=== PATIENT | female | born 1930 | race African-American/Black ===

== ENCOUNTER 2016-07-09 14:54 | Inpatient (IN) | payer MEDICARE, MEDICAID ==
[~2016-07-09] VITALS: Ht 165.1 cm; Wt 72.6 kg
[2016-07-09 15:37] VITALS: BP 172/116
--- NOTE | 2016-07-09 16:14 | Diagnostic Imaging Report ---
Indication: Chest Pain Comparison: None A single view chest radiograph was obtained. Findings: No definite infiltrate or pulmonary vascular congestion identified. The heart is enlarged. The aorta is mildly enlarged consistent with atherosclerotic vascular disease. The bones are osteopenic. Impression: No acute disease
[2016-07-09] MEDS ORDERED: Diltiazem 25mg/5ml IV ONE ×3 (16:15→21:00)
[2016-07-09] MEDS ORDERED: Calcium Gluconate 1gm/10ml vial IVP ONE (16:15)
[2016-07-09 17:00] LABS: MEAN CORPUSCULAR HEMOGLOBIN 31.3 PG (27.0-31.0); MEAN CORPUSCULAR HGB CONC 32.1 G/DL (32.0-36.0); MEAN CORPUSCULAR VOLUME 98 FL (80-99); MEAN PLATELET VOLUME 9.1 FL (6.5-10.1); PLATELET COUNT 193 K/UL (150-450); RED BLOOD COUNT 5.41 M/UL (4.20-5.40); RED CELL DISTRIBUTION WIDTH 12.4 % (11.6-14.8); WHITE BLOOD COUNT 6.8 K/UL (4.8-10.8)
[2016-07-09 17:11] LABS: ALANINE AMINOTRANSFERASE 26 U/L (3-33); ALBUMIN/GLOBULIN RATIO 0.9 (1.0-2.7); ANION GAP 11 (5-15); ASPARTATE AMINO TRANSFERASE 46 U/L (5-40); CALCIUM 11.5 mg/dL (8.6-10.2); CARBON DIOXIDE 24 mEQ/L (20-30); CHLORIDE 97 mEQ/L (98-107); HEMOLYSIS 14; POTASSIUM 4.3 mEQ/L (3.4-4.9); SODIUM 132 mEQ/L (135-145); TOTAL PROTEIN 9.3 g/dL (6.6-8.7); TROPONIN I < 0.30 ng/mL (<=0.30)
[2016-07-09 17:22] LABS: CKMB < 1.5 ng/mL (< 3.8)
[2016-07-09 17:24] LABS: INR 1.2 (0.9-1.1)
[2016-07-09 17:33] LABS: BILIRUBIN,DIRECT 0.8 mg/dL (0.1-0.3)
[2016-07-09 17:54] LABS: APPEARANCE,URINE CLEAR; KETONES,URINE 3+ (NEGATIVE); LEUKOCYTE ESTERASE ,URINE 2+ (NEGATIVE); NITRITE,URINE POSITIVE (NEGATIVE); PH,URINE 5 (4.5-8.0); PROTEIN,URINE 1+ (NEGATIVE); UROBILINOGEN,URINE 4 MG/DL (0.0-1.0)
[2016-07-09] MEDS ORDERED: Enoxaparin 80mg Inj SUBQ ONE (18:00)
[2016-07-09 18:06] LABS: BACTERIA,URINE MANY /HPF; SQUAMOUS EPITHELIAL CELL,UR FEW /LPF (NONE/OCC)
[2016-07-09 18:13] LABS: BAND NEUTROPHILS % (MANUAL) 0 % (0-8); BASOPHILS % (MANUAL) 0 % (0-2); EOSINOPHILS % (MANUAL) 0 % (0-3); LYMPHOCYTES % (MANUAL) 9 % (20-45); NEUTROPHILS % (MANUAL) 87 % (45-75); PLATELET ESTIMATE ADEQUATE; PLATELET MORPHOLOGY NORMAL; TOTAL CELLS COUNTED 100
[2016-07-09 18:42] VITALS: BP 162/92
--- NOTE | 2016-07-09 19:40 | Emergency Room Report ---
History of Present Illness General Chief Complaint: General Complaint Source: Patient, Medical Record Present Illness HPI 86-year-old female presents ED her evaluation. Per EMS patient was complaining of flank pain x1 day. Pain is bilateral. 06/11. Throbbing. Nonradiating. No aggravating or relieving factors. Denies chest pain or shortness of breath. Patient is bedbound. Nonambulatory. No other aggravating or relieving factors. Denies any other associated symptoms Allergies: Coded Allergies: CODEINE (Verified Allergy, Intermediate, 07/09/16) MORPHINE (Verified Allergy, Intermediate, 07/09/16) PENICILLINS (Verified Allergy, Intermediate, 07/09/16) Patient History Past Medical History: HTN, AFib Past Surgical History: none Pertinent Family History: none Social History: Denies: alcohol use, drug use, smoking Now: No Immunizations: UTD Reviewed Nursing Documentation: PMH: Agreed, PSxH: Agreed Nursing Documentation-PMH Hx Hypertension: Yes Review of Systems All Other Systems: negative except mentioned in HPI Physical Exam Vital Signs Date Time Temp Pulse Resp B/P Pulse Ox O2 Delivery O2 Flow Rate FiO2 07/09/16 14:50 97.2 78 16 164/90 98 Room Air Sp02 EP Interpretation: reviewed, normal General Appearance: no apparent distress, alert, GCS 15, non-toxic Head: normocephalic Eyes: bilateral eye PERRL, bilateral eye normal inspection ENT: normal ENT inspection Neck: normal inspection Respiratory: chest non-tender, lungs clear, normal breath sounds, speaking full sentences Cardiovascular #1: tachycardia Gastrointestinal: normal inspection Rectal: deferred Genitourinary: no CVA tenderness Musculoskeletal: swelling - b/l LE Neurologic: alert, oriented x3, responsive Psychiatric: normal inspection Skin: normal inspection Lymphatic: normal inspection Procedures Critical Care Time Critical Care Time i. I feel this is a highly complex case requiring extensive working including EKG/Rhythm strip, Xray/CT/US, Blood/urine lab work, repeat exams while in ED, and administration of strong opiates/narcotics for pain control, admission to hospital or close patient follow up. Total time: 30 min bedside evaluation and treatment excludes procedures (EKG). Reason for critical care: atrial fibrillation with RVR Possible complications: hypotension, hypertension, WA, shock, arrhythmias, metabolic acidosis, end organ damage, respiratory failure. Interventions: As, IV fluids, EKG, chest x-ray, Cardizem. abx. lovenox Course: Patient brought in for bilateral leg pain and swelling. EKG shows afib wtih RVR - given cardizem with cardioversion. Ultrasound shows acute thrombus in left leg. Given Lovenox. Given antibiotics. Consultations: nursing staff, EMS, family Performed by: Dr Baker Tolerated well condition = serious j. because of unstable vital signs this patient had a condition that could potentially threaten life or limb. I feel this is a critical patient who required my full attention while patient was considered critical. Total Critical Care Time excluding procedures was greater than 35 minutes Medical Decision Making Diagnostic Impression: Primary Impression: Atrial fibrillation with rapid ventricular response Additional Impressions: DVT (deep venous thrombosis) Qualified Codes: I82.402 - Acute embolism and thrombosis of unspecified deep veins of left lower extremity UTI (urinary tract infection) Qualified Codes: N39.0 - Urinary tract infection, site not specified ER Course Hospital Course 86-year-old female presents ED for bilateral leg swelling, hypertensive Differential diagnoses include: DVT, cellulitis, sepsis Clinical course Patient placed on stretcher. on monitoring manager which shows A. fib with RVR. Cardizem given with cardioversion. After initial history and physical I ordered labs, EKG, chest x-ray, US labs reviewed- no leukocytosis, hemoglobin/hematocrit ok, electrolytes okay, troponins negative, UA + bacteria EKG - afib wtih RVR, no acute changes Chest x-ray- no acute process doppler LE - acute DVT LLE IV fluids given. Antibiotics given. Lovenox given. Case discussed with Dr. Farah and he agreed to accept the patient to his service for further care and support I. I feel this is a highly complex case requiring extensive working including EKG/Rhythm strip, Xray/CT/US, Blood/urine lab work, repeat exams while in ED, and administration of strong opiates/narcotics for pain control, admission to hospital or close patient follow up. Diagnosis - afib with RVR, DVT, UTI admitted to telemetry in serious condition Labs Test 07/09/16 16:30 07/09/16 16:31 07/09/16 17:18 Prothrombin Time 12.0 SEC (9.30-11.50) Prothromb Time International Ratio 1.2 (0.9-1.1) Activated Partial Thromboplast Time 34 SEC (23-33) White Blood Count 6.8 K/UL (4.8-10.8) Red Blood Count 5.41 M/UL (4.20-5.40) Hemoglobin 16.9 G/DL (12.0-16.0) Hematocrit 52.7 % (37.0-47.0) Mean Corpuscular Volume 98 FL (80-99) Mean Corpuscular Hemoglobin 31.3 PG (27.0-31.0) Mean Corpuscular Hemoglobin Concent 32.1 G/DL (32.0-36.0) Red Cell Distribution Width 12.4 % (11.6-14.8) Platelet Count 193 K/UL (150-450) Mean Platelet Volume 9.1 FL (6.5-10.1) Neutrophils (%) (Auto) % (45.0-75.0) Lymphocytes (%) (Auto) % (20.0-45.0) Monocytes (%) (Auto) % (1.0-10.0) Eosinophils (%) (Auto) % (0.0-3.0) Basophils (%) (Auto) % (0.0-2.0) Differential Total Cells Counted 100 Neutrophils % (Manual) 87 % (45-75) Lymphocytes % (Manual) 9 % (20-45) Monocytes % (Manual) 4 % (1-10) Eosinophils % (Manual) 0 % (0-3) Basophils % (Manual) 0 % (0-2) Band Neutrophils 0 % (0-8) Platelet Estimate Adequate Platelet Morphology Normal Red Blood Cell Morphology Normal Sodium Level 132 mEQ/L (135-145) Potassium Level 4.3 mEQ/L (3.4-4.9) Chloride Level 97 mEQ/L (98-107) Carbon Dioxide Level 24 mEQ/L (20-30) Anion Gap 11 (5-15) Blood Urea Nitrogen 21 mg/dL (7-23) Creatinine 1.0 mg/dL (0.5-0.9) Estimat Glomerular Filtration Rate mL/min (>60) Glucose Level 128 mg/dL (74-106) Calcium Level 11.5 mg/dL (8.6-10.2) Total Bilirubin 1.6 mg/dL (0.0-1.2) Direct Bilirubin 0.8 mg/dL (0.1-0.3) Aspartate Amino Transf (AST/SGOT) 46 U/L (5-40) Alanine Aminotransferase (ALT/SGPT) 26 U/L (3-33) Alkaline Phosphatase 139 U/L (35-104) Total Creatine Kinase 40 U/L (26-140) Creatine Kinase MB < 1.5 ng/mL (< 3.8) Creatine Kinase MB Relative Index Troponin I < 0.30 ng/mL (<=0.30) Total Protein 9.3 g/dL (6.6-8.7) Albumin 4.6 g/dL (3.5-5.2) Globulin 4.7 g/dL Albumin/Globulin Ratio 0.9 (1.0-2.7) Urine Color Yellow Urine Appearance Clear Urine pH 5 (4.5-8.0) Urine Specific [place] 1.020 (1.005-1.035) Urine Protein 1+ (NEGATIVE) Urine Glucose (UA) Negative (NEGATIVE) Urine Ketones 3+ (NEGATIVE) Urine Occult Blood 1+ (NEGATIVE) Urine Nitrite Positive (NEGATIVE) Urine Bilirubin Negative (NEGATIVE) Urine Urobilinogen 4 MG/DL (0.0-1.0) Urine Leukocyte Esterase 2+ (NEGATIVE) Urine RBC 2-4 /HPF (0 - 2) Urine WBC 5-10 /HPF (0 - 2) Urine Squamous Epithelial Cells Few /LPF (NONE/OCC) Urine Bacteria Many /HPF (NONE) EKG Diagnostic Results Rate: tachycardiac Rhythm: other - afib wtih RVR ST Segments: no acute changes ASA given to the pt in ED: No Rhythm Strip Diag. Results EP Interpretation: yes Rhythm: no PVC's, no ectopy Chest X-Ray Diagnostic Results EP Interpretation: Yes Findings: no consolidation, no effusion, no pneumothorax, no acute cardiopulmonary disease Number of Views: 1 CT/MRI/US Diagnostic Results CT/MRI/US Diagnostic Results : Imaging Test Ordered: US Impression bilateral doppler US - acute DVT in LLE Last Vital Signs Date Time Temp Pulse Resp B/P Pulse Ox O2 Delivery O2 Flow Rate FiO2 07/09/16 18:42 97.0 115 19 162/92 99 Room Air Status: improved Disposition: ADMITTED INPATIENT Condition: Serious Referrals: NON PHYSICIAN (PCP) CLARISSA BAKER M.D. Jul 09, 2016 19:39
[2016-07-09] MEDS ORDERED: BACLOFEN10 MG ORAL (20:09)
[2016-07-09] MEDS ORDERED: ASCORBIC ACID500 MG ORAL (20:09)
[2016-07-09] MEDS ORDERED: LACTULOSE20 GM/301 ORAL (20:09)
[2016-07-09] MEDS ORDERED: LEVOTHYROXINE125 MCG ORAL (20:09)
[2016-07-09] MEDS ORDERED: COLCHICINE0.6 M1 PO (20:09)
[2016-07-09] MEDS ORDERED: FUROSEMIDE40 MG ORAL (20:09)
[2016-07-09] MEDS ORDERED: BENAZEPRIL HCL40 MG ORAL (20:09)
[2016-07-09] MEDS ORDERED: MELATONIN3 M2 PO (20:09)
[2016-07-09] MEDS ORDERED: DOCUSATE SODIU100 MG ORAL (20:09)
[2016-07-09] MEDS ORDERED: ALLOPURINOL300 M1 ORAL (20:16)
[2016-07-09] MEDS ORDERED: ELIQUIS2.5 MG PO (20:16)
--- NOTE | 2016-07-09 20:17 | History & Physical ---
History and Physical History & Physicial The patient was seen and examined at bedside and all new and available data was reviewed in the patients chart Last 24 Hour Vital Signs Date Time Temp Pulse Resp B/P Pulse Ox O2 Delivery O2 Flow Rate FiO2 07/09/16 18:42 97.0 115 19 162/92 99 Room Air 07/09/16 16:44 111 174/109 07/09/16 15:37 97.0 126 27 172/116 99 Room Air 07/09/16 14:50 97.2 78 16 164/90 98 Room Air Labs Test 07/09/16 16:30 07/09/16 16:31 07/09/16 17:18 Prothrombin Time 12.0 SEC (9.30-11.50) Prothromb Time International Ratio 1.2 (0.9-1.1) Activated Partial Thromboplast Time 34 SEC (23-33) White Blood Count 6.8 K/UL (4.8-10.8) Red Blood Count 5.41 M/UL (4.20-5.40) Hemoglobin 16.9 G/DL (12.0-16.0) Hematocrit 52.7 % (37.0-47.0) Mean Corpuscular Volume 98 FL (80-99) Mean Corpuscular Hemoglobin 31.3 PG (27.0-31.0) Mean Corpuscular Hemoglobin Concent 32.1 G/DL (32.0-36.0) Red Cell Distribution Width 12.4 % (11.6-14.8) Platelet Count 193 K/UL (150-450) Mean Platelet Volume 9.1 FL (6.5-10.1) Neutrophils (%) (Auto) % (45.0-75.0) Lymphocytes (%) (Auto) % (20.0-45.0) Monocytes (%) (Auto) % (1.0-10.0) Eosinophils (%) (Auto) % (0.0-3.0) Basophils (%) (Auto) % (0.0-2.0) Differential Total Cells Counted 100 Neutrophils % (Manual) 87 % (45-75) Lymphocytes % (Manual) 9 % (20-45) Monocytes % (Manual) 4 % (1-10) Eosinophils % (Manual) 0 % (0-3) Basophils % (Manual) 0 % (0-2) Band Neutrophils 0 % (0-8) Platelet Estimate Adequate Platelet Morphology Normal Red Blood Cell Morphology Normal Sodium Level 132 mEQ/L (135-145) Potassium Level 4.3 mEQ/L (3.4-4.9) Chloride Level 97 mEQ/L (98-107) Carbon Dioxide Level 24 mEQ/L (20-30) Anion Gap 11 (5-15) Blood Urea Nitrogen 21 mg/dL (7-23) Creatinine 1.0 mg/dL (0.5-0.9) Estimat Glomerular Filtration Rate mL/min (>60) Glucose Level 128 mg/dL (74-106) Calcium Level 11.5 mg/dL (8.6-10.2) Total Bilirubin 1.6 mg/dL (0.0-1.2) Direct Bilirubin 0.8 mg/dL (0.1-0.3) Aspartate Amino Transf (AST/SGOT) 46 U/L (5-40) Alanine Aminotransferase (ALT/SGPT) 26 U/L (3-33) Alkaline Phosphatase 139 U/L (35-104) Total Creatine Kinase 40 U/L (26-140) Creatine Kinase MB < 1.5 ng/mL (< 3.8) Creatine Kinase MB Relative Index Troponin I < 0.30 ng/mL (<=0.30) Total Protein 9.3 g/dL (6.6-8.7) Albumin 4.6 g/dL (3.5-5.2) Globulin 4.7 g/dL Albumin/Globulin Ratio 0.9 (1.0-2.7) Urine Color Yellow Urine Appearance Clear Urine pH 5 (4.5-8.0) Urine Specific [place] 1.020 (1.005-1.035) Urine Protein 1+ (NEGATIVE) Urine Glucose (UA) Negative (NEGATIVE) Urine Ketones 3+ (NEGATIVE) Urine Occult Blood 1+ (NEGATIVE) Urine Nitrite Positive (NEGATIVE) Urine Bilirubin Negative (NEGATIVE) Urine Urobilinogen 4 MG/DL (0.0-1.0) Urine Leukocyte Esterase 2+ (NEGATIVE) Urine RBC 2-4 /HPF (0 - 2) Urine WBC 5-10 /HPF (0 - 2) Urine Squamous Epithelial Cells Few /LPF (NONE/OCC) Urine Bacteria Many /HPF (NONE) Dictation number : [id number] (Patient was seen earlier today. Signature timestamp does not reflect patient encounter time) Darvin Norton MD, MD Jul 09, 2016 20:17
[2016-07-09] MEDS ORDERED: DuoNeb 0.5-3(2.5)mg/3ml neb HHN PRN (20:45)
[2016-07-09] MEDS ORDERED: Heparin 25,000u/D5W 500ml 500 ML IV SCH (20:45)
[2016-07-09] MEDS ORDERED: Nitroglycerin Subl 0.4mg tab (Bottle Of 25) SL PRN (20:45)
[2016-07-09] MEDS ORDERED: Miralax 17gm pkt ORAL PRN (20:45)
[2016-07-09] MEDS ORDERED: Mylanta II UD 30ml ORAL PRN (20:45)
[2016-07-09 21:53] VITALS: BP 126/80
[2016-07-09 22:26] VITALS: BP 110/69
[2016-07-10] VITALS: BP 126/82
[2016-07-10 04:00] VITALS: BP 132/61
[2016-07-10] MEDS ORDERED: OMEPRAZOLE20 M2 ORAL (04:37)
[2016-07-10] MEDS ORDERED: TRAMADOL HCL50 MG ORAL (04:37)
[2016-07-10] MEDS ORDERED: PREDNISOLO15 MG/5 M1 OP (04:37)
[2016-07-10] MEDS ORDERED: MULTIVITAMINS1 EAC8 ORAL (04:37)
[2016-07-10] MEDS ORDERED: Colchicine PO (04:37)
[2016-07-10] MEDS ORDERED: Apixaban PO (04:37)
[2016-07-10] MEDS ORDERED: VENTOLIN HFA18 GM INH (04:37)
[2016-07-10] MEDS ORDERED: MELATONIN3 MG ORAL (04:37)
[2016-07-10] MEDS ORDERED: LACTULOSE20 GM/301 ORAL (04:37)
[2016-07-10] MEDS ORDERED: SENNA8.6 M2 PO (04:37)
[2016-07-10] MEDS ORDERED: VITAMIN D400 INTLU ORAL (04:37)
[2016-07-10] MEDS ORDERED: MONTELUKAST SOD10 MG ORAL (04:37)
[2016-07-10] MEDS ORDERED: LASIX40 MG ORAL (04:37)
[2016-07-10] MEDS ORDERED: K-TAB10 MEQ PO (04:37)
[2016-07-10] MEDS ORDERED: REGLAN10 MG ORAL (04:37)
[2016-07-10] MEDS: Heparin 25,000u/D5W 500ml 500 ML IV SCH (04:51)
[2016-07-10] MEDS: Levothyroxine 125mcg tab ORAL SCH ×2 (06:30→06:52)
[2016-07-10 07:37] LABS: BASOPHILS % (AUTO) 0.7 % (0.0-2.0); EOSINOPHILS % (AUTO) 0.2 % (0.0-3.0); LYMPHOCYTES % (AUTO) 17.2 % (20.0-45.0); MEAN CORPUSCULAR HEMOGLOBIN 31.3 PG (27.0-31.0); MEAN CORPUSCULAR HGB CONC 32.5 G/DL (32.0-36.0); MEAN CORPUSCULAR VOLUME 96 FL (80-99); MEAN PLATELET VOLUME 9.8 FL (6.5-10.1); MONOCYTES % (AUTO) 13.5 % (1.0-10.0); NEUTROPHILS % (AUTO) 68.3 % (45.0-75.0); PLATELET COUNT 215 K/UL (150-450); RED BLOOD COUNT 4.71 M/UL (4.20-5.40); RED CELL DISTRIBUTION WIDTH 13.1 % (11.6-14.8); WHITE BLOOD COUNT 9.6 K/UL (4.8-10.8)
[2016-07-10 07:53] VITALS: BP 105/56
[2016-07-10 08:19] LABS: ALANINE AMINOTRANSFERASE 22 U/L (3-33); ALBUMIN/GLOBULIN RATIO 1.2 (1.0-2.7); ANION GAP 27 (5-15); ASPARTATE AMINO TRANSFERASE 46 U/L (5-40); CARBON DIOXIDE 19 mEQ/L (20-30); CHLORIDE 93 mEQ/L (98-107); CREATININE 1.7 mg/dL (0.5-0.9); HEMOLYSIS 112; POTASSIUM 4.6 mEQ/L (3.4-4.9); SODIUM 139 mEQ/L (135-145); TOTAL PROTEIN 7.4 g/dL (6.6-8.7)
[2016-07-10 08:27] LABS: INR 1.4 (0.9-1.1)
[2016-07-10 08:55] LABS: BILIRUBIN,DIRECT 0.5 mg/dL (0.1-0.3)
[2016-07-10] MEDS: Diltiazem 25mg/5ml IV PRN ×2 (09:28→12:53)
[2016-07-10 11:59] VITALS: BP 112/64
--- NOTE | 2016-07-10 12:56 | Consultation ---
History of Present Illness General Date patient seen: Jul 10, 2016 Chief Complaint: shortness of breath Referring physician: Dr. Farah Reason for Consultation: Dyspnea Present Illness HPI 86 yo female with pmhx A-fib and HTN denies COPD and denies history of smoking tobacco in the past. Patient presenting to [facility] ER with complaint of weakness and shortness of breath. I was asked to evaluate the patients respiratory status. Initial CXR has been negative for acute infiltrate or effusion, however a venous doppler revealed an acute thrombus in left lower extermity. At this time the patient is not tachycardic and there have not been reports of desaturation. We recommend at this point anti-coagulation therapy to treat the patients acute DVT and mitigate thromboembolism. Further tests are pending at this time priority to obtain heart rate control and supplemental oxygen therapy. Allergies: Coded Allergies: CODEINE (Verified Allergy, Intermediate, 07/09/16) MORPHINE (Verified Allergy, Intermediate, 07/09/16) PENICILLINS (Verified Allergy, Intermediate, 07/09/16) Medication History Scheduled Allopurinol* (Allopurinol*), 300 MG ORAL DAILY, (Reported) Ascorbic Acid* (Ascorbic Acid*), 500 MG ORAL DAILY, (Reported) Baclofen* (Baclofen*), 10 MG ORAL THREE TIMES A DAY, (Reported) Benazepril Hcl* (Benazepril Hcl*), 40 MG ORAL DAILY, (Reported) Cephalexin* (Cephalexin*), 500 MG ORAL EVERY 8 HOURS Diltiazem Hcl* (Cardizem*), 30 MG PO QID, (Reported) Docusate Sodium* (Docusate Sodium*), 100 MG ORAL TWICE A DAY, (Reported) Furosemide* (Lasix*), 40 MG ORAL BID, (Reported) Levothyroxine Sodium* (Levothyroxine Sodium*), 125 MCG ORAL DAILY, (Reported) Melatonin (Melatonin), 3 MG ORAL BEDTIME, (Reported) Mineral Oil (Mineral Oil Enema), 133 ML RC EVERY OTHER DAY, (Reported) Montelukast Sodium* (Montelukast Sodium*), 10 MG ORAL DAILY, (Reported) Multivitamin With Minerals (Multivitamins With Minerals*), 1 TAB ORAL DAILY, ( Reported) Nitrofurantoin Monohyd/M-Cryst* (Macrobid 100 Mg*), 100 MG ORAL EVERY 12 HOURS Omeprazole (Omeprazole), 20 MG ORAL DAILY, (Reported) Potassium Chloride (K-Tab), 20 MEQ PO DAILY, (Reported) Prednisolone* (Prelone*), 15 MG OP BID, (Reported) Sennosides (Senna), 8.6 MG PO BID, (Reported) Sennosides* (Sennosides*), 8.6 MG ORAL DAILY, (Reported) Vitamin D (Vitamin D3), 5,000 UNITS ORAL DAILY, (Reported) Warfarin Sod* (Warfarin Sod*), 4 MG ORAL DAILY, (Reported) [Apixaban], 2.5 MG PO BID, (Reported) [Colchicine], 0.6 MG PO DAILY, (Reported) Scheduled PRN Acetaminophen (Acetaminophen), 650 MG ORAL Q4HR PRN for Fever/Headache/Mild Pain , (Reported) Albuterol Sulfate (Ventolin Hfa), 2 PUFFS INH EVERY 12 HOURS PRN for Shortness of Breath, (Reported) Lactulose (Lactulose*), 15 ML ORAL DAILY PRN for Constipation, (Reported) Metoclopramide Hcl* (Reglan*), 10 MG ORAL EVERY 8 HOURS PRN for Nausea & Vomiting, (Reported) Ondansetron (Zofran), 4 MG ORAL Q6H PRN for Nausea & Vomiting, (Reported) Polyethylene Glycol 3350* (Polyethylene Glycol 3350*), 17 GM ORAL BEDTIME PRN for Constipation, (Reported) Temazepam* (Restoril*), 15 MG ORAL BEDTIME PRN for Insomnia, (Reported) Tramadol Hcl* (Ultram*), 100 MG ORAL Q4HR PRN for For Pain, (Reported) Miscellaneous Medications Lactulose (Lactulose*), 30 ML ORAL, (Reported) Nitroglycerin (Nitroglycerin), 0.4 MG SL, (Reported) Vitamin A & D (Vitamin A & D Ointment), (Reported) Patient History Healthcare decision maker Resuscitation status Full Code Advanced Directive on File Past Medical/Surgical History Past Medical/Surgical History: (1) ATN (acute tubular necrosis) (2) Decubitus ulcer (3) Renal failure (4) Abdominal pain (5) HTN (hypertension) (6) Alzheimer's dementia (7) Hypothyroidism Review of Systems Constitutional: Reports: malaise, weakness Respiratory: Reports: cough, shortness of breath Cardiovascular: Reports: chest pain, palpitations Musculoskeletal: Reports: joint pain, joint swelling, muscle pain, muscle stiffness Physical Exam General Appearance: no apparent distress, lethargic, confused, mild distress Lines, tubes and drains: peripheral HEENT: normocephalic, atraumatic, PERRL Neck: non-tender, normal alignment, supple Respiratory/Chest: chest wall non-tender, accessory muscle use, crackles/rales Breasts: no masses Cardiovascular/Chest: normal peripheral pulses, normal rate, regular rhythm, no JVD Abdomen: normal bowel sounds, non tender, soft, no organomegaly Genitourinary/Rectal: normal genital exam, normal rectal exam Extremities: calf tenderness, inflammation, slow capillary refill, trace edema Skin Exam: warm/dry, palled Neurologic: glass calibrator II-XII grossly normal, responsive, disoriented Last 24 Hour Vital Signs Date Time Temp Pulse Resp B/P Pulse Ox O2 Delivery O2 Flow Rate FiO2 07/10/16 11:59 97.7 125 20 112/64 99 Room Air 07/10/16 09:28 156 105/56 07/10/16 08:43 105/56 07/10/16 08:04 125 07/10/16 07:53 97.0 138 18 105/56 100 Room Air 07/10/16 04:00 97.9 130 20 132/61 100 Room Air 07/10/16 04:00 160 07/10/16 00:00 97.9 99 20 126/82 100 Room Air 07/10/16 00:00 129 07/09/16 22:26 97.7 85 18 110/69 98 Room Air 07/09/16 21:54 97.0 115 19 126/80 99 Room Air 07/09/16 21:53 97.0 126 18 126/80 99 Room Air 07/09/16 21:39 148 126/80 07/09/16 18:42 97.0 115 19 162/92 99 Room Air 07/09/16 16:44 111 174/109 07/09/16 15:37 97.0 126 27 172/116 99 Room Air 07/09/16 14:50 97.2 78 16 164/90 98 Room Air Intake and Output 07/09/16 07/10/16 19:00 07:00 Intake Total 52.254 ml Output Total 700 ml Balance -647.746 ml Intake IV Total 52.254 ml Output Urine Total 700 ml Laboratory Tests Test 07/09/16 16:30 07/09/16 16:31 07/09/16 17:18 07/10/16 05:25 Prothrombin Time 12.0 SEC (9.30-11.50) H 14.0 SEC (9.30-11.50) H Prothromb Time International Ratio 1.2 (0.9-1.1) H 1.4 (0.9-1.1) H Activated Partial Thromboplast Time 34 SEC (23-33) H 50 SEC (23-33) H White Blood Count 6.8 K/UL (4.8-10.8) 9.6 K/UL (4.8-10.8) Red Blood Count 5.41 M/UL (4.20-5.40) H 4.71 M/UL (4.20-5.40) Hemoglobin 16.9 G/DL (12.0-16.0) H 14.7 G/DL (12.0-16.0) Hematocrit 52.7 % (37.0-47.0) H 45.4 % (37.0-47.0) Mean Corpuscular Volume 98 FL (80-99) 96 FL (80-99) Mean Corpuscular Hemoglobin 31.3 PG (27.0-31.0) H 31.3 PG (27.0-31.0) H Mean Corpuscular Hemoglobin Concent 32.1 G/DL (32.0-36.0) 32.5 G/DL (32.0-36.0) Red Cell Distribution Width 12.4 % (11.6-14.8) 13.1 % (11.6-14.8) Platelet Count 193 K/UL (150-450) 215 K/UL (150-450) Mean Platelet Volume 9.1 FL (6.5-10.1) 9.8 FL (6.5-10.1) Neutrophils (%) (Auto) % (45.0-75.0) 68.3 % (45.0-75.0) Lymphocytes (%) (Auto) % (20.0-45.0) 17.2 % (20.0-45.0) L Monocytes (%) (Auto) % (1.0-10.0) 13.5 % (1.0-10.0) H Eosinophils (%) (Auto) % (0.0-3.0) 0.2 % (0.0-3.0) Basophils (%) (Auto) % (0.0-2.0) 0.7 % (0.0-2.0) Differential Total Cells Counted 100 Neutrophils % (Manual) 87 % (45-75) H Lymphocytes % (Manual) 9 % (20-45) L Monocytes % (Manual) 4 % (1-10) Eosinophils % (Manual) 0 % (0-3) Basophils % (Manual) 0 % (0-2) Band Neutrophils 0 % (0-8) Platelet Estimate Adequate Platelet Morphology Normal Red Blood Cell Morphology Normal Sodium Level 132 mEQ/L (135-145) L 139 mEQ/L (135-145) Potassium Level 4.3 mEQ/L (3.4-4.9) 4.6 mEQ/L (3.4-4.9) Chloride Level 97 mEQ/L (98-107) L 93 mEQ/L (98-107) L Carbon Dioxide Level 24 mEQ/L (20-30) 19 mEQ/L (20-30) L Anion Gap 11 (5-15) 27 (5-15) H Blood Urea Nitrogen 21 mg/dL (7-23) 30 mg/dL (7-23) H Creatinine 1.0 mg/dL (0.5-0.9) H 1.7 mg/dL (0.5-0.9) #H Estimat Glomerular Filtration Rate mL/min (>60) mL/min (>60) Glucose Level 128 mg/dL (74-106) H 102 mg/dL (74-106) Calcium Level 11.5 mg/dL (8.6-10.2) H 11.0 mg/dL (8.6-10.2) H Total Bilirubin 1.6 mg/dL (0.0-1.2) H 1.3 mg/dL (0.0-1.2) H Direct Bilirubin 0.8 mg/dL (0.1-0.3) H 0.5 mg/dL (0.1-0.3) H Aspartate Amino Transf (AST/SGOT) 46 U/L (5-40) H 46 U/L (5-40) H Alanine Aminotransferase (ALT/SGPT) 26 U/L (3-33) 22 U/L (3-33) Alkaline Phosphatase 139 U/L (35-104) H 107 U/L (35-104) H Total Creatine Kinase 40 U/L (26-140) Creatine Kinase MB < 1.5 ng/mL (< 3.8) Creatine Kinase MB Relative Index Troponin I < 0.30 ng/mL (<=0.30) Total Protein 9.3 g/dL (6.6-8.7) H 7.4 g/dL (6.6-8.7) Albumin 4.6 g/dL (3.5-5.2) 4.1 g/dL (3.5-5.2) Globulin 4.7 g/dL 3.3 g/dL Albumin/Globulin Ratio 0.9 (1.0-2.7) L 1.2 (1.0-2.7) Urine Color Yellow Urine Appearance Clear Urine pH 5 (4.5-8.0) Urine Specific [place] 1.020 (1.005-1.035) Urine Protein 1+ (NEGATIVE) H Urine Glucose (UA) Negative (NEGATIVE) Urine Ketones 3+ (NEGATIVE) H Urine Occult Blood 1+ (NEGATIVE) H Urine Nitrite Positive (NEGATIVE) H Urine Bilirubin Negative (NEGATIVE) Urine Urobilinogen 4 MG/DL (0.0-1.0) H Urine Leukocyte Esterase 2+ (NEGATIVE) H Urine RBC 2-4 /HPF (0 - 2) H Urine WBC 5-10 /HPF (0 - 2) H Urine Squamous Epithelial Cells Few /LPF (NONE/OCC) Urine Bacteria Many /HPF (NONE) H Test 07/10/16 11:00 Activated Partial Thromboplast Time 91 SEC (23-33) H Microbiology Date/Time Source Procedure Growth Status 07/09/16 17:18 Urine,Clean Catch Urine Culture - Preliminary Gram Negative Jacob Resulted Height (Feet): 5 Height (Inches): 5.00 Weight (Pounds): 160 Medications Current Medications Medications (Trade) Dose Ordered Sig/Gt Route PRN Reason Start Time Stop Time Status Last Admin Dose Admin Acetaminophen (Tylenol) 650 mg Q4H PRN ORAL fever 07/09/16 20:45 08/08/16 20:44 Al Hydroxide/Mg Hydroxide (Mylanta II) 30 ml Q6H PRN ORAL dyspepsia 07/09/16 20:45 08/08/16 20:44 Albuterol/ Ipratropium 3 ml 3 ml Q8H PRN HHN Shortness of Breath 07/09/16 20:45 07/14/16 20:44 Allopurinol (Allopurinol) 300 mg DAILY ORAL 07/10/16 09:00 08/09/16 08:59 Benazepril HCl (Lotensin) 40 mg DAILY ORAL 07/10/16 09:00 08/09/16 08:59 Dextrose (Dextrose 50%) STAT PRN IV Hypoglycemia 07/09/16 20:45 08/08/16 20:44 Diltiazem HCl (Cardizem) 10 mg Q1H PRN IV HR>120 07/10/16 08:00 08/09/16 07:59 07/10/16 09:28 Heparin Sodium/ Dextrose (Heparin) 500 ml @ 26.127 mls/ hr adjust per protocol IV 07/10/16 04:30 08/09/16 04:29 07/10/16 04:51 Levothyroxine Sodium (Synthroid) 125 mcg ACBREAKFAST ORAL 07/10/16 06:30 08/09/16 06:29 Nitroglycerin (Ntg) 0.4 mg Q5M X 3 DOSES PRN SL Prn Chest Pain 07/09/16 20:45 08/08/16 20:44 Ondansetron HCl (Zofran) 4 mg Q6H PRN IVP Nausea & Vomiting 07/09/16 20:45 08/08/16 20:44 Polyethylene Glycol (Miralax) 17 gm HSPRN PRN ORAL Constipation 07/09/16 20:45 08/08/16 20:44 Temazepam (Restoril) 15 mg HSPRN PRN ORAL Insomnia 07/09/16 20:45 07/16/16 20:44 Assessment/Plan Problem List: (1) Atrial fibrillation with rapid ventricular response ICD Codes: I48.91 - Unspecified atrial fibrillation SNOMED: 784882073510257 (2) DVT (deep venous thrombosis) ICD Codes: I82.409 - Acute embolism and thrombosis of unspecified deep veins of unspecified lower extremity SNOMED: 552530578 Qualifiers: Qualified Codes: I82.402 - Acute embolism and thrombosis of unspecified deep veins of left lower extremity (3) UTI (urinary tract infection) ICD Codes: N39.0 - Urinary tract infection, site not specified SNOMED: 62051810 Qualifiers: Qualified Codes: N39.0 - Urinary tract infection, site not specified Status: stable, progressing Assessment/Plan Assessment/Plan on heparin drip and coumadine f/u pt, ptt check sensitivity of urine organism heart rate controlled med/surg same antibiotics all labs/ meds reviewed MIMI MCMILLAN Jul 10, 2016 12:56
--- NOTE | 2016-07-10 13:48 | Cardiology Progress Note ---
Assessment/Plan Assessment/Plan afib (not clear if chronic recurrent or permananet ) tachy dvt acute depsie eliquis dm htn cad per report hypothyroid agree with heparin can will sarath to be mihaela irvin due to fialjan if eliquis add cardizem for hr control echo to evlaute lv systolic fucntion dc albuterol cardizem short activng for hr control [id number] Objective Last 24 Hour Vital Signs Date Time Temp Pulse Resp B/P Pulse Ox O2 Delivery O2 Flow Rate FiO2 07/10/16 12:53 142 112/64 07/10/16 11:59 97.7 125 20 112/64 99 Room Air 07/10/16 09:28 156 105/56 07/10/16 08:43 105/56 07/10/16 08:04 125 07/10/16 07:53 97.0 138 18 105/56 100 Room Air 07/10/16 04:00 97.9 130 20 132/61 100 Room Air 07/10/16 04:00 160 07/10/16 00:00 97.9 99 20 126/82 100 Room Air 07/10/16 00:00 129 07/09/16 22:26 97.7 85 18 110/69 98 Room Air 07/09/16 21:54 97.0 115 19 126/80 99 Room Air 07/09/16 21:53 97.0 126 18 126/80 99 Room Air 07/09/16 21:39 148 126/80 07/09/16 18:42 97.0 115 19 162/92 99 Room Air 07/09/16 16:44 111 174/109 07/09/16 15:37 97.0 126 27 172/116 99 Room Air 07/09/16 14:50 97.2 78 16 164/90 98 Room Air Intake and Output 07/09/16 07/10/16 19:00 07:00 Intake Total 52.254 ml Output Total 700 ml Balance -647.746 ml Intake IV Total 52.254 ml Output Urine Total 700 ml Laboratory Tests Test 07/09/16 16:30 07/09/16 16:31 07/09/16 17:18 07/10/16 05:25 Prothrombin Time 12.0 SEC (9.30-11.50) H 14.0 SEC (9.30-11.50) H Prothromb Time International Ratio 1.2 (0.9-1.1) H 1.4 (0.9-1.1) H Activated Partial Thromboplast Time 34 SEC (23-33) H 50 SEC (23-33) H White Blood Count 6.8 K/UL (4.8-10.8) 9.6 K/UL (4.8-10.8) Red Blood Count 5.41 M/UL (4.20-5.40) H 4.71 M/UL (4.20-5.40) Hemoglobin 16.9 G/DL (12.0-16.0) H 14.7 G/DL (12.0-16.0) Hematocrit 52.7 % (37.0-47.0) H 45.4 % (37.0-47.0) Mean Corpuscular Volume 98 FL (80-99) 96 FL (80-99) Mean Corpuscular Hemoglobin 31.3 PG (27.0-31.0) H 31.3 PG (27.0-31.0) H Mean Corpuscular Hemoglobin Concent 32.1 G/DL (32.0-36.0) 32.5 G/DL (32.0-36.0) Red Cell Distribution Width 12.4 % (11.6-14.8) 13.1 % (11.6-14.8) Platelet Count 193 K/UL (150-450) 215 K/UL (150-450) Mean Platelet Volume 9.1 FL (6.5-10.1) 9.8 FL (6.5-10.1) Neutrophils (%) (Auto) % (45.0-75.0) 68.3 % (45.0-75.0) Lymphocytes (%) (Auto) % (20.0-45.0) 17.2 % (20.0-45.0) L Monocytes (%) (Auto) % (1.0-10.0) 13.5 % (1.0-10.0) H Eosinophils (%) (Auto) % (0.0-3.0) 0.2 % (0.0-3.0) Basophils (%) (Auto) % (0.0-2.0) 0.7 % (0.0-2.0) Differential Total Cells Counted 100 Neutrophils % (Manual) 87 % (45-75) H Lymphocytes % (Manual) 9 % (20-45) L Monocytes % (Manual) 4 % (1-10) Eosinophils % (Manual) 0 % (0-3) Basophils % (Manual) 0 % (0-2) Band Neutrophils 0 % (0-8) Platelet Estimate Adequate Platelet Morphology Normal Red Blood Cell Morphology Normal Sodium Level 132 mEQ/L (135-145) L 139 mEQ/L (135-145) Potassium Level 4.3 mEQ/L (3.4-4.9) 4.6 mEQ/L (3.4-4.9) Chloride Level 97 mEQ/L (98-107) L 93 mEQ/L (98-107) L Carbon Dioxide Level 24 mEQ/L (20-30) 19 mEQ/L (20-30) L Anion Gap 11 (5-15) 27 (5-15) H Blood Urea Nitrogen 21 mg/dL (7-23) 30 mg/dL (7-23) H Creatinine 1.0 mg/dL (0.5-0.9) H 1.7 mg/dL (0.5-0.9) #H Estimat Glomerular Filtration Rate mL/min (>60) mL/min (>60) Glucose Level 128 mg/dL (74-106) H 102 mg/dL (74-106) Calcium Level 11.5 mg/dL (8.6-10.2) H 11.0 mg/dL (8.6-10.2) H Total Bilirubin 1.6 mg/dL (0.0-1.2) H 1.3 mg/dL (0.0-1.2) H Direct Bilirubin 0.8 mg/dL (0.1-0.3) H 0.5 mg/dL (0.1-0.3) H Aspartate Amino Transf (AST/SGOT) 46 U/L (5-40) H 46 U/L (5-40) H Alanine Aminotransferase (ALT/SGPT) 26 U/L (3-33) 22 U/L (3-33) Alkaline Phosphatase 139 U/L (35-104) H 107 U/L (35-104) H Total Creatine Kinase 40 U/L (26-140) Creatine Kinase MB < 1.5 ng/mL (< 3.8) Creatine Kinase MB Relative Index Troponin I < 0.30 ng/mL (<=0.30) Total Protein 9.3 g/dL (6.6-8.7) H 7.4 g/dL (6.6-8.7) Albumin 4.6 g/dL (3.5-5.2) 4.1 g/dL (3.5-5.2) Globulin 4.7 g/dL 3.3 g/dL Albumin/Globulin Ratio 0.9 (1.0-2.7) L 1.2 (1.0-2.7) Urine Color Yellow Urine Appearance Clear Urine pH 5 (4.5-8.0) Urine Specific [place] 1.020 (1.005-1.035) Urine Protein 1+ (NEGATIVE) H Urine Glucose (UA) Negative (NEGATIVE) Urine Ketones 3+ (NEGATIVE) H Urine Occult Blood 1+ (NEGATIVE) H Urine Nitrite Positive (NEGATIVE) H Urine Bilirubin Negative (NEGATIVE) Urine Urobilinogen 4 MG/DL (0.0-1.0) H Urine Leukocyte Esterase 2+ (NEGATIVE) H Urine RBC 2-4 /HPF (0 - 2) H Urine WBC 5-10 /HPF (0 - 2) H Urine Squamous Epithelial Cells Few /LPF (NONE/OCC) Urine Bacteria Many /HPF (NONE) H Test 07/10/16 11:00 Activated Partial Thromboplast Time 91 SEC (23-33) H Microbiology Date/Time Source Procedure Growth Status 07/09/16 17:18 Urine,Clean Catch Urine Culture - Preliminary Gram Negative Jacob Resulted SELENE CRUZ Jul 10, 2016 13:48
[2016-07-10 15:07] LABS: ALANINE AMINOTRANSFERASE 22 U/L (3-33); ANION GAP 18 (5-15); ASPARTATE AMINO TRANSFERASE 36 U/L (5-40); CALCIUM 11.1 mg/dL (8.6-10.2); CARBON DIOXIDE 27 mEQ/L (20-30); CHLORIDE 94 mEQ/L (98-107); CREATININE 2.2 mg/dL (0.5-0.9); HEMOLYSIS 8; MAGNESIUM 1.7 mg/dL (1.7-2.5); PHOSPHORUS 3.1 mg/dL (2.5-4.8); POTASSIUM 3.8 mEQ/L (3.4-4.9); SODIUM 139 mEQ/L (135-145); TOTAL PROTEIN 7.8 g/dL (6.6-8.7); URIC ACID 7.2 mg/dL (3.0-7.5)
[2016-07-10 15:19] LABS: FREE T3 1.9 pg/mL (2.3-4.2)
[2016-07-10 15:29] LABS: BILIRUBIN,DIRECT 0.7 mg/dL (0.1-0.3)
[2016-07-10 16:34] VITALS: BP 109/60
--- NOTE | 2016-07-10 18:02 | Internal Med Progress Note ---
Subjective Physician Name Darvin Farah Attending Physician Darvin Farah MD Current Medications Medications (Trade) Dose Ordered Sig/Gt Route PRN Reason Start Time Stop Time Status Last Admin Dose Admin Acetaminophen 650 mg 650 mg Q4H PRN ORAL fever 07/09/16 20:45 08/08/16 20:44 Al Hydroxide/Mg Hydroxide (Mylanta II) 30 ml Q6H PRN ORAL dyspepsia 07/09/16 20:45 08/08/16 20:44 Allopurinol (Allopurinol) 300 mg DAILY ORAL 07/10/16 09:00 08/09/16 08:59 Benazepril HCl (Lotensin) 20 mg DAILY ORAL 07/11/16 09:00 08/10/16 08:59 Dextrose (Dextrose 50%) STAT PRN IV Hypoglycemia 07/09/16 20:45 08/08/16 20:44 Diltiazem HCl (Cardizem) 10 mg Q1H PRN IV HR>120 07/10/16 08:00 08/09/16 07:59 07/10/16 12:53 Diltiazem HCl (Cardizem) 30 mg EVERY 8 HOURS ORAL 07/10/16 14:00 08/09/16 13:59 07/10/16 14:09 Heparin Sodium/ Dextrose (Heparin) 500 ml @ 26.127 mls/ hr adjust per protocol IV 07/10/16 04:30 08/09/16 04:29 07/10/16 04:51 Levothyroxine Sodium (Synthroid) 125 mcg ACBREAKFAST ORAL 07/10/16 06:30 08/09/16 06:29 Nitroglycerin (Ntg) 0.4 mg Q5M X 3 DOSES PRN SL Prn Chest Pain 07/09/16 20:45 08/08/16 20:44 Ondansetron HCl (Zofran) 4 mg Q6H PRN IVP Nausea & Vomiting 07/09/16 20:45 08/08/16 20:44 Polyethylene Glycol (Miralax) 17 gm HSPRN PRN ORAL Constipation 07/09/16 20:45 08/08/16 20:44 Temazepam (Restoril) 15 mg HSPRN PRN ORAL Insomnia 07/09/16 20:45 07/16/16 20:44 Allergies: Coded Allergies: CODEINE (Verified Allergy, Intermediate, 07/09/16) MORPHINE (Verified Allergy, Intermediate, 07/09/16) PENICILLINS (Verified Allergy, Intermediate, 07/09/16) Subjective awake, alert, responsive, feeling weak Objective Last Vital Signs Date Time Temp Pulse Resp B/P Pulse Ox O2 Delivery O2 Flow Rate FiO2 07/10/16 16:34 97.2 123 20 109/60 95 Room Air Laboratory Tests Test 07/10/16 05:25 07/10/16 11:00 07/10/16 14:40 White Blood Count 9.6 K/UL (4.8-10.8) Red Blood Count 4.71 M/UL (4.20-5.40) Hemoglobin 14.7 G/DL (12.0-16.0) Hematocrit 45.4 % (37.0-47.0) Mean Corpuscular Volume 96 FL (80-99) Mean Corpuscular Hemoglobin 31.3 PG (27.0-31.0) H Mean Corpuscular Hemoglobin Concent 32.5 G/DL (32.0-36.0) Red Cell Distribution Width 13.1 % (11.6-14.8) Platelet Count 215 K/UL (150-450) Mean Platelet Volume 9.8 FL (6.5-10.1) Neutrophils (%) (Auto) 68.3 % (45.0-75.0) Lymphocytes (%) (Auto) 17.2 % (20.0-45.0) L Monocytes (%) (Auto) 13.5 % (1.0-10.0) H Eosinophils (%) (Auto) 0.2 % (0.0-3.0) Basophils (%) (Auto) 0.7 % (0.0-2.0) Prothrombin Time 14.0 SEC (9.30-11.50) H Prothromb Time International Ratio 1.4 (0.9-1.1) H Activated Partial Thromboplast Time 50 SEC (23-33) H 91 SEC (23-33) H Sodium Level 139 mEQ/L (135-145) 139 mEQ/L (135-145) Potassium Level 4.6 mEQ/L (3.4-4.9) 3.8 mEQ/L (3.4-4.9) Chloride Level 93 mEQ/L (98-107) L 94 mEQ/L (98-107) L Carbon Dioxide Level 19 mEQ/L (20-30) L 27 mEQ/L (20-30) Anion Gap 27 (5-15) H 18 (5-15) H Blood Urea Nitrogen 30 mg/dL (7-23) H 38 mg/dL (7-23) H Creatinine 1.7 mg/dL (0.5-0.9) #H 2.2 mg/dL (0.5-0.9) H Estimat Glomerular Filtration Rate mL/min (>60) mL/min (>60) Glucose Level 102 mg/dL (74-106) 115 mg/dL (74-106) H Calcium Level 11.0 mg/dL (8.6-10.2) H 11.1 mg/dL (8.6-10.2) H Total Bilirubin 1.3 mg/dL (0.0-1.2) H 1.3 mg/dL (0.0-1.2) H Direct Bilirubin 0.5 mg/dL (0.1-0.3) H 0.7 mg/dL (0.1-0.3) H Aspartate Amino Transf (AST/SGOT) 46 U/L (5-40) H 36 U/L (5-40) Alanine Aminotransferase (ALT/SGPT) 22 U/L (3-33) 22 U/L (3-33) Alkaline Phosphatase 107 U/L (35-104) H 103 U/L (35-104) Total Protein 7.4 g/dL (6.6-8.7) 7.8 g/dL (6.6-8.7) Albumin 4.1 g/dL (3.5-5.2) 4.0 g/dL (3.5-5.2) Globulin 3.3 g/dL 3.8 g/dL Albumin/Globulin Ratio 1.2 (1.0-2.7) 1.0 (1.0-2.7) Plasma/Serum Osmolality Pending Uric Acid 7.2 mg/dL (3.0-7.5) Phosphorus Level 3.1 mg/dL (2.5-4.8) Magnesium Level 1.7 mg/dL (1.7-2.5) Total Creatine Kinase 21 U/L (26-140) L Thyroid Stimulating Hormone (TSH) 0.740 uIU/mL (0.300-4.500) Free Thyroxine 2.18 ng/dL (0.86-1.85) H Free Triiodothyronine 1.9 pg/mL (2.3-4.2) L Cortisol Pending Microbiology Date/Time Source Procedure Growth Status 07/09/16 17:18 Urine,Clean Catch Urine Culture - Preliminary Gram Negative Jacob Resulted Intake and Output 07/09/16 07/10/16 19:00 07:00 Intake Total 52.254 ml Output Total 700 ml Balance -647.746 ml IV Total 52.254 ml Output Urine Total 700 ml Objective GENERAL: The patient is awake, responsive, and in no acute distress. HEENT: Pupils are equal and reactive to light on the right eye. Left eye is opacified and blindness. NECK: Supple. No JVD. LUNGS: fair bilateral air entry. No wheezing or rales. HEART: S1 and S2 RR. Distant heart sounds. No Murmur. ABDOMEN: Soft, nondistended, and morbidly obese. EXTREMITY: +2 edema of bilateral lower extremity as well as hyperpigmentation and venous stasis of bilateral lower extremities. GENITOURINARY: Bullard catheter was noted with a dark yellow urine. Assessment/Plan Assessment/Plan ASSESSMENT: 1. Lower abdominal pain most likely secondary to the GNR urinary tract infection. 2. Left eye blindness. 3. Diabetes type 2. 4. Atrial fibrillation with rapid ventricular rate. 5. Hypertension. 6. Functional quadriplegia. 7. Decubitus ulcer. 8. Bilateral lower extremity edema with a deep venous thrombosis. 9. Venous stasis of bilateral lower extremities with hyperpigmentation. 10. Cognitive communication deficit. 11. Severe dehydration. 12. Acute kidney injury / ATN. 13. Hypovolemia 14. Hyponatremia PLAN: in telemetry. Monitor laboratory and cultures. Broad-spectrum antibiotics with Rocephin on heparin drip. Cardiology consultation with Dr. David Watts Pulmonary consultation with Dr. Calderón Nephrology consultation with Dr. Dusty Henry ID consult with Dr. Caldera IVF @ 100 cc/hr Renal US Full Code PCN allergy Darvin Farah MD Jul 10, 2016 18:02
[2016-07-10 20:00] VITALS: BP 102/64
--- NOTE | 2016-07-10 21:16 | Infectious Diseases Prog Note ---
Assessment/Plan Assessment/Plan Full consult dictated: A) 1) gram neg uti 2) complicated uti 3) edema, af 4) nikkie, dehydration P) 1) rocephin 2) check urine culture 3) continue treatment per primary and consultants 4) thank you Subjective Allergies: Coded Allergies: CODEINE (Verified Allergy, Intermediate, 07/09/16) MORPHINE (Verified Allergy, Intermediate, 07/09/16) PENICILLINS (Verified Allergy, Intermediate, 07/09/16) Objective Vital Signs Last 24 Hour Vital Signs Date Time Temp Pulse Resp B/P Pulse Ox O2 Delivery O2 Flow Rate FiO2 07/10/16 16:34 97.2 123 20 109/60 95 Room Air 07/10/16 14:09 108 116/62 07/10/16 12:53 142 112/64 07/10/16 11:59 97.7 125 20 112/64 99 Room Air 07/10/16 11:56 126 07/10/16 09:28 156 105/56 07/10/16 08:43 105/56 07/10/16 08:04 125 07/10/16 07:53 97.0 138 18 105/56 100 Room Air 07/10/16 04:00 97.9 130 20 132/61 100 Room Air 07/10/16 04:00 160 07/10/16 00:00 97.9 99 20 126/82 100 Room Air 07/10/16 00:00 129 07/09/16 22:26 97.7 85 18 110/69 98 Room Air 07/09/16 21:54 97.0 115 19 126/80 99 Room Air 07/09/16 21:53 97.0 126 18 126/80 99 Room Air 07/09/16 21:39 148 126/80 Height (Feet): 5 Height (Inches): 5.00 Weight (Pounds): 160 Microbiology Date/Time Source Procedure Growth Status 07/09/16 17:18 Urine,Clean Catch Urine Culture - Preliminary Gram Negative Jacob Resulted Laboratory Tests Test 07/10/16 05:25 07/10/16 11:00 07/10/16 14:40 White Blood Count 9.6 K/UL (4.8-10.8) Red Blood Count 4.71 M/UL (4.20-5.40) Hemoglobin 14.7 G/DL (12.0-16.0) Hematocrit 45.4 % (37.0-47.0) Mean Corpuscular Volume 96 FL (80-99) Mean Corpuscular Hemoglobin 31.3 PG (27.0-31.0) H Mean Corpuscular Hemoglobin Concent 32.5 G/DL (32.0-36.0) Red Cell Distribution Width 13.1 % (11.6-14.8) Platelet Count 215 K/UL (150-450) Mean Platelet Volume 9.8 FL (6.5-10.1) Neutrophils (%) (Auto) 68.3 % (45.0-75.0) Lymphocytes (%) (Auto) 17.2 % (20.0-45.0) L Monocytes (%) (Auto) 13.5 % (1.0-10.0) H Eosinophils (%) (Auto) 0.2 % (0.0-3.0) Basophils (%) (Auto) 0.7 % (0.0-2.0) Prothrombin Time 14.0 SEC (9.30-11.50) H Prothromb Time International Ratio 1.4 (0.9-1.1) H Activated Partial Thromboplast Time 50 SEC (23-33) H 91 SEC (23-33) H Sodium Level 139 mEQ/L (135-145) 139 mEQ/L (135-145) Potassium Level 4.6 mEQ/L (3.4-4.9) 3.8 mEQ/L (3.4-4.9) Chloride Level 93 mEQ/L (98-107) L 94 mEQ/L (98-107) L Carbon Dioxide Level 19 mEQ/L (20-30) L 27 mEQ/L (20-30) Anion Gap 27 (5-15) H 18 (5-15) H Blood Urea Nitrogen 30 mg/dL (7-23) H 38 mg/dL (7-23) H Creatinine 1.7 mg/dL (0.5-0.9) #H 2.2 mg/dL (0.5-0.9) H Estimat Glomerular Filtration Rate mL/min (>60) mL/min (>60) Glucose Level 102 mg/dL (74-106) 115 mg/dL (74-106) H Calcium Level 11.0 mg/dL (8.6-10.2) H 11.1 mg/dL (8.6-10.2) H Total Bilirubin 1.3 mg/dL (0.0-1.2) H 1.3 mg/dL (0.0-1.2) H Direct Bilirubin 0.5 mg/dL (0.1-0.3) H 0.7 mg/dL (0.1-0.3) H Aspartate Amino Transf (AST/SGOT) 46 U/L (5-40) H 36 U/L (5-40) Alanine Aminotransferase (ALT/SGPT) 22 U/L (3-33) 22 U/L (3-33) Alkaline Phosphatase 107 U/L (35-104) H 103 U/L (35-104) Total Protein 7.4 g/dL (6.6-8.7) 7.8 g/dL (6.6-8.7) Albumin 4.1 g/dL (3.5-5.2) 4.0 g/dL (3.5-5.2) Globulin 3.3 g/dL 3.8 g/dL Albumin/Globulin Ratio 1.2 (1.0-2.7) 1.0 (1.0-2.7) Plasma/Serum Osmolality Pending Uric Acid 7.2 mg/dL (3.0-7.5) Phosphorus Level 3.1 mg/dL (2.5-4.8) Magnesium Level 1.7 mg/dL (1.7-2.5) Total Creatine Kinase 21 U/L (26-140) L Thyroid Stimulating Hormone (TSH) 0.740 uIU/mL (0.300-4.500) Free Thyroxine 2.18 ng/dL (0.86-1.85) H Free Triiodothyronine 1.9 pg/mL (2.3-4.2) L Cortisol Pending Current Medications Medications (Trade) Dose Ordered Sig/Gt Route PRN Reason Start Time Stop Time Status Last Admin Dose Admin Acetaminophen 650 mg 650 mg Q4H PRN ORAL fever 07/09/16 20:45 08/08/16 20:44 Al Hydroxide/Mg Hydroxide (Mylanta II) 30 ml Q6H PRN ORAL dyspepsia 07/09/16 20:45 08/08/16 20:44 Ceftriaxone Sodium/Dextrose (Rocephin/D5W) 55 ml @ 110 mls/hr Q24H IVPB 07/10/16 20:00 07/17/16 19:59 Dextrose (Dextrose 50%) STAT PRN IV Hypoglycemia 07/09/16 20:45 08/08/16 20:44 Diltiazem HCl (Cardizem) 10 mg Q1H PRN IV HR>120 07/10/16 08:00 08/09/16 07:59 07/10/16 12:53 Diltiazem HCl 30 mg 30 mg EVERY 8 HOURS ORAL 07/10/16 14:00 08/09/16 13:59 07/10/16 14:09 Heparin Sodium/ Dextrose (Heparin) 500 ml @ 26.127 mls/ hr adjust per protocol IV 07/10/16 04:30 08/09/16 04:29 07/10/16 04:51 Levothyroxine Sodium (Synthroid) 125 mcg ACBREAKFAST ORAL 07/10/16 06:30 08/09/16 06:29 Nitroglycerin (Ntg) 0.4 mg Q5M X 3 DOSES PRN SL Prn Chest Pain 07/09/16 20:45 08/08/16 20:44 Ondansetron HCl (Zofran) 4 mg Q6H PRN IVP Nausea & Vomiting 07/09/16 20:45 08/08/16 20:44 Polyethylene Glycol (Miralax) 17 gm HSPRN PRN ORAL Constipation 07/09/16 20:45 08/08/16 20:44 Sodium Chloride 1,000 ml @ 100 mls/hr Q10H IV 07/10/16 18:15 08/09/16 18:14 Temazepam (Restoril) 15 mg HSPRN PRN ORAL Insomnia 07/09/16 20:45 07/16/16 20:44 WISAM LAURA Jul 10, 2016 21:16
[2016-07-10] MEDS: cefTRIAXone 1 GM in D5W 55 ML IVPB SCH (21:20)
[2016-07-11] VITALS (7 sets, daily range): BP systolic 104–119; BP diastolic 60–70
[2016-07-11] MEDS ORDERED: Ibuprofen Susp 100mg/5ml ORAL PRN
[2016-07-11 00:51] LABS: APPEARANCE,URINE VERY CLOUDY; KETONES,URINE 1+ (NEGATIVE); LEUKOCYTE ESTERASE ,URINE 3+ (NEGATIVE); NITRITE,URINE POSITIVE (NEGATIVE); PH,URINE 5 (4.5-8.0); PROTEIN,URINE 2+ (NEGATIVE); UROBILINOGEN,URINE 8 MG/DL (0.0-1.0)
[2016-07-11 01:39] LABS: BACTERIA,URINE MANY /HPF; RBC,URINE 15-20 /HPF (0 - 2); SQUAMOUS EPITHELIAL CELL,UR MODERATE /LPF (NONE/OCC); WBC,URINE TNTC /HPF (0 - 2)
[2016-07-11] MEDS: Heparin 25,000u/D5W 500ml 500 ML IV SCH ×4 (01:39→22:56)
--- NOTE | 2016-07-11 01:59 | History and Physical Report ---
DATE OF ADMISSION: 07/09/2016 CHIEF COMPLAINT: Flank pain x1 day. HISTORY OF PRESENT ILLNESS: This is an 86-year-old female with a past medical history significant for venous insufficiency with a chronic edema, hypothyroidism, blindness of the left eye, history of hypertension, functional quadriplegia, gastroesophageal reflux, history of urine retention, cognitive communication deficit, anemia, heart failure, allergic rhinitis, history of pressure ulcer in the right heel stage I, pressure ulcer in the left heel stage III, chronic gout, urinary tract infection, difficulty ambulating, dysphagia, insomnia, sepsis, diabetes type 2, morbid obesity, history of atherosclerotic heart disease, and dermatitis, who has presented to the hospital from nursing facility, [facility] after was noted to be complaining of flank pain. The patient was recently admitted to [facility] due to the recurrent cellulitis and edema of bilateral lower extremity. Shortly after initial evaluation in the emergency room, the patient was noted to have the pain bilaterally, 2/10 intensity, throbbing, nonradiating, and no aggressive or relieving factor. Denies any chest pain or shortness of breath. The patient is mostly bedbound and non-ambulatory. Shortly after initial evaluation in the emergency room, the patient was admitted to the hospital with atrial fibrillation with rapid ventricular rate as well as DVT and a urinary tract infection. PAST MEDICAL HISTORY/PAST SURGICAL HISTORY: As above. History of hypothyroidism, chronic lymphocytic edema, functional quadriplegia, history of cellulitis of the lower extremities, left eye blindness, hypertension, diabetes type 2, dyslipidemia, atherosclerotic heart disease, decubitus ulcer, and morbid obesity. History is very limited secondary to the patient's status. History is mostly taken from the ER doctor, as well as jail chart. MEDICATIONS: Medications at home, please review the medication list. ALLERGIES: Codeine, morphine, and penicillin. SOCIAL HISTORY: [facility] resident. No smoking, alcohol, or drugs. FAMILY HISTORY: Noncontributory. REVIEW OF SYSTEMS: Very limited. Mostly as above. Denies any dysuria or frequency. Complained about abdominal discomfort. Denies any hemoptysis. Complained about loss of consciousness. Denies any bowel loss of control. PHYSICAL EXAMINATION: VITAL SIGNS: On admission, temperature 97.2 degrees, pulse of 78, respirations 16, and blood pressure 164/90. GENERAL: The patient is awake, responsive, and in no acute distress. HEENT: Pupils are equal and reactive to light on the right eye. Left eye is opacified and blindness. NECK: Supple. No JVD. LUNGS: Good air entry. No wheezing or rales. HEART: S1 and S2. Distant heart sounds. No gallops. ABDOMEN: Soft, nondistended, and morbidly obese. EXTREMITY: He has +2 edema of bilateral lower extremity as well as hyperpigmentation and venous stasis of bilateral lower extremities. GENITOURINARY: Bullard catheter was noted with a dark yellow urine. LABORATORY DATA: On admission from the ER, significant for WBC of 6.8, hemoglobin 16, hematocrit of 52, and platelet is 193,000. Sodium 132, potassium 4.3, chloride 97, bicarbonate is 24, BUN 21, and creatinine 1.0. Glucose is 128. Calcium is 11.5. Total bilirubin of 1.6. Direct bilirubin of 0.8. AST of 46, ALT of 26, and alkaline phosphatase of 139. Total protein is 9.3. The patient's PT of 12, INR 1.2, and PTT of 34. Urinalysis is +1 protein, +3 ketones, positive nitrate, 5 to 10 WBCs, and many bacteria. Chest x-ray, no acute distress. ASSESSMENT: 1. Lower abdominal pain most likely secondary to the urinary tract infection. 2. Left eye blindness. 3. Diabetes type 2. 4. Atrial fibrillation with rapid ventricular rate. 5. Hypertension. 6. Functional quadriplegia. 7. Decubitus ulcer. 8. Bilateral lower extremity edema with a deep venous thrombosis. 9. Venous stasis of bilateral lower extremities with hyperpigmentation. 10. Cognitive communication deficit. 11. Severe dehydration. 12. Acute kidney injury. PLAN: Admit the patient to telemetry. We will follow up laboratory. We will continue jail medications, IV hydration, broad-spectrum antibiotics, and we will start pressure heparin drip. Cardiology consultation with Dr. David Watts and we will follow up with the Pulmonary consultation with Dr. Calderón and Nephrology consultation with Dr. Dusty Henry and follow up with urine cultures and monitor laboratory as well as culture. Darvin Farah M.D. DR: ARMAND JOB#: [id number] CC:
--- NOTE | 2016-07-11 04:19 | Consultation ---
DATE OF CONSULTATION: 07/10/2016 NOTE: "POOR AUDIO QUALITY" CARDIOLOGY CONSULTATION CONSULTING PHYSICIAN: David Watts M.D. ATTENDING PHYSICIAN: Darvin Farah M.D. REFERRING PHYSICIAN: Glenna Calderón M.D. REASON FOR REFERRAL: Atrial fibrillation. HISTORY OF PRESENT ILLNESS: This is an elderly female, who is a resident of facility. The patient is transferred from the facility at [facility] for evaluation of headache, right leg pain, and was noted to have elevated blood pressure. She tells me she has had pain in her legs that radiates all the way up throat and she has had some nausea and vomiting and was not feeling well, that is why presented to the emergency room. She does not have any chest pain. No PND. No orthopnea. She uses one pillow. There are no palpitations. No dizziness or lightheadedness on standing. She has not been liking the food that she has been getting at the facility because of the consistency of not to her liking. PAST MEDICAL HISTORY: Positive for chronic venous insufficiency, hypothyroidism, blindness in the left eye, hypertension, functional quadriplegia, glaucoma, gastroesophageal reflux disease, urinary retention, cognitive decline, anemia, atrial fibrillation, heart failure, allergic rhinitis, insomnia, sepsis, type 2 diabetes mellitus, encephalopathy, coronary artery disease, dermatitis as I understand it here. She has had history of severe hypothyroidism according to the chart with chronic lymphedema as well. MEDICATIONS: Her medications at the convalescent facility are listed as Tylenol, albuterol, allopurinol, Eliquis, vitamin C, baclofen, benazepril 40 mg daily, colchicine, lactulose, Lasix, Synthroid 125, melatonin, Singulair, multivitamins, omeprazole, potassium, prednisolone eyedrops, Reglan, senna, and vitamin D. Her medications that she is getting an intravenous heparin drip. She is on Levaquin. She is on allopurinol, benazepril, diltiazem. She has received some boluses here and she did receive Lovenox in the emergency room. She is on albuterol, Atrovent, and Synthroid 125 mcg. ALLERGIES: She states she is allergic to codeine and morphine. SOCIAL HISTORY: She used to smoke many many years ago, but not since the age of 18. She lives at a facility as mentioned. No alcohol. REVIEW OF SYSTEMS: Gastrointestinal: She has chronic constipation. Genitourinary: She has some blood in the urine. Pulmonary: She has coughing and wheezing at times. Constitutional: Negative. Neurologic: She is basically bedridden. PHYSICAL EXAMINATION: GENERAL: Shows her to be an elderly female, in no respiratory distress. VITAL SIGNS: Her blood pressure is anywhere between 105/56 to 112/64, heart rate is in the 125 to 142 range, and temperature 97.7 degrees. HEENT: Unremarkable. She has opacification of her left cornea. NECK: Supple. No jugular venous distention. LUNGS: Clear to auscultation and percussion. CARDIAC: S1 is normal. S2 is normal. Irregularly irregular. No RV lift, heaves, thrills, or gallops noted. ABDOMEN: Soft and nontender. Positive bowel sounds. EXTREMITIES: Chronic venous stasis changes and edema was noted of the lower extremities. LABORATORY AND DIAGNOSTIC DATA: Venous duplex study scan seemed to indicate that she has DVT in her left common femoral to superficial femoral veins, the remainder of the system is intact. EKG shows atrial fibrillation, rapid ventricular response with heart rates in the 120s, some nonspecific ST and T-wave abnormalities and her blood tests showed white count of 9.6, hemoglobin 14.7, platelet count of 215,000. Sodium 139, potassium 4.3, chloride 92, bicarbonate of 19, BUN of 30, creatinine 1.7, glucose of 102, and calcium 11. AST and ALT are normal. Troponin less than 0.03. INR is 1.4 and PTT of 50, and now PTT is 91. Her urine is gram-negative rods. ASSESSMENT AND PLAN: Atrial fibrillation, likely chronic or permanent based on history, not sure if it is actually permanent or chronic recurrent. She is in atrial fibrillation and ventricular response is somewhat rapid. She does have history of congestive heart failure. She should have an echocardiogram. I would prefer that we switch her blood pressure medications from SINTIA inhibitors to Cardizem for heart rate and blood pressure control if and only if she does not have any significant cardiomyopathy. If she does have cardiomyopathy, then probably a combination of medications may need to be used. She is on anticoagulation with heparin. She obviously has failed Eliquis and she may need to be switched to Coumadin for anticoagulation in light of the failure. Other agents may also be used, oral anticoagulants; however, I feel that with the failure of Eliquis, the next step would be to use Coumadin. David Watts M.D. DR: Yareli JOB#: [id number] CC:
[2016-07-11 05:04] LABS: EOSINOPHILS % (AUTO) 0.3 % (0.0-3.0); LYMPHOCYTES % (AUTO) 29.3 % (20.0-45.0); MEAN CORPUSCULAR HEMOGLOBIN 31.1 PG (27.0-31.0); MEAN CORPUSCULAR VOLUME 97 FL (80-99); MEAN PLATELET VOLUME 10.8 FL (6.5-10.1); MONOCYTES % (AUTO) 14.2 % (1.0-10.0); NEUTROPHILS % (AUTO) 55.3 % (45.0-75.0); PLATELET COUNT 174 K/UL (150-450); RED BLOOD COUNT 4.31 M/UL (4.20-5.40); RED CELL DISTRIBUTION WIDTH 12.9 % (11.6-14.8)
[2016-07-11 06:13] LABS: ERYTHROCYTE SEDIMENTATION RATE 38 MM/HR (0-42)
[2016-07-11] MEDS: Levothyroxine 125mcg tab ORAL SCH (06:31)
[2016-07-11 07:25] LABS: ALANINE AMINOTRANSFERASE 26 U/L (3-33); ALBUMIN/GLOBULIN RATIO 0.9 (1.0-2.7); ANION GAP 19 (5-15); ASPARTATE AMINO TRANSFERASE 42 U/L (5-40); CALCIUM 10.7 mg/dL (8.6-10.2); CARBON DIOXIDE 25 mEQ/L (20-30); CHLORIDE 95 mEQ/L (98-107); CRP QUANT 0.3 mg/dL (< 0.5); HEMOLYSIS 7; POTASSIUM 3.6 mEQ/L (3.4-4.9); SODIUM 139 mEQ/L (135-145); TOTAL PROTEIN 7.5 g/dL (6.6-8.7)
[2016-07-11 08:24] LABS: ICTOTEST NEGATIVE
[2016-07-11] MEDS ORDERED: Ketorolac 30mg Inj IV PRN (09:00)
[2016-07-11] MEDS ORDERED: Benazepril 10mg tab ORAL SCH (09:00)
--- NOTE | 2016-07-11 11:11 | Consultation ---
Consult Note Consult Note asked to eval for high BUN and Cr 86-year-old female presents ED her evaluation. Per EMS patient was complaining of flank pain x1 day. Pain is bilateral. 06/11. Throbbing. Nonradiating. No aggravating or relieving factors. Denies chest pain or shortness of breath. Patient is bedbound. Nonambulatory. No other aggravating or relieving factors. Denies any other associated symptoms Coded Allergies: CODEINE (Verified Allergy, Intermediate, 07/09/16) MORPHINE (Verified Allergy, Intermediate, 07/09/16) PENICILLINS (Verified Allergy, Intermediate, 07/09/16) Past Medical History: HTN, AFib Past Surgical History: none Hx Hypertension: Yes Assessment/Plan Renal failure, likely acute on chronic factors; DM , HTN , ? Medications ( NSAIDs) then superimposed dehydration - Lower abdominal pain most likely secondary to the urinary tract infection. - Left eye blindness. - Diabetes type 2. - Atrial fibrillation with rapid ventricular rate. - Hypertension. - Functional quadriplegia. - Decubitus ulcer. - Bilateral lower extremity edema with a deep venous thrombosis. - Venous stasis of bilateral lower extremities with hyperpigmentation. - Cognitive communication deficit. - HypoThyroidism Plan: Stop all NSAIDs urine studies- monitor renal parameters slow hydrate watch for CHF symptoms per orders YOGESH PERRY Jul 11, 2016 11:11
--- NOTE | 2016-07-11 13:56 | Cardiology Progress Note ---
Assessment/Plan Assessment/Plan afib (not clear if chronic recurrent or permananet ) tachy dvt acute depsite eliquis dm htn cad per report hypothyroid TR pulm htn hypercalcemia renal insuf agree with heparin likely will need to be e Coumadin due to failure of eliquis add cardizem for hr control echo prelim showed goo lv function but sig tr and pulm htn of mod degree bp is fine now on cardizem for hr control since lv function is fine i do not think she will need acei will used ccb for hr contorl cr i better calcium elevated may need burch if ionized ca elevated as well tele personally reviewed ekg noted repeat trop Subjective Cardiovascular: Denies: chest pain, lightheadedness Respiratory: Denies: shortness of breath Genitourinary: Denies: burning Subjective hurts all over her body Objective Last 24 Hour Vital Signs Date Time Temp Pulse Resp B/P Pulse Ox O2 Delivery O2 Flow Rate FiO2 07/11/16 11:58 91 07/11/16 11:38 97.0 101 20 108/69 97 Room Air 07/11/16 09:01 97.0 105 20 119/64 100 Room Air 07/11/16 08:04 94 07/11/16 08:00 97.0 105 20 119/64 100 Room Air 07/11/16 06:31 100 104/70 07/11/16 04:00 109 07/11/16 04:00 97.3 100 16 104/70 96 Room Air 07/11/16 00:00 97.9 119 16 116/62 100 Room Air 07/11/16 00:00 110 07/10/16 21:20 123 109/60 07/10/16 20:00 97.9 114 21 102/64 94 Room Air 07/10/16 16:34 97.2 123 20 109/60 95 Room Air 07/10/16 14:09 108 116/62 General Appearance: no apparent distress, alert Neck: supple Cardiovascular: irregularly irregular Respiratory/Chest: lungs clear, normal breath sounds Abdomen: normal bowel sounds, non tender, soft Extremities: moderate edema Intake and Output 07/10/16 07/11/16 19:00 07:00 Intake Total 269.016 ml 646.127 ml Output Total 100 ml 600 ml Balance 169.016 ml 46.127 ml Intake Oral 60 ml 120 ml IV Total 209.016 ml 526.127 ml Output Urine Total 100 ml 600 ml Laboratory Tests Test 07/10/16 14:35 07/10/16 14:40 07/11/16 04:15 07/11/16 11:45 Urine Color Brown Urine Appearance Very cloudy Urine pH 5 (4.5-8.0) Urine Specific [place] 1.025 (1.005-1.035) Urine Protein 2+ (NEGATIVE) H Urine Glucose (UA) Negative (NEGATIVE) Urine Ketones 1+ (NEGATIVE) H Urine Occult Blood 2+ (NEGATIVE) H Urine Nitrite Positive (NEGATIVE) H Urine Bilirubin 2+ (NEGATIVE) H Urine Ictotest Negative Urine Urobilinogen 8 MG/DL (0.0-1.0) H Urine Leukocyte Esterase 3+ (NEGATIVE) H Urine RBC 15-20 /HPF (0 - 2) H Urine WBC Tntc /HPF (0 - 2) H Urine Squamous Epithelial Cells Moderate /LPF (NONE/OCC) H Urine Bacteria Many /HPF (NONE) H Urine Eosinophils None seen Urine Osmolality Pending Urine Random Sodium 18 mmol/L 17 mmol/L Urine Random Chloride 30 mmol/L Urine Potassium Timed > 100 mmol/L Sodium Level 139 mEQ/L (135-145) 139 mEQ/L (135-145) Potassium Level 3.8 mEQ/L (3.4-4.9) 3.6 mEQ/L (3.4-4.9) Chloride Level 94 mEQ/L (98-107) L 95 mEQ/L (98-107) L Carbon Dioxide Level 27 mEQ/L (20-30) 25 mEQ/L (20-30) Anion Gap 18 (5-15) H 19 (5-15) H Blood Urea Nitrogen 38 mg/dL (7-23) H 41 mg/dL (7-23) H Creatinine 2.2 mg/dL (0.5-0.9) H 2.0 mg/dL (0.5-0.9) H Estimat Glomerular Filtration Rate mL/min (>60) mL/min (>60) Glucose Level 115 mg/dL (74-106) H 101 mg/dL (74-106) Plasma/Serum Osmolality Pending Uric Acid 7.2 mg/dL (3.0-7.5) Calcium Level 11.1 mg/dL (8.6-10.2) H 10.7 mg/dL (8.6-10.2) H Phosphorus Level 3.1 mg/dL (2.5-4.8) 3.0 mg/dL (2.5-4.8) Magnesium Level 1.7 mg/dL (1.7-2.5) Total Bilirubin 1.3 mg/dL (0.0-1.2) H 0.9 mg/dL (0.0-1.2) Direct Bilirubin 0.7 mg/dL (0.1-0.3) H Aspartate Amino Transf (AST/SGOT) 36 U/L (5-40) 42 U/L (5-40) H Alanine Aminotransferase (ALT/SGPT) 22 U/L (3-33) 26 U/L (3-33) Alkaline Phosphatase 103 U/L (35-104) 99 U/L (35-104) Total Creatine Kinase 21 U/L (26-140) L Total Protein 7.8 g/dL (6.6-8.7) 7.5 g/dL (6.6-8.7) Albumin 4.0 g/dL (3.5-5.2) 3.7 g/dL (3.5-5.2) Globulin 3.8 g/dL 3.8 g/dL Albumin/Globulin Ratio 1.0 (1.0-2.7) 0.9 (1.0-2.7) L Thyroid Stimulating Hormone (TSH) 0.740 uIU/mL (0.300-4.500) Free Thyroxine 2.18 ng/dL (0.86-1.85) H Free Triiodothyronine 1.9 pg/mL (2.3-4.2) L Cortisol Pending White Blood Count 11.0 K/UL (4.8-10.8) H Red Blood Count 4.31 M/UL (4.20-5.40) Hemoglobin 13.4 G/DL (12.0-16.0) Hematocrit 42.0 % (37.0-47.0) Mean Corpuscular Volume 97 FL (80-99) Mean Corpuscular Hemoglobin 31.1 PG (27.0-31.0) H Mean Corpuscular Hemoglobin Concent 32.0 G/DL (32.0-36.0) Red Cell Distribution Width 12.9 % (11.6-14.8) Platelet Count 174 K/UL (150-450) Mean Platelet Volume 10.8 FL (6.5-10.1) H Neutrophils (%) (Auto) 55.3 % (45.0-75.0) Lymphocytes (%) (Auto) 29.3 % (20.0-45.0) Monocytes (%) (Auto) 14.2 % (1.0-10.0) H Eosinophils (%) (Auto) 0.3 % (0.0-3.0) Basophils (%) (Auto) 1.0 % (0.0-2.0) Erythrocyte Sedimentation Rate 38 MM/HR (0-42) Activated Partial Thromboplast Time 112 SEC (23-33) H C-Reactive Protein, Quantitative 0.3 mg/dL (< 0.5) Test 07/11/16 12:15 Activated Partial Thromboplast Time 114 SEC (23-33) H Microbiology Date/Time Source Procedure Growth Status 07/09/16 17:54 Nasal Nares MRSA Culture - Final NO METHICILLIN RESISTANT STAPH AUREUS... Complete 07/09/16 17:18 Urine,Clean Catch Urine Culture - Preliminary Gram Negative Jacob Gram Negative Bacillus 2 Resulted SELENE CRUZ Jul 11, 2016 13:56
--- NOTE | 2016-07-11 18:57 | Wound Care Consultation ---
Wound Assessment Wound Assessment #1: Wound Present on Admission: Yes New Wound: No Status Change of Wound: No Wound Location Body Site Modif: mid Wound Location Body Site: sacral - left and right buttocks with multiple full thickness scar tissues Wound Type: pressure ulcer Tom Test: Does not Tom Wound Thickness: Full Thickness Percent of Wound [place]/Red: 100 Wound Drainage Amount: None Wound Drainage Odor: None/Absent Tissue Surrounding Wound: Intact Wound General Appearance: Asymptomatic Wound Assessment #2: Wound Number: #2 Wound Present on Admission: Yes New Wound: No Status Change of Wound: No Wound Location Body Site Modif: right, medial Wound Location Body Site: heel Wound Type: pressure ulcer Tom Test: Does not Tom Pressure Ulcer Stage: IV/unstageable Wound Thickness: Full Thickness Wound Length: 1.0 Wound Width: 0.5 Wound Depth: utd Percent of Wound [place]/Red: 100 Wound Drainage Amount: None Wound Drainage Odor: None/Absent Tissue Surrounding Wound: Indurated Wound General Appearance: Asymptomatic, Reddened Wound Comment #1 Sacral, left and right buttocks areas, with multiple full thickness scar tissues #2 Right medial unstageable small pressure ulcer Recommendation -Right medial heel pressure ulcer Cleanse with saline, pat dry, apply adaptic, cover with bordered gauze Q3 days and PRN soiled/dislodged -Keep clean and dry -Turn and reposition -Optimize nutrition -Low air loss overlay mattress -Offload both heels -Heel protector on both heels -Assess and f/u accordingly for any changes MADHAVI JOSEPH RN Jul 11, 2016 18:57
--- NOTE | 2016-07-11 20:36 | Internal Med Progress Note ---
Subjective Physician Name Darvin Farah Attending Physician Darvin Farah MD Current Medications Medications (Trade) Dose Ordered Sig/Gt Route PRN Reason Start Time Stop Time Status Last Admin Dose Admin Acetaminophen (Tylenol) 650 mg Q4H PRN ORAL fever 07/09/16 20:45 08/08/16 20:44 Ceftriaxone Sodium 1 gm/ Dextrose 55 ml @ 110 mls/hr Q24H IVPB 07/10/16 20:00 07/17/16 19:59 07/10/16 21:20 Dextrose (Dextrose 50%) STAT PRN IV Hypoglycemia 07/09/16 20:45 08/08/16 20:44 Diltiazem HCl (Cardizem) 10 mg Q1H PRN IV HR>120 07/10/16 08:00 08/09/16 07:59 07/10/16 12:53 Diltiazem HCl 30 mg 30 mg EVERY 8 HOURS ORAL 07/10/16 14:00 08/09/16 13:59 07/11/16 14:47 Heparin Sodium/ Dextrose (Heparin) 500 ml @ 17.418 mls/ hr adjust per protocol IV 07/11/16 07:15 08/10/16 07:14 07/11/16 15:00 Levothyroxine Sodium (Synthroid) 125 mcg ACBREAKFAST ORAL 07/10/16 06:30 08/09/16 06:29 07/11/16 06:31 Nitroglycerin (Ntg) 0.4 mg Q5M X 3 DOSES PRN SL Prn Chest Pain 07/09/16 20:45 08/08/16 20:44 Ondansetron HCl (Zofran) 4 mg Q6H PRN IVP Nausea & Vomiting 07/09/16 20:45 08/08/16 20:44 Polyethylene Glycol (Miralax) 17 gm HSPRN PRN ORAL Constipation 07/09/16 20:45 08/08/16 20:44 Sodium Chloride 1,000 ml @ 100 mls/hr Q10H IV 07/10/16 18:15 08/09/16 18:14 07/11/16 06:00 Temazepam (Restoril) 15 mg HSPRN PRN ORAL Insomnia 07/09/16 20:45 07/16/16 20:44 Vitamin A/Vitamin D (A & D Oint) 1 applic EVERY 12 HOURS TOPIC 07/11/16 21:00 08/10/16 20:59 Allergies: Coded Allergies: CODEINE (Verified Allergy, Intermediate, 07/09/16) MORPHINE (Verified Allergy, Intermediate, 07/09/16) PENICILLINS (Verified Allergy, Intermediate, 07/09/16) Subjective awake, alert, more responsive, feeling better Objective Last Vital Signs Date Time Temp Pulse Resp B/P Pulse Ox O2 Delivery O2 Flow Rate FiO2 07/11/16 16:00 97.1 98 20 117/68 97 Room Air Laboratory Tests Test 07/11/16 04:15 07/11/16 11:45 07/11/16 12:15 White Blood Count 11.0 K/UL (4.8-10.8) H Red Blood Count 4.31 M/UL (4.20-5.40) Hemoglobin 13.4 G/DL (12.0-16.0) Hematocrit 42.0 % (37.0-47.0) Mean Corpuscular Volume 97 FL (80-99) Mean Corpuscular Hemoglobin 31.1 PG (27.0-31.0) H Mean Corpuscular Hemoglobin Concent 32.0 G/DL (32.0-36.0) Red Cell Distribution Width 12.9 % (11.6-14.8) Platelet Count 174 K/UL (150-450) Mean Platelet Volume 10.8 FL (6.5-10.1) H Neutrophils (%) (Auto) 55.3 % (45.0-75.0) Lymphocytes (%) (Auto) 29.3 % (20.0-45.0) Monocytes (%) (Auto) 14.2 % (1.0-10.0) H Eosinophils (%) (Auto) 0.3 % (0.0-3.0) Basophils (%) (Auto) 1.0 % (0.0-2.0) Erythrocyte Sedimentation Rate 38 MM/HR (0-42) Activated Partial Thromboplast Time 112 SEC (23-33) H 114 SEC (23-33) H Sodium Level 139 mEQ/L (135-145) Potassium Level 3.6 mEQ/L (3.4-4.9) Chloride Level 95 mEQ/L (98-107) L Carbon Dioxide Level 25 mEQ/L (20-30) Anion Gap 19 (5-15) H Blood Urea Nitrogen 41 mg/dL (7-23) H Creatinine 2.0 mg/dL (0.5-0.9) H Estimat Glomerular Filtration Rate mL/min (>60) Glucose Level 101 mg/dL (74-106) Calcium Level 10.7 mg/dL (8.6-10.2) H Phosphorus Level 3.0 mg/dL (2.5-4.8) Total Bilirubin 0.9 mg/dL (0.0-1.2) Aspartate Amino Transf (AST/SGOT) 42 U/L (5-40) H Alanine Aminotransferase (ALT/SGPT) 26 U/L (3-33) Alkaline Phosphatase 99 U/L (35-104) C-Reactive Protein, Quantitative 0.3 mg/dL (< 0.5) Total Protein 7.5 g/dL (6.6-8.7) Albumin 3.7 g/dL (3.5-5.2) Globulin 3.8 g/dL Albumin/Globulin Ratio 0.9 (1.0-2.7) L Urine Random Sodium 17 mmol/L Microbiology Date/Time Source Procedure Growth Status 07/09/16 17:54 Nasal Nares MRSA Culture - Final NO METHICILLIN RESISTANT STAPH AUREUS... Complete 07/09/16 17:18 Urine,Clean Catch Urine Culture - Preliminary Gram Negative Jacob Gram Negative Bacillus 2 Resulted Intake and Output 07/10/16 07/11/16 19:00 07:00 Intake Total 269.016 ml 646.127 ml Output Total 100 ml 600 ml Balance 169.016 ml 46.127 ml Intake Oral 60 ml 120 ml IV Total 209.016 ml 526.127 ml Output Urine Total 100 ml 600 ml Objective GENERAL: The patient is awake, responsive, and in no acute distress. HEENT: Pupils are equal and reactive to light on the right eye. Left eye is opacified and blindness. NECK: Supple. No JVD. LUNGS: fair bilateral air entry. No wheezing or rales. HEART: S1 and S2 RR. Distant heart sounds. No Murmur. ABDOMEN: Soft, nondistended, and morbidly obese. EXTREMITY: +2 edema of bilateral lower extremity as well as hyperpigmentation and venous stasis of bilateral lower extremities. GENITOURINARY: Bullard catheter with yellow urine. Assessment/Plan Assessment/Plan ASSESSMENT: 1. Lower abdominal pain most likely secondary to the GNR urinary tract infection. 2. Left eye blindness. 3. Diabetes type 2. 4. Atrial fibrillation with rapid ventricular rate. 5. Hypertension. 6. Functional quadriplegia. 7. Decubitus ulcer. 8. Bilateral lower extremity edema with a deep venous thrombosis. 9. Venous stasis of bilateral lower extremities with hyperpigmentation. 10. Cognitive communication deficit. 11. Severe dehydration. 12. Acute kidney injury / ATN. 13. Hypovolemia 14. Hyponatremia 15. Hypercalcemia. PLAN: in telemetry. Monitor laboratory and cultures. Broad-spectrum antibiotics with Rocephin on heparin drip and Start Coumadin. Cardiology consultation with Dr. David Watts Pulmonary consultation with Dr. Calderón Nephrology consultation with Dr. Dusty Henry ID consult with Dr. Caldera decrease IVF @ 75 cc/hr Renal US Full Code PCN allergy Darvin Farah MD Jul 11, 2016 20:36
[2016-07-11 21:20] LABS: TROPONIN I < 0.30 ng/mL (<=0.30)
[2016-07-11] MEDS ORDERED: Warfarin Sodium 5mg ORAL ONE (21:30)
--- NOTE | 2016-07-11 21:39 | Consultation ---
DATE OF CONSULTATION: CONSULTING PHYSICIAN: Fer Caldera M.D. ATTENDING PHYSICIAN: Darvin Farah M.D. REFERRING PHYSICIAN: Darvin Farah M.D. REASON FOR CONSULTATION: Gram-negative UTI. CHIEF COMPLAINT COMING INTO THE HOSPITAL: Atrial fibrillation with rapid ventricular response. HISTORY OF PRESENT ILLNESS: This is an 86-year-old female, who has a history of multiple medical problems who comes into [facility] with atrial fibrillation with rapid ventricular response. The patient was noted to have a complicated UTI. She has a gram-negative UTI with significantly positive urinalysis with greater than 100,000 gram-negative rods on urine culture. Infectious Disease consultation is requested for antibiotic management. She is allergic to penicillin, but tolerates Rocephin. The patient is presently on Rocephin 1 g IV q.24 h. pending final urine culture results. MAR was noted. Orders were noted. Notes and records were reviewed. Case discussed with RN at the bedside and the patient. REVIEW OF SYSTEMS: Constitutional: She has generalized weakness and fatigue. No fever, chills, or night sweats. No weight loss. Head and Neck: No thrush or dysphagia. Pulmonary: No shortness of breath or cough. Cardiac: She has palpitations and rapid ventricular response. Gastrointestinal: No nausea, vomiting, or diarrhea. Genitourinary: She has a Bullard. Skin: No rash or itching. Extremities: No extremity pain. She has edema. Neurologic: No seizures. PAST MEDICAL HISTORY: The patient has past medical history of elevated creatinine and chronic kidney disease. She has a history of hypertension and atrial fibrillation. She has rapid ventricular response. She has a history of hypothyroidism, hyperuricemia, and DVT. She has a history of dehydration. She is hypokalemic, ATN, hyponatremia. She has a history of diabetes in addition to hypertension, hypothyroidism, CAD, and tachycardia. Please see past medical history in medical order. ALLERGIES: Codeine, morphine, and penicillins. FAMILY HISTORY: Noncontributory. Negative for exposure to tuberculosis or cancer. SOCIAL HISTORY: Negative for smoking, alcohol, or drug abuse. MEDICATIONS: Upon reviewing the MAR, the patient is now on the following medications. She is on Rocephin, sodium chloride, and Cardizem. She is on Synthroid and heparin. She is on IV fluids, nitroglycerin, Mylanta, Restoril, Zofran, MiraLax, and Tylenol. She is on breathing treatments. Please put medications in the medical order, past medical history in medical order. Outside medications noted and reconciliated. Reconciliated medications - she is on ascorbic acid, allopurinol, albuterol, benazepril, furosemide, lactulose, levothyroxine, melatonin, metoclopramide, multivitamins, omeprazole, senna, Ultram, vitamin D, and colchicine. Please see medications in medical order and past medical history in medical order. PHYSICAL EXAMINATION: VITAL SIGNS: Temperature 97.2, pulse rate 123, respiratory rate 20, blood pressure /60, and saturation 95%. Pulse rate has been high at 156. GENERAL: Alert, responsive, in no acute distress. She has generalized weakness. HEAD AND NECK: Oral exam, no thrush. Eye exam, no icterus. Neck is supple. No JVD. No sinus tenderness. Normocephalic. No facial droop. No neck stiffness. HEART: Tachycardic, irregular. ABDOMEN: Soft. Positive bowel sounds. LUNGS: Clear bilaterally. No rhonchi or rales. SKIN: No rash or dermatitis. MUSCULOSKELETAL: No evidence of septic arthritis. Lower extremities, she has edema, but no cellulitis. PERIPHERAL VASCULAR: No cyanosis or gangrene. RECTAL: Deferred. GENITOURINARY: She has a Bullard. Urine is cloudy. LINES: Line sites without phlebitis. NEUROLOGIC: Generalized weakness. Responsive. Seems to be oriented. LABORATORY DATA: White count is 9.6, hemoglobin 14.7, and platelet count is 215,000. Creatinine is 2.2, calcium 11.1. Total bilirubin is 1.3. Creatinine 2.2. Urinalysis had positive nitrite, 2+ leukocyte esterase, 5 to 10 white blood cells, many bacteria. Urine culture, greater than 100,000 gram-negative rods. Identification is pending. Chest x-ray revealed no obvious pneumonia. No consolidations noted . ASSESSMENT AND PLAN: 1. The patient has a gram-negative urinary tract infection. The patient likely has a complicated urinary tract infection. We will continue Rocephin for gram-negative urinary tract infection coverage. Check urine culture and follow. 2. Atrial fibrillation with rapid ventricular response. 3. Acute kidney injury on chronic renal failure. 4. Dehydration. 5. Hyponatremia. 6. Hypothyroidism. 7. Hyperuricemia. 8. Hypertension. 9. Diabetes. 10. Continue blood pressure treatment per primary consultants. 11. Deep venous thrombosis. 12. Coronary artery disease. 13. Tachycardia. 14. Atrial fibrillation. 15. Allergies to codeine, morphine, and penicillin. 16. 17. Case discussed with RN. 18. Family history noncontributory. 19. Social history negative for smoking, alcohol, or drug abuse. 20. Notes and records reviewed. MAR was noted. 21. Continue treatment per Dr. Farah and consultants. 22. Skin care per protocol. 23. Treatment for edema. 24. Case discussed with the patient. Fer Caldera M.D. DR: KENNY JOB#: [id number] CC:
[2016-07-11] MEDS ORDERED: Heparin 5000 units/ml inj IV ONE (22:00)
[2016-07-11] MEDS: Vitamin A&D Oint 2oz Tube TOPIC SCH (22:51)
[2016-07-11] MEDS: cefTRIAXone 1 GM in D5W 55 ML IVPB SCH (22:51)
--- NOTE | 2016-07-11 23:13 | Pulmonology Progress Note ---
Assessment/Plan Problems: (1) Atrial fibrillation with rapid ventricular response (2) DVT (deep venous thrombosis) (3) UTI (urinary tract infection) Assessment/Plan on heparin drip on coumadine f/u pt, ptt check sensitivity of urine organism heart rate controlled Subjective ROS Limited/Unobtainable: No Interval Events: doing better, constipated Allergies: Coded Allergies: CODEINE (Verified Allergy, Intermediate, 07/09/16) MORPHINE (Verified Allergy, Intermediate, 07/09/16) PENICILLINS (Verified Allergy, Intermediate, 07/09/16) Objective Last 24 Hour Vital Signs Date Time Temp Pulse Resp B/P Pulse Ox O2 Delivery O2 Flow Rate FiO2 07/11/16 22:52 100 113/60 07/11/16 20:00 97.8 100 20 113/60 97 Room Air 07/11/16 16:00 97.1 98 20 117/68 97 Room Air 07/11/16 14:47 104 112/72 07/11/16 11:58 91 07/11/16 11:38 97.0 101 20 108/69 97 Room Air 07/11/16 09:01 97.0 105 20 119/64 100 Room Air 07/11/16 08:04 94 07/11/16 08:00 97.0 105 20 119/64 100 Room Air 07/11/16 06:31 100 104/70 07/11/16 04:00 109 07/11/16 04:00 97.3 100 16 104/70 96 Room Air 07/11/16 00:00 97.9 119 16 116/62 100 Room Air 07/11/16 00:00 110 Intake and Output 07/10/16 07/11/16 19:00 07:00 Intake Total 269.016 ml 646.127 ml Output Total 100 ml 600 ml Balance 169.016 ml 46.127 ml Intake Oral 60 ml 120 ml IV Total 209.016 ml 526.127 ml Output Urine Total 100 ml 600 ml Objective General Appearance: WD/WN HEENT: normocephalic, atraumatic Respiratory/Chest: chest wall non-tender, lungs clear Cardiovascular: normal peripheral pulses, normal rate Abdomen: normal bowel sounds, soft, non tender, Extremities: no cyanosis, no clubbing Skin: no rash Microbiology Date/Time Source Procedure Growth Status 07/09/16 17:54 Nasal Nares MRSA Culture - Final NO METHICILLIN RESISTANT STAPH AUREUS... Complete 07/09/16 17:18 Urine,Clean Catch Urine Culture - Preliminary Gram Negative Jacob Gram Negative Bacillus 2 Resulted Laboratory Tests 07/11/16 04:15: White Blood Count 11.0H, Red Blood Count 4.31, Hemoglobin 13.4, Hematocrit 42.0 , Mean Corpuscular Volume 97, Mean Corpuscular Hemoglobin 31.1H, Mean Corpuscular Hemoglobin Concent 32.0, Red Cell Distribution Width 12.9, Platelet Count 174, Mean Platelet Volume 10.8H, Neutrophils (%) (Auto) 55.3, Lymphocytes (%) (Auto) 29.3, Monocytes (%) (Auto) 14.2H, Eosinophils (%) (Auto) 0.3, Basophils (%) (Auto) 1.0, Erythrocyte Sedimentation Rate 38, Activated Partial Thromboplast Time 112H, Sodium Level 139, Potassium Level 3.6, Chloride Level 95L, Carbon Dioxide Level 25, Anion Gap 19H, Blood Urea Nitrogen 41H, Creatinine 2.0H, Estimat Glomerular Filtration Rate , Glucose Level 101, Calcium Level 10.7H, Phosphorus Level 3.0, Total Bilirubin 0.9, Aspartate Amino Transf (AST/SGOT) 42H, Alanine Aminotransferase (ALT/SGPT) 26, Alkaline Phosphatase 99, C-Reactive Protein, Quantitative 0.3, Total Protein 7.5, Albumin 3.7, Globulin 3.8, Albumin/Globulin Ratio 0.9L 07/11/16 11:45: Urine Random Sodium 17 07/11/16 12:15: Activated Partial Thromboplast Time 114H 07/11/16 20:50: Activated Partial Thromboplast Time 60H, Ionized Calcium (Measured) 1.22, Troponin I < 0.30 Current Medications Medications (Trade) Dose Ordered Sig/Gt Route PRN Reason Start Time Stop Time Status Last Admin Dose Admin Acetaminophen (Tylenol) 650 mg Q4H PRN ORAL fever 07/09/16 20:45 08/08/16 20:44 Ceftriaxone Sodium/Dextrose (Rocephin/D5W) 55 ml @ 110 mls/hr Q24H IVPB 07/10/16 20:00 07/17/16 19:59 07/11/16 22:51 Dextrose (Dextrose 50%) STAT PRN IV Hypoglycemia 07/09/16 20:45 08/08/16 20:44 Diltiazem HCl (Cardizem) 10 mg Q1H PRN IV HR>120 07/10/16 08:00 08/09/16 07:59 07/10/16 12:53 Diltiazem HCl 30 mg 30 mg EVERY 8 HOURS ORAL 07/10/16 14:00 08/09/16 13:59 07/11/16 22:52 Heparin Sodium/ Dextrose (Heparin) 500 ml @ 20.321 mls/ hr adjust per protocol IV 07/11/16 21:44 08/10/16 07:14 07/11/16 22:56 Levothyroxine Sodium (Synthroid) 125 mcg ACBREAKFAST ORAL 07/10/16 06:30 08/09/16 06:29 07/11/16 06:31 Nitroglycerin (Ntg) 0.4 mg Q5M X 3 DOSES PRN SL Prn Chest Pain 07/09/16 20:45 08/08/16 20:44 Ondansetron HCl (Zofran) 4 mg Q6H PRN IVP Nausea & Vomiting 07/09/16 20:45 08/08/16 20:44 Polyethylene Glycol (Miralax) 17 gm HSPRN PRN ORAL Constipation 07/09/16 20:45 08/08/16 20:44 Sodium Chloride (Sodium Chloride 1000ml bag) 1,000 ml @ 75 mls/hr [id number] IV 07/12/16 21:00 08/11/16 20:59 07/11/16 22:52 Temazepam (Restoril) 15 mg HSPRN PRN ORAL Insomnia 07/09/16 20:45 07/16/16 20:44 Vitamin A/Vitamin D 1 applic 1 applic EVERY 12 HOURS TOPIC 07/11/16 21:00 08/10/16 20:59 07/11/16 22:51 Warfarin Sodium 1 ea 1 ea DAILY PRN MISC Per rx protocol 07/11/16 20:45 08/10/16 20:44 MIMI MCMILLAN Jul 11, 2016 23:13
[2016-07-12 00:25] VITALS: BP 131/75
[2016-07-12 04:00] VITALS: BP 123/94
[2016-07-12] MEDS: Heparin 25,000u/D5W 500ml 500 ML IV SCH (06:16)
[2016-07-12] MEDS: Levothyroxine 125mcg tab ORAL SCH (06:17)
[2016-07-12 06:34] LABS: BASOPHILS % (AUTO) 1.2 % (0.0-2.0); EOSINOPHILS % (AUTO) 1.6 % (0.0-3.0); LYMPHOCYTES % (AUTO) 36.5 % (20.0-45.0); MEAN CORPUSCULAR HEMOGLOBIN 31.3 PG (27.0-31.0); MEAN CORPUSCULAR HGB CONC 32.6 G/DL (32.0-36.0); MEAN CORPUSCULAR VOLUME 96 FL (80-99); MEAN PLATELET VOLUME 11.3 FL (6.5-10.1); MONOCYTES % (AUTO) 6.8 % (1.0-10.0); NEUTROPHILS % (AUTO) 53.9 % (45.0-75.0); PLATELET COUNT 147 K/UL (150-450); RED BLOOD COUNT 3.96 M/UL (4.20-5.40); WHITE BLOOD COUNT 6.1 K/UL (4.8-10.8)
[2016-07-12 07:07] LABS: ALANINE AMINOTRANSFERASE 22 U/L (3-33); ANION GAP 14 (5-15); ASPARTATE AMINO TRANSFERASE 33 U/L (5-40); CARBON DIOXIDE 26 mEQ/L (20-30); CHLORIDE 99 mEQ/L (98-107); CHOLESTEROL 120 mg/dL (< 200); CHOLESTEROL/HDL RATIO 2.7 (3.3-4.4); CREATININE 0.7 mg/dL (0.5-0.9); CRP QUANT < 0.3 mg/dL (< 0.5); HEMOLYSIS 5; LDL CHOLESTEROL (CALC.) 57 mg/dL (60-99); MAGNESIUM 1.5 mg/dL (1.7-2.5); PHOSPHORUS 2.3 mg/dL (2.5-4.8); POTASSIUM 2.8 mEQ/L (3.4-4.9); SODIUM 139 mEQ/L (135-145); TOTAL PROTEIN 6.4 g/dL (6.6-8.7); URIC ACID 6.4 mg/dL (3.0-7.5)
[2016-07-12 07:18] LABS: HEMOGLOBIN A1C 5.2 % (< 6.0)
[2016-07-12 07:36] LABS: INR 1.1 (0.9-1.1); PROTHROMBIN TIME 11.5 SEC (9.30-11.50)
[2016-07-12 08:00] VITALS: BP 126/71
[2016-07-12] MEDS: Vitamin A&D Oint 2oz Tube TOPIC SCH ×2 (08:18→22:49)
[2016-07-12] MEDS ORDERED: Heparin 5000 units/ml inj IV ONE (08:30)
[2016-07-12] MEDS ORDERED: Heparin 25,000u/D5W 500ml 500 ML IV SCH ×3 (08:30→16:30)
--- NOTE | 2016-07-12 10:36 | Internal Med Progress Note ---
Subjective Date of Service: Jul 12, 2016 Physician Name Luis Felipe Da Silva Attending Physician Darvin Farah MD Current Medications Medications (Trade) Dose Ordered Sig/Gt Route PRN Reason Start Time Stop Time Status Last Admin Dose Admin Acetaminophen (Tylenol) 650 mg Q4H PRN ORAL fever 07/09/16 20:45 08/08/16 20:44 Ceftriaxone Sodium/Dextrose (Rocephin/D5W) 55 ml @ 110 mls/hr Q24H IVPB 07/10/16 20:00 07/17/16 19:59 07/11/16 22:51 Dextrose (Dextrose 50%) STAT PRN IV Hypoglycemia 07/09/16 20:45 08/08/16 20:44 Diltiazem HCl (Cardizem) 10 mg Q1H PRN IV HR>120 07/10/16 08:00 08/09/16 07:59 07/10/16 12:53 Diltiazem HCl 30 mg 30 mg EVERY 8 HOURS ORAL 07/10/16 14:00 08/09/16 13:59 07/12/16 06:17 Heparin Sodium/ Dextrose 500 ml @ 23.224 mls/ hr adjust per protocol IV 07/12/16 08:30 08/11/16 08:29 07/12/16 08:20 Levothyroxine Sodium (Synthroid) 125 mcg ACBREAKFAST ORAL 07/10/16 06:30 08/09/16 06:29 07/12/16 06:17 Nitroglycerin (Ntg) 0.4 mg Q5M X 3 DOSES PRN SL Prn Chest Pain 07/09/16 20:45 08/08/16 20:44 Ondansetron HCl (Zofran) 4 mg Q6H PRN IVP Nausea & Vomiting 07/09/16 20:45 08/08/16 20:44 Polyethylene Glycol (Miralax) 17 gm HSPRN PRN ORAL Constipation 07/09/16 20:45 08/08/16 20:44 Potassium Chloride (K-Dur) 40 meq THREE TIMES A DAY ORAL 07/12/16 13:00 07/13/16 09:01 Sodium Chloride (Sodium Chloride 1000ml bag) 1,000 ml @ 40 mls/hr Q24H IV 07/12/16 11:00 08/11/16 10:59 Temazepam (Restoril) 15 mg HSPRN PRN ORAL Insomnia 07/09/16 20:45 07/16/16 20:44 Vitamin A/Vitamin D (A & D Oint) 1 applic EVERY 12 HOURS TOPIC 07/11/16 21:00 08/10/16 20:59 07/12/16 08:18 Warfarin Sodium 1 ea 1 ea DAILY PRN MISC Per rx protocol 07/11/16 20:45 08/10/16 20:44 Allergies: Coded Allergies: CODEINE (Verified Allergy, Intermediate, 07/09/16) MORPHINE (Verified Allergy, Intermediate, 07/09/16) PENICILLINS (Verified Allergy, Intermediate, 07/09/16) ROS Limited/Unobtainable: Yes Subjective 86 YO F admitted with abdominal pain, now urinary tract infection. Cover for Int [facility]-Dr Farah. Objective Last Vital Signs Date Time Temp Pulse Resp B/P Pulse Ox O2 Delivery O2 Flow Rate FiO2 07/12/16 08:00 96.7 91 17 126/71 95 Room Air Laboratory Tests Test 07/11/16 11:45 07/11/16 12:15 07/11/16 20:50 07/12/16 06:20 Urine Random Sodium 17 mmol/L Activated Partial Thromboplast Time 114 SEC (23-33) H 60 SEC (23-33) H 51 SEC (23-33) H Ionized Calcium (Measured) 1.22 mmol/L (1.10-1.35) Troponin I < 0.30 ng/mL (<=0.30) White Blood Count 6.1 K/UL (4.8-10.8) Red Blood Count 3.96 M/UL (4.20-5.40) L Hemoglobin 12.4 G/DL (12.0-16.0) Hematocrit 38.0 % (37.0-47.0) Mean Corpuscular Volume 96 FL (80-99) Mean Corpuscular Hemoglobin 31.3 PG (27.0-31.0) H Mean Corpuscular Hemoglobin Concent 32.6 G/DL (32.0-36.0) Red Cell Distribution Width 13.0 % (11.6-14.8) Platelet Count 147 K/UL (150-450) L Mean Platelet Volume 11.3 FL (6.5-10.1) H Neutrophils (%) (Auto) 53.9 % (45.0-75.0) Lymphocytes (%) (Auto) 36.5 % (20.0-45.0) Monocytes (%) (Auto) 6.8 % (1.0-10.0) Eosinophils (%) (Auto) 1.6 % (0.0-3.0) Basophils (%) (Auto) 1.2 % (0.0-2.0) Prothrombin Time 11.5 SEC (9.30-11.50) Prothromb Time International Ratio 1.1 (0.9-1.1) Sodium Level 139 mEQ/L (135-145) Potassium Level 2.8 mEQ/L (3.4-4.9) L Chloride Level 99 mEQ/L (98-107) Carbon Dioxide Level 26 mEQ/L (20-30) Anion Gap 14 (5-15) Blood Urea Nitrogen 18 mg/dL (7-23) Creatinine 0.7 mg/dL (0.5-0.9) # Estimat Glomerular Filtration Rate mL/min (>60) Glucose Level 100 mg/dL (74-106) Hemoglobin A1c 5.2 % (< 6.0) Uric Acid 6.4 mg/dL (3.0-7.5) Calcium Level 10.0 mg/dL (8.6-10.2) Phosphorus Level 2.3 mg/dL (2.5-4.8) L Magnesium Level 1.5 mg/dL (1.7-2.5) L Total Bilirubin 0.7 mg/dL (0.0-1.2) Gamma Glutamyl Transpeptidase 119 U/L (5-36) H Aspartate Amino Transf (AST/SGOT) 33 U/L (5-40) Alanine Aminotransferase (ALT/SGPT) 22 U/L (3-33) Alkaline Phosphatase 83 U/L (35-104) Total Creatine Kinase 25 U/L (26-140) L C-Reactive Protein, Quantitative < 0.3 mg/dL (< 0.5) Pro-B-Type Natriuretic Peptide 382 pg/mL (0-450) Total Protein 6.4 g/dL (6.6-8.7) L Albumin 3.3 g/dL (3.5-5.2) L Globulin 3.1 g/dL Albumin/Globulin Ratio 1.0 (1.0-2.7) Triglycerides Level 94 mg/dL (< 150) Cholesterol Level 120 mg/dL (< 200) LDL Cholesterol 57 mg/dL (60-99) L HDL Cholesterol 44 mg/dL (> 60) Cholesterol/HDL Ratio 2.7 (3.3-4.4) L Test 07/12/16 07:00 Urine Eosinophils None seen Microbiology Date/Time Source Procedure Growth Status 07/09/16 17:54 Nasal Nares MRSA Culture - Final NO METHICILLIN RESISTANT STAPH AUREUS... Complete 07/10/16 14:35 Urine,Clean Catch Urine Culture - Preliminary Gram Negative Bacillus 1 Resulted 07/09/16 17:18 Urine,Clean Catch Urine Culture - Final Escherichia Coli Pseudomonas Aeruginosa Complete 07/09/16 17:54 Rectum VRE Culture - Final NO VANCOMYCIN RESISTANT ENTEROCOCCUS ... Complete Intake and Output 07/11/16 07/12/16 19:00 07:00 Intake Total 637.728 ml 1040.143 ml Output Total 300 ml 1000 ml Balance 337.728 ml 40.143 ml Intake Oral 120 ml IV Total 517.728 ml 1040.143 ml Output Urine Total 300 ml 1000 ml Objective Objective GENERAL: The patient is awake, responsive, and in no acute distress. HEENT: Pupils are equal and reactive to light on the right eye. Left eye is opacified and blindness. NECK: Supple. No JVD. LUNGS: fair bilateral air entry. No wheezing or rales. HEART: S1 and S2 RR. Distant heart sounds. No Murmur. ABDOMEN: Soft, nondistended, and morbidly obese. EXTREMITY: +2 edema of bilateral lower extremity as well as hyperpigmentation and venous stasis of bilateral lower extremities. GENITOURINARY: Bullard catheter with yellow urine. Assessment/Plan Assessment/Plan Assessment/Plan Assessment/Plan ASSESSMENT: 1. Lower abdominal pain most likely secondary to the GNR urinary tract infection. 2. Left eye blindness. 3. Diabetes type 2. 4. Atrial fibrillation with rapid ventricular rate. 5. Hypertension. 6. Functional quadriplegia. 7. Decubitus ulcer. 8. Bilateral lower extremity edema with a deep venous thrombosis. 9. Venous stasis of bilateral lower extremities with hyperpigmentation. 10. Cognitive communication deficit. 11. Severe dehydration. 12. Acute kidney injury / ATN. 13. Hypovolemia 14. Hyponatremia 15. Hypercalcemia. PLAN: in telemetry. Monitor laboratory and cultures. Broad-spectrum antibiotics with Rocephin on heparin drip and Start Coumadin. Cardiology consultation with Dr. David Watts Pulmonary consultation with Dr. Calderón Nephrology consultation with Dr. Dusty Henry ID consult with Dr. Caldera decrease IVF @ 75 cc/hr Renal US Full Code PCN allergy LUIS FELIPE DA SILVA Jul 12, 2016 10:36
[2016-07-12 12:00] VITALS: BP 130/74
[2016-07-12] MEDS: KCl 10% 40mEq/30ml liquid ORAL SCH ×3 (12:16→22:48)
[2016-07-12] MEDS ORDERED: Cefepime 1gm in D5W 55ml IVPB SCH (13:00)
--- NOTE | 2016-07-12 13:35 | Infectious Diseases Prog Note ---
Assessment/Plan Assessment/Plan ASSESSMENT AND PLAN: 1. e.coli uti and pseudomonas uti - change abx to cefepime for 10 days - d/w pharmacy about abx - clinically stable 2. Atrial fibrillation with rapid ventricular response. 3. Acute kidney injury on chronic renal failure. 4. Dehydration. 5. Hyponatremia. 6. Hypothyroidism. 7. Hyperuricemia. 8. Hypertension. 9. Diabetes. 10. Continue blood pressure treatment per primary consultants. 11. Deep venous thrombosis. 12. Coronary artery disease. 13. Tachycardia. 14. Atrial fibrillation. 15. Allergies to codeine, morphine, and penicillin. 16. mar noted 17. Case discussed with RN. 18. Family history noncontributory. 19. Social history negative for smoking, alcohol, or drug abuse. 20. Notes and records reviewed. 21. Continue treatment per primary and consultants. 22. Skin care per protocol. 23. Treatment for edema. 24. Case discussed with the patient. Subjective Constitutional: Denies: fever HEENT: Denies: congestion Respiratory: Denies: shortness of breath Cardiovascular: Denies: chest pain, palpitations Gastrointestinal/Abdominal: Denies: diarrhea, nausea, vomiting Genitourinary: Reports: other - + pena Neurologic: Denies: headache Psychiatric: Denies: depression Skin: Denies: rash Hematologic: Denies: bleeding Musculoskeletal: Denies: pain Allergies: Coded Allergies: CODEINE (Verified Allergy, Intermediate, 07/09/16) MORPHINE (Verified Allergy, Intermediate, 07/09/16) PENICILLINS (Verified Allergy, Intermediate, 07/09/16) Objective Vital Signs Last 24 Hour Vital Signs Date Time Temp Pulse Resp B/P Pulse Ox O2 Delivery O2 Flow Rate FiO2 07/12/16 12:00 97.3 91 17 130/74 99 Room Air 07/12/16 08:00 96.7 91 17 126/71 95 Room Air 07/12/16 06:17 89 123/94 07/12/16 04:00 97.3 95 20 123/94 98 Room Air 07/12/16 04:00 89 07/12/16 00:25 97.2 92 20 131/75 100 Room Air 07/12/16 00:00 91 07/11/16 22:52 100 113/60 07/11/16 20:00 97.8 100 20 113/60 97 Room Air 07/11/16 20:00 103 3/12/17 16:00 97.1 98 20 117/68 97 Room Air 07/11/16 16:00 94 07/11/16 14:47 104 112/72 Height (Feet): 5 Height (Inches): 5.00 Weight (Pounds): 160 General Appearance: no acute distress HEENT: normocephalic, atraumatic, anicteric, mucous membranes moist, PERRL, EOMI, pharynx normal, supple, no JVD Respiratory/Chest: lungs clear, normal breath sounds, no accessory muscle use, respiratory distress Cardiovascular: normal peripheral pulses, normal rate, regular rhythm, no gallop/murmur, no JVD Abdomen: normal bowel sounds, soft, non tender, no organomegaly, non distended Genitourinary: other - + pena - urine cloudy Extremities: no cyanosis Skin: no rash Neurologic/Psychiatric: exercise specialist II-XII grossly normal, alert, oriented x 3, responsive Lymphatic: no neck adenopathy Musculoskeletal: no effusion Objective chest x-ray - negative, nad, no consolidation (reviewed) Microbiology Date/Time Source Procedure Growth Status 07/09/16 17:54 Nasal Nares MRSA Culture - Final NO METHICILLIN RESISTANT STAPH AUREUS... Complete 07/10/16 14:35 Urine,Clean Catch Urine Culture - Preliminary Gram Negative Bacillus 1 Resulted 07/09/16 17:18 Urine,Clean Catch Urine Culture - Final Escherichia Coli Pseudomonas Aeruginosa Complete 07/09/16 17:54 Rectum VRE Culture - Final NO VANCOMYCIN RESISTANT ENTEROCOCCUS ... Complete Laboratory Tests Test 07/11/16 20:50 07/12/16 06:20 07/12/16 07:00 Activated Partial Thromboplast Time 60 SEC (23-33) H 51 SEC (23-33) H Ionized Calcium (Measured) 1.22 mmol/L (1.10-1.35) Troponin I < 0.30 ng/mL (<=0.30) White Blood Count 6.1 K/UL (4.8-10.8) Red Blood Count 3.96 M/UL (4.20-5.40) L Hemoglobin 12.4 G/DL (12.0-16.0) Hematocrit 38.0 % (37.0-47.0) Mean Corpuscular Volume 96 FL (80-99) Mean Corpuscular Hemoglobin 31.3 PG (27.0-31.0) H Mean Corpuscular Hemoglobin Concent 32.6 G/DL (32.0-36.0) Red Cell Distribution Width 13.0 % (11.6-14.8) Platelet Count 147 K/UL (150-450) L Mean Platelet Volume 11.3 FL (6.5-10.1) H Neutrophils (%) (Auto) 53.9 % (45.0-75.0) Lymphocytes (%) (Auto) 36.5 % (20.0-45.0) Monocytes (%) (Auto) 6.8 % (1.0-10.0) Eosinophils (%) (Auto) 1.6 % (0.0-3.0) Basophils (%) (Auto) 1.2 % (0.0-2.0) Prothrombin Time 11.5 SEC (9.30-11.50) Prothromb Time International Ratio 1.1 (0.9-1.1) Sodium Level 139 mEQ/L (135-145) Potassium Level 2.8 mEQ/L (3.4-4.9) L Chloride Level 99 mEQ/L (98-107) Carbon Dioxide Level 26 mEQ/L (20-30) Anion Gap 14 (5-15) Blood Urea Nitrogen 18 mg/dL (7-23) Creatinine 0.7 mg/dL (0.5-0.9) # Estimat Glomerular Filtration Rate mL/min (>60) Glucose Level 100 mg/dL (74-106) Hemoglobin A1c 5.2 % (< 6.0) Uric Acid 6.4 mg/dL (3.0-7.5) Calcium Level 10.0 mg/dL (8.6-10.2) Phosphorus Level 2.3 mg/dL (2.5-4.8) L Magnesium Level 1.5 mg/dL (1.7-2.5) L Total Bilirubin 0.7 mg/dL (0.0-1.2) Gamma Glutamyl Transpeptidase 119 U/L (5-36) H Aspartate Amino Transf (AST/SGOT) 33 U/L (5-40) Alanine Aminotransferase (ALT/SGPT) 22 U/L (3-33) Alkaline Phosphatase 83 U/L (35-104) Total Creatine Kinase 25 U/L (26-140) L C-Reactive Protein, Quantitative < 0.3 mg/dL (< 0.5) Pro-B-Type Natriuretic Peptide 382 pg/mL (0-450) Total Protein 6.4 g/dL (6.6-8.7) L Albumin 3.3 g/dL (3.5-5.2) L Globulin 3.1 g/dL Albumin/Globulin Ratio 1.0 (1.0-2.7) Triglycerides Level 94 mg/dL (< 150) Cholesterol Level 120 mg/dL (< 200) LDL Cholesterol 57 mg/dL (60-99) L HDL Cholesterol 44 mg/dL (> 60) Cholesterol/HDL Ratio 2.7 (3.3-4.4) L Urine Eosinophils None seen Current Medications Medications (Trade) Dose Ordered Sig/Gt Route PRN Reason Start Time Stop Time Status Last Admin Dose Admin Acetaminophen (Tylenol) 650 mg Q4H PRN ORAL fever 07/09/16 20:45 08/08/16 20:44 Cefepime HCl/ Dextrose (Maxipime/D5W) 55 ml @ 110 mls/hr Q24H IVPB 07/12/16 13:00 07/19/16 12:59 Dextrose (Dextrose 50%) STAT PRN IV Hypoglycemia 07/09/16 20:45 08/08/16 20:44 Diltiazem HCl (Cardizem) 10 mg Q1H PRN IV HR>120 07/10/16 08:00 08/09/16 07:59 07/10/16 12:53 Diltiazem HCl (Cardizem) 30 mg EVERY 8 HOURS ORAL 07/10/16 14:00 08/09/16 13:59 07/12/16 06:17 Heparin Sodium/ Dextrose 500 ml @ 23.224 mls/ hr adjust per protocol IV 07/12/16 08:30 08/11/16 08:29 07/12/16 08:20 Levothyroxine Sodium (Synthroid) 125 mcg ACBREAKFAST ORAL 07/10/16 06:30 08/09/16 06:29 07/12/16 06:17 Nitroglycerin (Ntg) 0.4 mg Q5M X 3 DOSES PRN SL Prn Chest Pain 07/09/16 20:45 08/08/16 20:44 Ondansetron HCl (Zofran) 4 mg Q6H PRN IVP Nausea & Vomiting 07/09/16 20:45 08/08/16 20:44 Polyethylene Glycol (Miralax) 17 gm HSPRN PRN ORAL Constipation 07/09/16 20:45 08/08/16 20:44 Potassium Chloride 40 meq 40 meq TID@1200,1700,2200 ORAL 07/12/16 12:00 07/12/16 22:01 07/12/16 12:16 Sodium Chloride (Sodium Chloride 1000ml bag) 1,000 ml @ 40 mls/hr Q24H IV 07/12/16 11:00 08/11/16 10:59 07/12/16 11:16 Temazepam (Restoril) 15 mg HSPRN PRN ORAL Insomnia 07/09/16 20:45 07/16/16 20:44 Vitamin A/Vitamin D (A & D Oint) 1 applic EVERY 12 HOURS TOPIC 07/11/16 21:00 08/10/16 20:59 07/12/16 08:18 Warfarin Sodium (Coumadin) 5 mg COUMADIN ORAL 07/12/16 17:00 07/12/16 17:01 Warfarin Sodium 1 ea 1 ea DAILY PRN MISC Per rx protocol 07/11/16 20:45 08/10/16 20:44 WISAM LAURA Jul 12, 2016 13:35
--- NOTE | 2016-07-12 15:03 | Cardiology Report ---
APPROVED REPORT EXAM: Two-dimensional and M-mode echocardiogram with Doppler and color Doppler. INDICATION Left Ventricular Function M-Mode DIMENSIONS IVSd1.0 (0.7-1.1cm)Left Atrium (MM)4.8 (1.6-4.0cm) LVDd4.5 (3.5-5.6cm)Aortic Root2.7 (2.0-3.7cm) PWd0.6 (0.7-1.1cm)Aortic Cusp Exc.1.6 (1.5-2.0cm) LVDs3.2 (2.5-4.0cm) PWs1.6 cm Technically difficult study due to poor acoustic windows. Study quality precludes accurate assessment of regional wall motion. Normal left ventricular chamber size, systolic function and wall motion. Left ventricular ejection fraction estimated to be 55 %. No evidence of ventricular hypertrophy. Anterior Echo-free space, may be due to pericardial fat or effusion. Moderate left atrial enlargement. Right atrial and right ventricular chamber sizes are within normal limits. Mild focal aortic valve sclerosis with adequate cusp excursion. Mildly thickened mitral valve leaflets with normal excursion. Mild mitral annulus and aortic root calcification. Pulmonic valve not well visualized. Normal tricuspid valve structure. IVC dilated at 2.0 cm with physiologic collapse. A color flow and spectral Doppler study was performed and revealed: Mild aortic regurgitation. Trace mitral regurgitation. Left ventricular diastolic function could not be determined due to A-Fib. Moderate tricuspid regurgitation. Tricuspid systolic velocities suggests peak right ventricular systolic pressure of 54 mmHg, consistent with moderate pulmonary hypertension. No pulmonic regurgitation present.
--- NOTE | 2016-07-12 15:13 | General Progress Note ---
Assessment/Plan Status: stable - from renal stand Assessment/Plan Renal failure, likely acute on chronic factors; DM , HTN , ? Medications ( NSAIDs) then superimposed dehydration - Lower abdominal pain most likely secondary to the urinary tract infection. - Left eye blindness. - Diabetes type 2. - Atrial fibrillation with rapid ventricular rate. - Hypertension. - Functional quadriplegia. - Decubitus ulcer. - Bilateral lower extremity edema with a deep venous thrombosis. - Venous stasis of bilateral lower extremities with hyperpigmentation. - Cognitive communication deficit. - HypoThyroidism Plan: K and Phos and Mag supplement Stop all NSAIDs urine studies- monitor renal parameters slow hydrate watch for CHF symptoms per orders Subjective ROS Limited/Unobtainable: No Constitutional: Reports: other - feels stronger Allergies: Coded Allergies: CODEINE (Verified Allergy, Intermediate, 07/09/16) MORPHINE (Verified Allergy, Intermediate, 07/09/16) PENICILLINS (Verified Allergy, Intermediate, 07/09/16) Objective Last 24 Hour Vital Signs Date Time Temp Pulse Resp B/P Pulse Ox O2 Delivery O2 Flow Rate FiO2 07/12/16 14:02 91 130/74 07/12/16 12:00 97.3 91 17 130/74 99 Room Air 07/12/16 11:27 88 07/12/16 08:10 96 07/12/16 08:00 96.7 91 17 126/71 95 Room Air 07/12/16 06:17 89 123/94 07/12/16 04:00 97.3 95 20 123/94 98 Room Air 07/12/16 04:00 89 07/12/16 00:25 97.2 92 20 131/75 100 Room Air 07/12/16 00:00 91 07/11/16 22:52 100 113/60 07/11/16 20:00 97.8 100 20 113/60 97 Room Air 07/11/16 20:00 103 07/11/16 16:00 97.1 98 20 117/68 97 Room Air 07/11/16 16:00 94 Intake and Output 07/11/16 07/12/16 19:00 07:00 Intake Total 637.728 ml 1040.143 ml Output Total 300 ml 1000 ml Balance 337.728 ml 40.143 ml Intake Oral 120 ml IV Total 517.728 ml 1040.143 ml Output Urine Total 300 ml 1000 ml Laboratory Tests 07/11/16 20:50: Activated Partial Thromboplast Time 60H, Ionized Calcium (Measured) 1.22, Troponin I < 0.30 07/12/16 06:20: Activated Partial Thromboplast Time 51H, White Blood Count 6.1, Red Blood Count 3.96L, Hemoglobin 12.4, Hematocrit 38.0, Mean Corpuscular Volume 96, Mean Corpuscular Hemoglobin 31.3H, Mean Corpuscular Hemoglobin Concent 32.6, Red Cell Distribution Width 13.0, Platelet Count 147L, Mean Platelet Volume 11.3H, Neutrophils (%) (Auto) 53.9, Lymphocytes (%) (Auto) 36.5, Monocytes (%) (Auto) 6.8, Eosinophils (%) (Auto) 1.6, Basophils (%) (Auto) 1.2, Prothrombin Time 11.5 , Prothromb Time International Ratio 1.1, Sodium Level 139, Potassium Level 2.8L , Chloride Level 99, Carbon Dioxide Level 26, Anion Gap 14, Blood Urea Nitrogen 18, Creatinine 0.7#, Estimat Glomerular Filtration Rate , Glucose Level 100, Hemoglobin A1c 5.2, Uric Acid 6.4, Calcium Level 10.0, Phosphorus Level 2.3L, Magnesium Level 1.5L, Total Bilirubin 0.7, Gamma Glutamyl Transpeptidase 119H, Aspartate Amino Transf (AST/SGOT) 33, Alanine Aminotransferase (ALT/SGPT) 22, Alkaline Phosphatase 83, Total Creatine Kinase 25L, C-Reactive Protein, Quantitative < 0.3, Pro-B-Type Natriuretic Peptide 382, Total Protein 6.4L, Albumin 3.3L, Globulin 3.1, Albumin/Globulin Ratio 1.0, Triglycerides Level 94, Cholesterol Level 120, LDL Cholesterol 57L, HDL Cholesterol 44, Cholesterol/HDL Ratio 2.7L 07/12/16 07:00: Urine Eosinophils None seen 07/12/16 14:30: Activated Partial Thromboplast Time [Pending] Height (Feet): 5 Height (Inches): 5.00 Weight (Pounds): 160 General Appearance: no apparent distress Cardiovascular: tachycardia Respiratory/Chest: decreased breath sounds Abdomen: soft Edema: 2+ Arm (L), 2+ Arm (R), 2+ Leg (L), 2+ Leg (R), 2+ Pedal (L), 2+ Pedal ( R), 2+ Generalized YOGESH PERRY Jul 12, 2016 15:13
--- NOTE | 2016-07-12 15:24 | Pulmonology Progress Note ---
Assessment/Plan Problems: (1) Atrial fibrillation with rapid ventricular response (2) DVT (deep venous thrombosis) (3) UTI (urinary tract infection) Assessment/Plan on heparin drip on coumadine f/u pt, ptt check sensitivity of urine organism heart rate controlled med/surg all labs/ meds reviewed Subjective Constitutional: Reports: no symptoms Allergies: Coded Allergies: CODEINE (Verified Allergy, Intermediate, 07/09/16) MORPHINE (Verified Allergy, Intermediate, 07/09/16) PENICILLINS (Verified Allergy, Intermediate, 07/09/16) Objective Last 24 Hour Vital Signs Date Time Temp Pulse Resp B/P Pulse Ox O2 Delivery O2 Flow Rate FiO2 07/12/16 14:02 91 130/74 07/12/16 12:00 97.3 91 17 130/74 99 Room Air 07/12/16 11:27 88 07/12/16 08:10 96 07/12/16 08:00 96.7 91 17 126/71 95 Room Air 07/12/16 06:17 89 123/94 07/12/16 04:00 97.3 95 20 123/94 98 Room Air 07/12/16 04:00 89 07/12/16 00:25 97.2 92 20 131/75 100 Room Air 07/12/16 00:00 91 07/11/16 22:52 100 113/60 07/11/16 20:00 97.8 100 20 113/60 97 Room Air 07/11/16 20:00 103 07/11/16 16:00 97.1 98 20 117/68 97 Room Air 07/11/16 16:00 94 Intake and Output 07/11/16 07/12/16 19:00 07:00 Intake Total 637.728 ml 1040.143 ml Output Total 300 ml 1000 ml Balance 337.728 ml 40.143 ml Intake Oral 120 ml IV Total 517.728 ml 1040.143 ml Output Urine Total 300 ml 1000 ml Objective General Appearance: WD/WN HEENT: normocephalic, atraumatic Respiratory/Chest: chest wall non-tender, lungs clear Cardiovascular: normal peripheral pulses, normal rate Abdomen: normal bowel sounds, soft, non tender, Extremities: no cyanosis, no clubbing Skin: no rash Microbiology Date/Time Source Procedure Growth Status 07/09/16 17:54 Nasal Nares MRSA Culture - Final NO METHICILLIN RESISTANT STAPH AUREUS... Complete 07/10/16 14:35 Urine,Clean Catch Urine Culture - Preliminary Gram Negative Bacillus 1 Resulted 07/09/16 17:18 Urine,Clean Catch Urine Culture - Final Escherichia Coli Pseudomonas Aeruginosa Complete 07/09/16 17:54 Rectum VRE Culture - Final NO VANCOMYCIN RESISTANT ENTEROCOCCUS ... Complete Laboratory Tests 07/11/16 20:50: Activated Partial Thromboplast Time 60H, Ionized Calcium (Measured) 1.22, Troponin I < 0.30 07/12/16 06:20: Activated Partial Thromboplast Time 51H, White Blood Count 6.1, Red Blood Count 3.96L, Hemoglobin 12.4, Hematocrit 38.0, Mean Corpuscular Volume 96, Mean Corpuscular Hemoglobin 31.3H, Mean Corpuscular Hemoglobin Concent 32.6, Red Cell Distribution Width 13.0, Platelet Count 147L, Mean Platelet Volume 11.3H, Neutrophils (%) (Auto) 53.9, Lymphocytes (%) (Auto) 36.5, Monocytes (%) (Auto) 6.8, Eosinophils (%) (Auto) 1.6, Basophils (%) (Auto) 1.2, Prothrombin Time 11.5 , Prothromb Time International Ratio 1.1, Sodium Level 139, Potassium Level 2.8L , Chloride Level 99, Carbon Dioxide Level 26, Anion Gap 14, Blood Urea Nitrogen 18, Creatinine 0.7#, Estimat Glomerular Filtration Rate , Glucose Level 100, Hemoglobin A1c 5.2, Uric Acid 6.4, Calcium Level 10.0, Phosphorus Level 2.3L, Magnesium Level 1.5L, Total Bilirubin 0.7, Gamma Glutamyl Transpeptidase 119H, Aspartate Amino Transf (AST/SGOT) 33, Alanine Aminotransferase (ALT/SGPT) 22, Alkaline Phosphatase 83, Total Creatine Kinase 25L, C-Reactive Protein, Quantitative < 0.3, Pro-B-Type Natriuretic Peptide 382, Total Protein 6.4L, Albumin 3.3L, Globulin 3.1, Albumin/Globulin Ratio 1.0, Triglycerides Level 94, Cholesterol Level 120, LDL Cholesterol 57L, HDL Cholesterol 44, Cholesterol/HDL Ratio 2.7L 07/12/16 07:00: Urine Eosinophils None seen 07/12/16 14:30: Activated Partial Thromboplast Time [Pending] Current Medications Medications (Trade) Dose Ordered Sig/Gt Route PRN Reason Start Time Stop Time Status Last Admin Dose Admin Acetaminophen (Tylenol) 650 mg Q4H PRN ORAL fever 07/09/16 20:45 08/08/16 20:44 Cefepime HCl/ Dextrose (Maxipime/D5W) 55 ml @ 110 mls/hr Q24H IVPB 07/12/16 13:00 07/19/16 12:59 07/12/16 14:02 Dextrose (Dextrose 50%) STAT PRN IV Hypoglycemia 07/09/16 20:45 08/08/16 20:44 Diltiazem HCl (Cardizem) 10 mg Q1H PRN IV HR>120 07/10/16 08:00 08/09/16 07:59 07/10/16 12:53 Diltiazem HCl (Cardizem) 30 mg EVERY 8 HOURS ORAL 07/10/16 14:00 08/09/16 13:59 07/12/16 14:02 Heparin Sodium/ Dextrose 500 ml @ 23.224 mls/ hr adjust per protocol IV 07/12/16 08:30 08/11/16 08:29 07/12/16 08:20 Levothyroxine Sodium (Synthroid) 125 mcg ACBREAKFAST ORAL 07/10/16 06:30 08/09/16 06:29 07/12/16 06:17 Nitroglycerin (Ntg) 0.4 mg Q5M X 3 DOSES PRN SL Prn Chest Pain 07/09/16 20:45 08/08/16 20:44 Ondansetron HCl (Zofran) 4 mg Q6H PRN IVP Nausea & Vomiting 07/09/16 20:45 08/08/16 20:44 Polyethylene Glycol (Miralax) 17 gm HSPRN PRN ORAL Constipation 07/09/16 20:45 08/08/16 20:44 Potassium Chloride 40 meq 40 meq TID@1200,1700,2200 ORAL 07/12/16 12:00 07/12/16 22:01 07/12/16 12:16 Sodium Chloride (Sodium Chloride 1000ml bag) 1,000 ml @ 40 mls/hr Q24H IV 07/12/16 11:00 08/11/16 10:59 07/12/16 11:16 Temazepam (Restoril) 15 mg HSPRN PRN ORAL Insomnia 07/09/16 20:45 07/16/16 20:44 Vitamin A/Vitamin D (A & D Oint) 1 applic EVERY 12 HOURS TOPIC 07/11/16 21:00 08/10/16 20:59 07/12/16 08:18 Warfarin Sodium (Coumadin) 5 mg COUMADIN ORAL 07/12/16 17:00 07/12/16 17:01 Warfarin Sodium 1 ea 1 ea DAILY PRN MISC Per rx protocol 07/11/16 20:45 08/10/16 20:44 MIMI MCMILLAN Jul 12, 2016 15:24
[2016-07-12 16:00] VITALS: BP 123/63
[2016-07-12] MEDS ORDERED: Warfarin Sodium 5mg ORAL SCH (17:00)
[2016-07-12] MEDS: Phospha 250 Neutral tab ORAL SCH (17:10)
[2016-07-12] MEDS: Lactulose 20gm/30ml UDC ORAL SCH (17:21)
--- NOTE | 2016-07-12 19:40 | Cardiology Progress Note ---
Assessment/Plan Assessment/Plan afib (not clear if chronic recurrent or permananet ) tachy dvt acute depsite eliquis dm htn cad per report hypothyroid TR pulm htn hypercalcemia resolved renal insuf ecoli uti agree with heparin likely will need to be e Coumadin due to failure of eliquis add cardizem for hr control echo showed good lv function but sig tr and pulm htn of mod degree bp is fine now on cardizem for hr control since lv function is fine i do not think she will need acei will used ccb for hr contorl cr i better tele personally reviewed ekg noted repeat trop normal electoyte repletion may switch to cardizem cd heparin couamdin crossover Subjective Cardiovascular: Denies: chest pain, lightheadedness, palpitations Respiratory: Denies: orthopnea, shortness of breath Gastrointestinal/Abdominal: Denies: abdominal pain Genitourinary: Denies: no symptoms Subjective feels better to day Objective Last 24 Hour Vital Signs Date Time Temp Pulse Resp B/P Pulse Ox O2 Delivery O2 Flow Rate FiO2 07/12/16 16:00 86 07/12/16 16:00 97.3 69 20 123/63 100 Room Air 07/12/16 14:02 91 130/74 07/12/16 12:00 97.3 91 17 130/74 99 Room Air 07/12/16 11:27 88 07/12/16 08:10 96 07/12/16 08:00 96.7 91 17 126/71 95 Room Air 07/12/16 06:17 89 123/94 07/12/16 04:00 97.3 95 20 123/94 98 Room Air 07/12/16 04:00 89 07/12/16 00:25 97.2 92 20 131/75 100 Room Air 07/12/16 00:00 91 07/11/16 22:52 100 113/60 07/11/16 20:00 97.8 100 20 113/60 97 Room Air 07/11/16 20:00 103 General Appearance: no apparent distress, alert Neck: supple Cardiovascular: irregularly irregular Respiratory/Chest: chest wall non-tender, lungs clear, normal breath sounds Abdomen: non tender, soft Extremities: moderate edema Intake and Output 07/11/16 07/12/16 19:00 07:00 Intake Total 637.728 ml 1040.143 ml Output Total 300 ml 1000 ml Balance 337.728 ml 40.143 ml Intake Oral 120 ml IV Total 517.728 ml 1040.143 ml Output Urine Total 300 ml 1000 ml Laboratory Tests Test 07/11/16 20:50 07/12/16 06:20 07/12/16 07:00 07/12/16 14:30 Activated Partial Thromboplast Time 60 SEC (23-33) H 51 SEC (23-33) H 131 SEC (23-33) H Ionized Calcium (Measured) 1.22 mmol/L (1.10-1.35) Troponin I < 0.30 ng/mL (<=0.30) White Blood Count 6.1 K/UL (4.8-10.8) Red Blood Count 3.96 M/UL (4.20-5.40) L Hemoglobin 12.4 G/DL (12.0-16.0) Hematocrit 38.0 % (37.0-47.0) Mean Corpuscular Volume 96 FL (80-99) Mean Corpuscular Hemoglobin 31.3 PG (27.0-31.0) H Mean Corpuscular Hemoglobin Concent 32.6 G/DL (32.0-36.0) Red Cell Distribution Width 13.0 % (11.6-14.8) Platelet Count 147 K/UL (150-450) L Mean Platelet Volume 11.3 FL (6.5-10.1) H Neutrophils (%) (Auto) 53.9 % (45.0-75.0) Lymphocytes (%) (Auto) 36.5 % (20.0-45.0) Monocytes (%) (Auto) 6.8 % (1.0-10.0) Eosinophils (%) (Auto) 1.6 % (0.0-3.0) Basophils (%) (Auto) 1.2 % (0.0-2.0) Prothrombin Time 11.5 SEC (9.30-11.50) Prothromb Time International Ratio 1.1 (0.9-1.1) Sodium Level 139 mEQ/L (135-145) Potassium Level 2.8 mEQ/L (3.4-4.9) L Chloride Level 99 mEQ/L (98-107) Carbon Dioxide Level 26 mEQ/L (20-30) Anion Gap 14 (5-15) Blood Urea Nitrogen 18 mg/dL (7-23) Creatinine 0.7 mg/dL (0.5-0.9) # Estimat Glomerular Filtration Rate mL/min (>60) Glucose Level 100 mg/dL (74-106) Hemoglobin A1c 5.2 % (< 6.0) Uric Acid 6.4 mg/dL (3.0-7.5) Calcium Level 10.0 mg/dL (8.6-10.2) Phosphorus Level 2.3 mg/dL (2.5-4.8) L Magnesium Level 1.5 mg/dL (1.7-2.5) L Total Bilirubin 0.7 mg/dL (0.0-1.2) Gamma Glutamyl Transpeptidase 119 U/L (5-36) H Aspartate Amino Transf (AST/SGOT) 33 U/L (5-40) Alanine Aminotransferase (ALT/SGPT) 22 U/L (3-33) Alkaline Phosphatase 83 U/L (35-104) Total Creatine Kinase 25 U/L (26-140) L C-Reactive Protein, Quantitative < 0.3 mg/dL (< 0.5) Pro-B-Type Natriuretic Peptide 382 pg/mL (0-450) Total Protein 6.4 g/dL (6.6-8.7) L Albumin 3.3 g/dL (3.5-5.2) L Globulin 3.1 g/dL Albumin/Globulin Ratio 1.0 (1.0-2.7) Triglycerides Level 94 mg/dL (< 150) Cholesterol Level 120 mg/dL (< 200) LDL Cholesterol 57 mg/dL (60-99) L HDL Cholesterol 44 mg/dL (> 60) Cholesterol/HDL Ratio 2.7 (3.3-4.4) L Urine Eosinophils None seen Microbiology Date/Time Source Procedure Growth Status 07/10/16 14:35 Urine,Clean Catch Urine Culture - Preliminary Gram Negative Bacillus 1 Resulted SELENE CRUZ Jul 12, 2016 19:40
--- NOTE | 2016-07-12 19:51 | Cardiology Report ---
APPROVED REPORT EKG Measurement Heart [id number] Poor data quality, interpretation may be adversely affected Atrial fibrillation with premature ventricular or aberrantly conducted complexes Abnormal ECG
[2016-07-12 20:00] VITALS: BP 107/87
[2016-07-12] MEDS ORDERED: Miralax 17gm pkt ORAL SCH (21:00)
[2016-07-13] VITALS: BP 154/93
[2016-07-13] MEDS: Diltiazem 25mg/5ml IV PRN (01:07)
[2016-07-13] MEDS ORDERED: Heparin 5000 units/ml inj IV ONE (01:45)
[2016-07-13] MEDS: Heparin 25,000u/D5W 500ml 500 ML IV SCH ×2 (02:25→11:13)
[2016-07-13 04:10] VITALS: BP 145/72
[2016-07-13] MEDS: Levothyroxine 125mcg tab ORAL SCH (06:14)
[2016-07-13 08:00] VITALS: BP 134/79
[2016-07-13 08:41] LABS: BASOPHILS % (AUTO) 0.8 % (0.0-2.0); EOSINOPHILS % (AUTO) 1.8 % (0.0-3.0); LYMPHOCYTES % (AUTO) 26.8 % (20.0-45.0); MEAN CORPUSCULAR HEMOGLOBIN 30.6 PG (27.0-31.0); MEAN CORPUSCULAR HGB CONC 31.6 G/DL (32.0-36.0); MEAN CORPUSCULAR VOLUME 97 FL (80-99); MEAN PLATELET VOLUME 11.1 FL (6.5-10.1); MONOCYTES % (AUTO) 7.1 % (1.0-10.0); NEUTROPHILS % (AUTO) 63.6 % (45.0-75.0); PLATELET COUNT 152 K/UL (150-450); RED BLOOD COUNT 4.33 M/UL (4.20-5.40); RED CELL DISTRIBUTION WIDTH 12.8 % (11.6-14.8); WHITE BLOOD COUNT 6.6 K/UL (4.8-10.8)
[2016-07-13 08:57] LABS: ALANINE AMINOTRANSFERASE 25 U/L (3-33); ANION GAP 12 (5-15); ASPARTATE AMINO TRANSFERASE 37 U/L (5-40); CALCIUM 10.3 mg/dL (8.6-10.2); CARBON DIOXIDE 26 mEQ/L (20-30); CHLORIDE 100 mEQ/L (98-107); CREATININE 0.7 mg/dL (0.5-0.9); HEMOLYSIS 23; POTASSIUM 4.3 mEQ/L (3.4-4.9); SODIUM 138 mEQ/L (135-145); TOTAL PROTEIN 6.7 g/dL (6.6-8.7)
[2016-07-13 09:09] LABS: CRP QUANT < 0.3 mg/dL (< 0.5); MAGNESIUM 1.8 mg/dL (1.7-2.5); PHOSPHORUS 2.4 mg/dL (2.5-4.8)
[2016-07-13] MEDS: Lactulose 20gm/30ml UDC ORAL SCH ×2 (09:25→18:16)
[2016-07-13] MEDS: Phospha 250 Neutral tab ORAL SCH ×2 (09:26→18:18)
[2016-07-13] MEDS: Vitamin A&D Oint 2oz Tube TOPIC SCH ×2 (09:26→22:16)
[2016-07-13 09:27] LABS: CORTISOL LC 25.4 ug/dL (.)
[2016-07-13 09:55] LABS: INR 1.9 (0.9-1.1); PROTHROMBIN TIME 19.2 SEC (9.30-11.50)
--- NOTE | 2016-07-13 10:22 | Cardiology Progress Note ---
Assessment/Plan Assessment/Plan afib (not clear if chronic recurrent or permananet ) tachy dvt acute depsite eliquis dm htn cad per report hypothyroid TR pulm htn hypercalcemia renal insuf ecoli uti agree with heparin likely will need to be e Coumadin due to failure of eliquis on cardizem for hr control echo showed good lv function but sig tr and pulm htn of mod degree bp is fine now on cardizem for hr control since lv function is fine i do not think she will need acei will used ccb for hr contorl cr i better tele personally reviewed ekg noted repeat trop normal electrolyte better but mg is low will supplement may switch to cardizem cd 120 mg dialy on dc heparin Coumadin crossover Subjective Subjective feels better to day Objective Last 24 Hour Vital Signs Date Time Temp Pulse Resp B/P Pulse Ox O2 Delivery O2 Flow Rate FiO2 07/13/16 08:00 98.4 88 17 134/79 97 Room Air 07/13/16 06:14 95 137/73 07/13/16 04:10 97.8 102 20 145/72 97 Room Air 07/13/16 04:00 115 07/13/16 01:07 122 154/73 07/13/16 00:00 97.7 122 20 154/93 98 Room Air 07/13/16 00:00 102 07/12/16 22:48 86 107/87 07/12/16 20:00 86 18 107/87 98 Room Air 07/12/16 20:00 106 07/12/16 16:00 86 07/12/16 16:00 97.3 69 20 123/63 100 Room Air 07/12/16 14:02 91 130/74 07/12/16 12:00 97.3 91 17 130/74 99 Room Air 07/12/16 11:27 88 Intake and Output 07/12/16 07/13/16 19:00 07:00 Intake Total 1102.484 ml 156.61 ml Output Total 575 ml 0 ml Balance 527.484 ml 156.61 ml Intake Oral 570 ml IV Total 532.484 ml 156.61 ml Output Urine Total 575 ml 0 ml Laboratory Tests Test 07/12/16 14:30 07/12/16 23:20 07/13/16 04:00 07/13/16 08:30 Activated Partial Thromboplast Time 131 SEC (23-33) H 51 SEC (23-33) H 108 SEC (23-33) H Urine Eosinophils Pending White Blood Count 6.6 K/UL (4.8-10.8) Red Blood Count 4.33 M/UL (4.20-5.40) Hemoglobin 13.2 G/DL (12.0-16.0) Hematocrit 41.9 % (37.0-47.0) Mean Corpuscular Volume 97 FL (80-99) Mean Corpuscular Hemoglobin 30.6 PG (27.0-31.0) Mean Corpuscular Hemoglobin Concent 31.6 G/DL (32.0-36.0) L Red Cell Distribution Width 12.8 % (11.6-14.8) Platelet Count 152 K/UL (150-450) Mean Platelet Volume 11.1 FL (6.5-10.1) H Neutrophils (%) (Auto) 63.6 % (45.0-75.0) Lymphocytes (%) (Auto) 26.8 % (20.0-45.0) Monocytes (%) (Auto) 7.1 % (1.0-10.0) Eosinophils (%) (Auto) 1.8 % (0.0-3.0) Basophils (%) (Auto) 0.8 % (0.0-2.0) Prothrombin Time 19.2 SEC (9.30-11.50) H Prothromb Time International Ratio 1.9 (0.9-1.1) H Sodium Level 138 mEQ/L (135-145) Potassium Level 4.3 mEQ/L (3.4-4.9) # Chloride Level 100 mEQ/L (98-107) Carbon Dioxide Level 26 mEQ/L (20-30) Anion Gap 12 (5-15) Blood Urea Nitrogen 6 mg/dL (7-23) L Creatinine 0.7 mg/dL (0.5-0.9) Estimat Glomerular Filtration Rate mL/min (>60) Glucose Level 109 mg/dL (74-106) H Uric Acid 5.0 mg/dL (3.0-7.5) Calcium Level 10.3 mg/dL (8.6-10.2) H Phosphorus Level 2.4 mg/dL (2.5-4.8) L Magnesium Level 1.8 mg/dL (1.7-2.5) Total Bilirubin 0.6 mg/dL (0.0-1.2) Aspartate Amino Transf (AST/SGOT) 37 U/L (5-40) Alanine Aminotransferase (ALT/SGPT) 25 U/L (3-33) Alkaline Phosphatase 87 U/L (35-104) C-Reactive Protein, Quantitative < 0.3 mg/dL (< 0.5) Pro-B-Type Natriuretic Peptide 1273 pg/mL (0-450) H Total Protein 6.7 g/dL (6.6-8.7) Albumin 3.4 g/dL (3.5-5.2) L Globulin 3.3 g/dL Albumin/Globulin Ratio 1.0 (1.0-2.7) Microbiology Date/Time Source Procedure Growth Status 07/10/16 14:35 Urine,Clean Catch Urine Culture - Preliminary Escherichia Coli Streptococcus Species Resulted SELENE CRUZ Jul 13, 2016 10:22
[2016-07-13 12:00] VITALS: BP 140/72
--- NOTE | 2016-07-13 12:11 | Diagnostic Imaging Report ---
APPROVED REPORT CPT Code: 17806 Present Symptoms Comments: Swelling Technically difficult study due to vessel depth (distal thigh area). RIGHT LEG: Venous imaging reveals a patent deep venous system. There is no evidence of thrombus within the femoral, popliteal or tibial segments. The greater saphenous vein is also within normal limits. Doppler indicates normal spontaneous flow within these segments. LEFT LEG: Venous imaging reveals acute thrombus in the common femoral to superficial femoral veins. Remainder of the deep venous system within normal limits. No evidence of thrombus in the popliteal or calf veins. Greater saphenous vein also within normal limits. DR. Baker was notified of abnormal results at 1630 hours.
--- NOTE | 2016-07-13 12:46 | General Progress Note ---
Assessment/Plan Status: stable - from renal stand point Assessment/Plan Renal failure, likely acute on chronic factors; DM , HTN , ? Medications ( NSAIDs) then superimposed dehydration - Lower abdominal pain most likely secondary to the urinary tract infection. - Left eye blindness. - Diabetes type 2. - Atrial fibrillation with rapid ventricular rate. - Hypertension. - Functional quadriplegia. - Decubitus ulcer. - Bilateral lower extremity edema with a deep venous thrombosis. - Venous stasis of bilateral lower extremities with hyperpigmentation. - Cognitive communication deficit. - HypoThyroidism Plan: K and Phos and Mag supplement as needed Stop all NSAIDs urine studies- monitor renal parameters slow hydrate watch for CHF symptoms per orders Subjective ROS Limited/Unobtainable: No Allergies: Coded Allergies: CODEINE (Verified Allergy, Intermediate, 07/09/16) MORPHINE (Verified Allergy, Intermediate, 07/09/16) PENICILLINS (Verified Allergy, Intermediate, 07/09/16) Objective Last 24 Hour Vital Signs Date Time Temp Pulse Resp B/P Pulse Ox O2 Delivery O2 Flow Rate FiO2 07/13/16 12:00 98.0 103 17 140/72 98 Room Air 07/13/16 08:00 98.4 88 17 134/79 97 Room Air 07/13/16 08:00 91 07/13/16 06:14 95 137/73 07/13/16 04:10 97.8 102 20 145/72 97 Room Air 07/13/16 04:00 115 07/13/16 01:07 122 154/73 07/13/16 00:00 97.7 122 20 154/93 98 Room Air 07/13/16 00:00 102 07/12/16 22:48 86 107/87 07/12/16 20:00 86 18 107/87 98 Room Air 07/12/16 20:00 106 07/12/16 16:00 86 07/12/16 16:00 97.3 69 20 123/63 100 Room Air 07/12/16 14:02 91 130/74 Intake and Output 07/12/16 07/13/16 19:00 07:00 Intake Total 1102.484 ml 300.312 ml Output Total 575 ml 0 ml Balance 527.484 ml 300.312 ml Intake Oral 570 ml IV Total 532.484 ml 300.312 ml Output Urine Total 575 ml 0 ml Laboratory Tests 07/12/16 14:30: Activated Partial Thromboplast Time 131H 07/12/16 23:20: Activated Partial Thromboplast Time 51H 07/13/16 04:00: Urine Eosinophils None seen 07/13/16 08:30: Activated Partial Thromboplast Time 108H, White Blood Count 6.6, Red Blood Count 4.33, Hemoglobin 13.2, Hematocrit 41.9, Mean Corpuscular Volume 97, Mean Corpuscular Hemoglobin 30.6, Mean Corpuscular Hemoglobin Concent 31.6L, Red Cell Distribution Width 12.8, Platelet Count 152, Mean Platelet Volume 11.1H, Neutrophils (%) (Auto) 63.6, Lymphocytes (%) (Auto) 26.8, Monocytes (%) (Auto) 7.1, Eosinophils (%) (Auto) 1.8, Basophils (%) (Auto) 0.8, Prothrombin Time 19.2H, Prothromb Time International Ratio 1.9H, Sodium Level 138, Potassium Level 4.3#, Chloride Level 100, Carbon Dioxide Level 26, Anion Gap 12, Blood Urea Nitrogen 6L, Creatinine 0.7, Estimat Glomerular Filtration Rate , Glucose Level 109H, Uric Acid 5.0, Calcium Level 10.3H, Phosphorus Level 2.4L, Magnesium Level 1.8, Total Bilirubin 0.6, Aspartate Amino Transf (AST/SGOT) 37, Alanine Aminotransferase (ALT/SGPT) 25, Alkaline Phosphatase 87, C-Reactive Protein, Quantitative < 0.3, Pro-B-Type Natriuretic Peptide 1273H, Total Protein 6.7, Albumin 3.4L, Globulin 3.3, Albumin/Globulin Ratio 1.0 Height (Feet): 5 Height (Inches): 5.00 Weight (Pounds): 160 General Appearance: no apparent distress, other - feels stronger Objective other physical exam not changed YOGESH PERRY Jul 13, 2016 12:46
[2016-07-13] MEDS ORDERED: Nitroglycerin Subl 0.4mg tab (Bottle Of 25) SL PRN (13:30)
[2016-07-13] MEDS ORDERED: Diltiazem 25mg/5ml IV PRN (14:00)
[2016-07-13] MEDS: Cefepime HCl 1 GM in D5W 55 ML IVPB SCH (15:15)
[2016-07-13 16:00] VITALS: BP 134/74
--- NOTE | 2016-07-13 17:03 | Internal Med Progress Note ---
Subjective Date of Service: Jul 13, 2016 Physician Name MichelHoracio castillo Attending Physician Darvin Farah MD Current Medications Medications (Trade) Dose Ordered Sig/Gt Route PRN Reason Start Time Stop Time Status Last Admin Dose Admin Acetaminophen (Tylenol) 650 mg Q4H PRN ORAL fever 07/13/16 16:45 08/12/16 16:44 Cefepime HCl 1 gm/ Dextrose 55 ml @ 110 mls/hr Q24H IVPB 07/13/16 14:00 07/19/16 13:59 07/13/16 15:15 Dextrose (Dextrose 50%) STAT PRN IV Hypoglycemia 07/13/16 20:45 08/12/16 20:44 Diltiazem HCl (Cardizem) 30 mg EVERY 8 HOURS ORAL 07/13/16 14:00 08/12/16 13:59 Heparin Sodium/ Dextrose (Heparin) 500 ml @ 17.418 mls/ hr adjust per protocol IV 07/13/16 14:00 08/12/16 13:59 Lactulose (Cephulac) 30 gm THREE TIMES A DAY ORAL 07/13/16 18:00 08/12/16 17:59 Levothyroxine Sodium (Synthroid) 125 mcg ACBREAKFAST ORAL 07/14/16 06:30 08/13/16 06:29 Mineral Oil (Fleet's Mineral Oil Enema) 133 ml EVERY OTHER DAY RECTAL 07/14/16 09:00 08/13/16 08:59 Nitroglycerin (Ntg) 0.4 mg Q5M X 3 DOSES PRN SL Prn Chest Pain 07/13/16 13:30 08/12/16 13:29 Ondansetron HCl (Zofran) 4 mg Q6H PRN IVP Nausea & Vomiting 07/13/16 14:45 08/12/16 14:44 Phosphorus (Phospha 250 Neutral) 500 mg THREE TIMES A DAY ORAL 07/13/16 18:00 07/14/16 09:01 Polyethylene Glycol (Miralax) 17 gm BEDTIME ORAL 07/13/16 21:00 08/12/16 20:59 Polyethylene Glycol (Miralax) 17 gm HSPRN PRN ORAL Constipation 07/13/16 20:45 08/12/16 20:44 Sennosides (Senokot) 8.6 mg DAILY ORAL 07/14/16 09:00 08/13/16 08:59 Temazepam (Restoril) 15 mg HSPRN PRN ORAL Insomnia 07/13/16 20:45 07/20/16 20:44 Vitamin A/Vitamin D (A & D Oint) 1 applic EVERY 12 HOURS TOPIC 07/13/16 21:00 08/12/16 20:59 Warfarin Sodium (Coumadin per pharmacy) 1 ea DAILY PRN MISC Per rx protocol 07/14/16 09:00 08/13/16 08:59 Allergies: Coded Allergies: CODEINE (Verified Allergy, Intermediate, 07/09/16) MORPHINE (Verified Allergy, Intermediate, 07/09/16) PENICILLINS (Verified Allergy, Intermediate, 07/09/16) ROS Limited/Unobtainable: Yes Subjective 86 YO F admitted with abdominal pain, now urinary tract infection. Now acute deep venous thrombosis left leg, despite eliquis therapy. Cover for Int Med-Dr Farah. Objective Last Vital Signs Date Time Temp Pulse Resp B/P Pulse Ox O2 Delivery O2 Flow Rate FiO2 07/13/16 14:00 94 118/57 07/13/16 12:00 98.0 17 98 Room Air General Appearance: WD/WN, no apparent distress EENT: PERRL/EOMI, normal ENT inspection Neck: non-tender, normal alignment, supple, normal inspection, abnormal alignment Cardiovascular: normal rate, regular rhythm, no gallop/murmur, no JVD Respiratory/Chest: chest wall non-tender, lungs clear, normal breath sounds, no respiratory distress, no accessory muscle use Abdomen: no organomegaly, no mass, decreased bowel sounds, tender Extremities: normal range of motion, non-tender Edema: trace edema Skin: normal pigmentation, warm/dry Laboratory Tests Test 07/12/16 23:20 07/13/16 04:00 07/13/16 08:30 Activated Partial Thromboplast Time 51 SEC (23-33) H 108 SEC (23-33) H Urine Eosinophils None seen White Blood Count 6.6 K/UL (4.8-10.8) Red Blood Count 4.33 M/UL (4.20-5.40) Hemoglobin 13.2 G/DL (12.0-16.0) Hematocrit 41.9 % (37.0-47.0) Mean Corpuscular Volume 97 FL (80-99) Mean Corpuscular Hemoglobin 30.6 PG (27.0-31.0) Mean Corpuscular Hemoglobin Concent 31.6 G/DL (32.0-36.0) L Red Cell Distribution Width 12.8 % (11.6-14.8) Platelet Count 152 K/UL (150-450) Mean Platelet Volume 11.1 FL (6.5-10.1) H Neutrophils (%) (Auto) 63.6 % (45.0-75.0) Lymphocytes (%) (Auto) 26.8 % (20.0-45.0) Monocytes (%) (Auto) 7.1 % (1.0-10.0) Eosinophils (%) (Auto) 1.8 % (0.0-3.0) Basophils (%) (Auto) 0.8 % (0.0-2.0) Prothrombin Time 19.2 SEC (9.30-11.50) H Prothromb Time International Ratio 1.9 (0.9-1.1) H Sodium Level 138 mEQ/L (135-145) Potassium Level 4.3 mEQ/L (3.4-4.9) # Chloride Level 100 mEQ/L (98-107) Carbon Dioxide Level 26 mEQ/L (20-30) Anion Gap 12 (5-15) Blood Urea Nitrogen 6 mg/dL (7-23) L Creatinine 0.7 mg/dL (0.5-0.9) Estimat Glomerular Filtration Rate mL/min (>60) Glucose Level 109 mg/dL (74-106) H Uric Acid 5.0 mg/dL (3.0-7.5) Calcium Level 10.3 mg/dL (8.6-10.2) H Phosphorus Level 2.4 mg/dL (2.5-4.8) L Magnesium Level 1.8 mg/dL (1.7-2.5) Total Bilirubin 0.6 mg/dL (0.0-1.2) Aspartate Amino Transf (AST/SGOT) 37 U/L (5-40) Alanine Aminotransferase (ALT/SGPT) 25 U/L (3-33) Alkaline Phosphatase 87 U/L (35-104) C-Reactive Protein, Quantitative < 0.3 mg/dL (< 0.5) Pro-B-Type Natriuretic Peptide 1273 pg/mL (0-450) H Total Protein 6.7 g/dL (6.6-8.7) Albumin 3.4 g/dL (3.5-5.2) L Globulin 3.3 g/dL Albumin/Globulin Ratio 1.0 (1.0-2.7) Intake and Output 07/12/16 07/13/16 19:00 07:00 Intake Total 1102.484 ml 300.312 ml Output Total 575 ml 0 ml Balance 527.484 ml 300.312 ml Intake Oral 570 ml IV Total 532.484 ml 300.312 ml Output Urine Total 575 ml 0 ml Assessment/Plan Problem List: (1) HTN (hypertension) Assessment & Plan: Continue diltiazem (2) Decubitus ulcer (3) Alzheimer's dementia (4) Renal failure (5) Abdominal pain (6) DVT (deep venous thrombosis) Assessment & Plan: Acute left femoral despite eliquis. Start coumadin per pharmacy protocol. (7) UTI (urinary tract infection) Assessment & Plan: E. Coli and streptococcus. See ID note. Cont cefepime (8) Atrial fibrillation with rapid ventricular response (9) Hypothyroidism Assessment & Plan: Cont levoxyl Status: progressing Assessment/Plan Discharge planning: longterm facility HORACIO MICHEL Jul 13, 2016 17:03
[2016-07-13 19:00] VITALS: BP 130/72
[2016-07-13] MEDS ORDERED: Miralax 17gm pkt ORAL PRN (20:45)
--- NOTE | 2016-07-13 21:59 | Infectious Diseases Prog Note ---
Assessment/Plan Assessment/Plan ASSESSMENT AND PLAN: 1. e.coli uti and pseudomonas uti, now with strep uti - cefepime - day # 2, add vancomycin - check strep identification - clinically stable 2. Atrial fibrillation with rapid ventricular response. 3. Acute kidney injury on chronic renal failure. 4. Dehydration. 5. Hyponatremia. 6. Hypothyroidism. 7. Hyperuricemia. 8. Hypertension. 9. Diabetes. 10. Continue blood pressure treatment per primary consultants. 11. Deep venous thrombosis. 12. Coronary artery disease. 13. Tachycardia. 14. Atrial fibrillation. 15. Allergies to codeine, morphine, and penicillin. 16. mar noted 17. Case discussed with RN. 18. Family history noncontributory. 19. Social history negative for smoking, alcohol, or drug abuse. 20. Notes and records reviewed. 21. Continue treatment per primary and consultants. 22. Skin care per protocol. 23. Treatment for edema. 24. Case discussed with the patient. Subjective Constitutional: Denies: fever Respiratory: Denies: shortness of breath Cardiovascular: Denies: chest pain Gastrointestinal/Abdominal: Denies: diarrhea, nausea, vomiting Genitourinary: Reports: other - + pena Neurologic: Denies: headache Psychiatric: Denies: depression Skin: Denies: rash Hematologic: Denies: bleeding Musculoskeletal: Denies: pain Allergies: Coded Allergies: CODEINE (Verified Allergy, Intermediate, 07/09/16) MORPHINE (Verified Allergy, Intermediate, 07/09/16) PENICILLINS (Verified Allergy, Intermediate, 07/09/16) Objective Vital Signs Last 24 Hour Vital Signs Date Time Temp Pulse Resp B/P Pulse Ox O2 Delivery O2 Flow Rate FiO2 07/13/16 19:00 97.3 84 18 130/72 97 Room Air 07/13/16 16:00 97.6 87 18 134/74 99 Room Air 07/13/16 14:00 94 118/57 07/13/16 12:00 98.0 103 17 140/72 98 Room Air 07/13/16 08:00 98.4 88 17 134/79 97 Room Air 07/13/16 08:00 91 07/13/16 06:14 95 137/73 07/13/16 04:10 97.8 102 20 145/72 97 Room Air 07/13/16 04:00 115 07/13/16 01:07 122 154/73 07/13/16 00:00 97.7 122 20 154/93 98 Room Air 07/13/16 00:00 102 07/12/16 22:48 86 107/87 Height (Feet): 5 Height (Inches): 5.00 Weight (Pounds): 160 General Appearance: no acute distress HEENT: normocephalic, atraumatic, anicteric, mucous membranes moist, PERRL, EOMI, pharynx normal, supple, no JVD Respiratory/Chest: lungs clear, normal breath sounds, no respiratory distress, no accessory muscle use Cardiovascular: normal rate, regular rhythm, no gallop/murmur, no JVD Abdomen: normal bowel sounds, soft, non tender, no organomegaly, non distended Genitourinary: other - + pena - urine slt cloudy Extremities: no cyanosis Skin: no rash Neurologic/Psychiatric: sign out clerk II-XII grossly normal, alert, oriented x 3, responsive Lymphatic: no neck adenopathy Musculoskeletal: no effusion Objective chest x-ray - negative, nad, no consolidation (reviewed) Microbiology Date/Time Source Procedure Growth Status 07/09/16 17:54 Nasal Nares MRSA Culture - Final NO METHICILLIN RESISTANT STAPH AUREUS... Complete 07/10/16 14:35 Urine,Clean Catch Urine Culture - Preliminary Escherichia Coli Streptococcus Species Resulted 07/09/16 17:54 Rectum VRE Culture - Final NO VANCOMYCIN RESISTANT ENTEROCOCCUS ... Complete Laboratory Tests Test 07/12/16 23:20 07/13/16 04:00 07/13/16 08:30 07/13/16 16:50 Activated Partial Thromboplast Time 51 SEC (23-33) H 108 SEC (23-33) H 89 SEC (23-33) H Urine Eosinophils None seen White Blood Count 6.6 K/UL (4.8-10.8) Red Blood Count 4.33 M/UL (4.20-5.40) Hemoglobin 13.2 G/DL (12.0-16.0) Hematocrit 41.9 % (37.0-47.0) Mean Corpuscular Volume 97 FL (80-99) Mean Corpuscular Hemoglobin 30.6 PG (27.0-31.0) Mean Corpuscular Hemoglobin Concent 31.6 G/DL (32.0-36.0) L Red Cell Distribution Width 12.8 % (11.6-14.8) Platelet Count 152 K/UL (150-450) Mean Platelet Volume 11.1 FL (6.5-10.1) H Neutrophils (%) (Auto) 63.6 % (45.0-75.0) Lymphocytes (%) (Auto) 26.8 % (20.0-45.0) Monocytes (%) (Auto) 7.1 % (1.0-10.0) Eosinophils (%) (Auto) 1.8 % (0.0-3.0) Basophils (%) (Auto) 0.8 % (0.0-2.0) Prothrombin Time 19.2 SEC (9.30-11.50) H Prothromb Time International Ratio 1.9 (0.9-1.1) H Sodium Level 138 mEQ/L (135-145) Potassium Level 4.3 mEQ/L (3.4-4.9) # Chloride Level 100 mEQ/L (98-107) Carbon Dioxide Level 26 mEQ/L (20-30) Anion Gap 12 (5-15) Blood Urea Nitrogen 6 mg/dL (7-23) L Creatinine 0.7 mg/dL (0.5-0.9) Estimat Glomerular Filtration Rate mL/min (>60) Glucose Level 109 mg/dL (74-106) H Uric Acid 5.0 mg/dL (3.0-7.5) Calcium Level 10.3 mg/dL (8.6-10.2) H Phosphorus Level 2.4 mg/dL (2.5-4.8) L Magnesium Level 1.8 mg/dL (1.7-2.5) Total Bilirubin 0.6 mg/dL (0.0-1.2) Aspartate Amino Transf (AST/SGOT) 37 U/L (5-40) Alanine Aminotransferase (ALT/SGPT) 25 U/L (3-33) Alkaline Phosphatase 87 U/L (35-104) C-Reactive Protein, Quantitative < 0.3 mg/dL (< 0.5) Pro-B-Type Natriuretic Peptide 1273 pg/mL (0-450) H Total Protein 6.7 g/dL (6.6-8.7) Albumin 3.4 g/dL (3.5-5.2) L Globulin 3.3 g/dL Albumin/Globulin Ratio 1.0 (1.0-2.7) Current Medications Medications (Trade) Dose Ordered Sig/Gt Route PRN Reason Start Time Stop Time Status Last Admin Dose Admin Acetaminophen (Tylenol) 650 mg Q4H PRN ORAL fever 07/13/16 16:45 08/12/16 16:44 Cefepime HCl 1 gm/ Dextrose 55 ml @ 110 mls/hr Q24H IVPB 07/13/16 14:00 07/19/16 13:59 07/13/16 15:15 Dextrose (Dextrose 50%) STAT PRN IV Hypoglycemia 07/13/16 20:45 08/12/16 20:44 Diltiazem HCl (Cardizem) 30 mg EVERY 8 HOURS ORAL 07/13/16 14:00 08/12/16 13:59 Heparin Sodium/ Dextrose (Heparin) 500 ml @ 17.418 mls/ hr adjust per protocol IV 07/13/16 14:00 08/12/16 13:59 Lactulose (Cephulac) 30 gm THREE TIMES A DAY ORAL 07/13/16 18:00 08/12/16 17:59 07/13/16 18:16 Levothyroxine Sodium (Synthroid) 125 mcg ACBREAKFAST ORAL 07/14/16 06:30 08/13/16 06:29 Mineral Oil (Fleet's Mineral Oil Enema) 133 ml EVERY OTHER DAY RECTAL 07/14/16 09:00 08/13/16 08:59 Nitroglycerin (Ntg) 0.4 mg Q5M X 3 DOSES PRN SL Prn Chest Pain 07/13/16 13:30 08/12/16 13:29 Ondansetron HCl (Zofran) 4 mg Q6H PRN IVP Nausea & Vomiting 07/13/16 14:45 08/12/16 14:44 Phosphorus (Phospha 250 Neutral) 500 mg THREE TIMES A DAY ORAL 07/13/16 18:00 07/14/16 09:01 07/13/16 18:18 Polyethylene Glycol (Miralax) 17 gm BEDTIME ORAL 07/13/16 21:00 08/12/16 20:59 Polyethylene Glycol (Miralax) 17 gm HSPRN PRN ORAL Constipation 07/13/16 20:45 08/12/16 20:44 Sennosides (Senokot) 8.6 mg DAILY ORAL 07/14/16 09:00 08/13/16 08:59 Temazepam (Restoril) 15 mg HSPRN PRN ORAL Insomnia 07/13/16 20:45 07/20/16 20:44 Vitamin A/Vitamin D (A & D Oint) 1 applic EVERY 12 HOURS TOPIC 07/13/16 21:00 08/12/16 20:59 Warfarin Sodium (Coumadin per pharmacy) 1 ea DAILY PRN MISC Per rx protocol 07/14/16 09:00 08/13/16 08:59 WISAM LAURA Jul 13, 2016 21:59
[2016-07-13] MEDS: Miralax 17gm pkt ORAL SCH (22:14)
--- NOTE | 2016-07-13 22:32 | Pulmonology Progress Note ---
Assessment/Plan Problems: (1) Atrial fibrillation with rapid ventricular response (2) DVT (deep venous thrombosis) (3) UTI (urinary tract infection) Assessment/Plan on heparin drip and coumadine f/u pt, ptt check sensitivity of urine organism heart rate controlled med/surg same antibiotics all labs/ meds reviewed Subjective ROS Limited/Unobtainable: No Interval Events: no new complains Allergies: Coded Allergies: CODEINE (Verified Allergy, Intermediate, 07/09/16) MORPHINE (Verified Allergy, Intermediate, 07/09/16) PENICILLINS (Verified Allergy, Intermediate, 07/09/16) Objective Last 24 Hour Vital Signs Date Time Temp Pulse Resp B/P Pulse Ox O2 Delivery O2 Flow Rate FiO2 07/13/16 22:14 84 130/72 07/13/16 19:00 97.3 84 18 130/72 97 Room Air 07/13/16 16:00 97.6 87 18 134/74 99 Room Air 07/13/16 14:00 94 118/57 07/13/16 12:00 98.0 103 17 140/72 98 Room Air 07/13/16 08:00 98.4 88 17 134/79 97 Room Air 07/13/16 08:00 91 07/13/16 06:14 95 137/73 07/13/16 04:10 97.8 102 20 145/72 97 Room Air 07/13/16 04:00 115 07/13/16 01:07 122 154/73 07/13/16 00:00 97.7 122 20 154/93 98 Room Air 07/13/16 00:00 102 07/12/16 22:48 86 107/87 Intake and Output 07/12/16 07/13/16 19:00 07:00 Intake Total 1102.484 ml 300.312 ml Output Total 575 ml 0 ml Balance 527.484 ml 300.312 ml Intake Oral 570 ml IV Total 532.484 ml 300.312 ml Output Urine Total 575 ml 0 ml Objective General Appearance: WD/WN HEENT: normocephalic, atraumatic Respiratory/Chest: chest wall non-tender, lungs clear Cardiovascular: normal peripheral pulses, normal rate Abdomen: normal bowel sounds, soft, non tender, Extremities: no cyanosis, no clubbing Skin: no rash Laboratory Tests 07/12/16 23:20: Activated Partial Thromboplast Time 51H 07/13/16 04:00: Urine Eosinophils None seen 07/13/16 08:30: Activated Partial Thromboplast Time 108H, White Blood Count 6.6, Red Blood Count 4.33, Hemoglobin 13.2, Hematocrit 41.9, Mean Corpuscular Volume 97, Mean Corpuscular Hemoglobin 30.6, Mean Corpuscular Hemoglobin Concent 31.6L, Red Cell Distribution Width 12.8, Platelet Count 152, Mean Platelet Volume 11.1H, Neutrophils (%) (Auto) 63.6, Lymphocytes (%) (Auto) 26.8, Monocytes (%) (Auto) 7.1, Eosinophils (%) (Auto) 1.8, Basophils (%) (Auto) 0.8, Prothrombin Time 19.2H, Prothromb Time International Ratio 1.9H, Sodium Level 138, Potassium Level 4.3#, Chloride Level 100, Carbon Dioxide Level 26, Anion Gap 12, Blood Urea Nitrogen 6L, Creatinine 0.7, Estimat Glomerular Filtration Rate , Glucose Level 109H, Uric Acid 5.0, Calcium Level 10.3H, Phosphorus Level 2.4L, Magnesium Level 1.8, Total Bilirubin 0.6, Aspartate Amino Transf (AST/SGOT) 37, Alanine Aminotransferase (ALT/SGPT) 25, Alkaline Phosphatase 87, C-Reactive Protein, Quantitative < 0.3, Pro-B-Type Natriuretic Peptide 1273H, Total Protein 6.7, Albumin 3.4L, Globulin 3.3, Albumin/Globulin Ratio 1.0 07/13/16 16:50: Activated Partial Thromboplast Time 89H Current Medications Medications (Trade) Dose Ordered Sig/Gt Route PRN Reason Start Time Stop Time Status Last Admin Dose Admin Acetaminophen (Tylenol) 650 mg Q4H PRN ORAL fever 07/13/16 16:45 08/12/16 16:44 Cefepime HCl 1 gm/ Dextrose 55 ml @ 110 mls/hr Q24H IVPB 07/13/16 14:00 07/19/16 13:59 07/13/16 15:15 Dextrose (Dextrose 50%) STAT PRN IV Hypoglycemia 07/13/16 20:45 08/12/16 20:44 Diltiazem HCl (Cardizem) 30 mg EVERY 8 HOURS ORAL 07/13/16 14:00 08/12/16 13:59 07/13/16 22:14 Heparin Sodium/ Dextrose (Heparin) 500 ml @ 17.418 mls/ hr adjust per protocol IV 07/13/16 14:00 08/12/16 13:59 Lactulose (Cephulac) 30 gm THREE TIMES A DAY ORAL 07/13/16 18:00 08/12/16 17:59 07/13/16 18:16 Levothyroxine Sodium (Synthroid) 125 mcg ACBREAKFAST ORAL 07/14/16 06:30 08/13/16 06:29 Mineral Oil (Fleet's Mineral Oil Enema) 133 ml EVERY OTHER DAY RECTAL 07/14/16 09:00 08/13/16 08:59 Nitroglycerin (Ntg) 0.4 mg Q5M X 3 DOSES PRN SL Prn Chest Pain 07/13/16 13:30 08/12/16 13:29 Ondansetron HCl (Zofran) 4 mg Q6H PRN IVP Nausea & Vomiting 07/13/16 14:45 08/12/16 14:44 Phosphorus (Phospha 250 Neutral) 500 mg THREE TIMES A DAY ORAL 07/13/16 18:00 07/14/16 09:01 07/13/16 18:18 Polyethylene Glycol (Miralax) 17 gm BEDTIME ORAL 07/13/16 21:00 08/12/16 20:59 07/13/16 22:14 Polyethylene Glycol (Miralax) 17 gm HSPRN PRN ORAL Constipation 07/13/16 20:45 08/12/16 20:44 Sennosides (Senokot) 8.6 mg DAILY ORAL 07/14/16 09:00 08/13/16 08:59 Temazepam (Restoril) 15 mg HSPRN PRN ORAL Insomnia 07/13/16 20:45 07/20/16 20:44 Vancomycin HCl (Vanco rx to dose) 1 ea DAILY PRN MISC Per rx protocol 07/13/16 22:00 08/12/16 21:59 UNV Vitamin A/Vitamin D (A & D Oint) 1 applic EVERY 12 HOURS TOPIC 07/13/16 21:00 08/12/16 20:59 07/13/16 22:16 Warfarin Sodium (Coumadin per pharmacy) 1 ea DAILY PRN MISC Per rx protocol 07/14/16 09:00 08/13/16 08:59 MIMI MCMILLAN Jul 13, 2016 22:32
[2016-07-14] VITALS: BP 132/86
[2016-07-14] MEDS ORDERED: Vancomycin 750mg Inj IVPB ONE (00:25)
[2016-07-14] MEDS: Vancomycin 750mg/D5W 275ml IVPB SCH ×4 (00:30→22:04)
[2016-07-14 04:00] VITALS: BP 131/76
[2016-07-14 04:03] LABS: BASOPHILS % (AUTO) 1.3 % (0.0-2.0); EOSINOPHILS % (AUTO) 3.9 % (0.0-3.0); LYMPHOCYTES % (AUTO) 39.3 % (20.0-45.0); MEAN CORPUSCULAR VOLUME 97 FL (80-99); NEUTROPHILS % (AUTO) 48.5 % (45.0-75.0); PLATELET COUNT 134 K/UL (150-450); RED CELL DISTRIBUTION WIDTH 13.3 % (11.6-14.8); WHITE BLOOD COUNT 6.6 K/UL (4.8-10.8)
[2016-07-14 04:24] LABS: ANION GAP 12 (5-15); CALCIUM 9.6 mg/dL (8.6-10.2); CARBON DIOXIDE 25 mEQ/L (20-30); CHLORIDE 101 mEQ/L (98-107); CREATININE 0.6 mg/dL (0.5-0.9); HEMOLYSIS 5; INR 2.3 (0.9-1.1); POTASSIUM 3.5 mEQ/L (3.4-4.9); SODIUM 138 mEQ/L (135-145)
[2016-07-14] MEDS: Levothyroxine 125mcg tab ORAL SCH (05:52)
[2016-07-14 08:09] VITALS: BP 130/69
[2016-07-14] MEDS: Phospha 250 Neutral tab ORAL SCH (08:28)
[2016-07-14] MEDS: Lactulose 20gm/30ml UDC ORAL SCH ×3 (08:30→17:17)
[2016-07-14] MEDS: Vitamin A&D Oint 2oz Tube TOPIC SCH ×2 (08:32→21:12)
[2016-07-14] MEDS ORDERED: Fleet's Mineral Oil Enema RECTAL SCH ×2 (09:00)
[2016-07-14 11:37] VITALS: BP 139/69
--- NOTE | 2016-07-14 12:53 | Internal Med Progress Note ---
Subjective Date of Service: Jul 14, 2016 Physician Name Da SilvaHoracio Attending Physician Darvin Farah MD Current Medications Medications (Trade) Dose Ordered Sig/Gt Route PRN Reason Start Time Stop Time Status Last Admin Dose Admin Acetaminophen (Tylenol) 650 mg Q4H PRN ORAL fever 07/13/16 16:45 08/12/16 16:44 Cefepime HCl 1 gm/ Dextrose 55 ml @ 110 mls/hr Q24H IVPB 07/13/16 14:00 07/19/16 13:59 07/13/16 15:15 Dextrose (Dextrose 50%) STAT PRN IV Hypoglycemia 07/13/16 20:45 08/12/16 20:44 Diltiazem HCl (Cardizem) 30 mg EVERY 8 HOURS ORAL 07/13/16 14:00 08/12/16 13:59 07/14/16 05:52 Heparin Sodium/ Dextrose (Heparin) 500 ml @ 17.418 mls/ hr adjust per protocol IV 07/13/16 14:00 08/12/16 13:59 Lactulose (Cephulac) 30 gm THREE TIMES A DAY ORAL 07/13/16 18:00 08/12/16 17:59 07/13/16 18:16 Levothyroxine Sodium (Synthroid) 125 mcg ACBREAKFAST ORAL 07/14/16 06:30 08/13/16 06:29 07/14/16 05:52 Mineral Oil (Fleet's Mineral Oil Enema) 133 ml EVERY OTHER DAY RECTAL 07/14/16 09:00 08/13/16 08:59 Nitroglycerin (Ntg) 0.4 mg Q5M X 3 DOSES PRN SL Prn Chest Pain 07/13/16 13:30 08/12/16 13:29 Ondansetron HCl (Zofran) 4 mg Q6H PRN IVP Nausea & Vomiting 07/13/16 14:45 08/12/16 14:44 Polyethylene Glycol (Miralax) 17 gm BEDTIME ORAL 07/13/16 21:00 08/12/16 20:59 07/13/16 22:14 Polyethylene Glycol (Miralax) 17 gm HSPRN PRN ORAL Constipation 07/13/16 20:45 08/12/16 20:44 Sennosides (Senokot) 8.6 mg DAILY ORAL 07/14/16 09:00 08/13/16 08:59 07/14/16 08:29 Temazepam (Restoril) 15 mg HSPRN PRN ORAL Insomnia 07/13/16 20:45 07/20/16 20:44 Vancomycin HCl 1 ea 1 ea DAILY PRN MISC Per rx protocol 07/13/16 22:00 08/12/16 21:59 Vancomycin HCl/ Dextrose (Vancomycin/D5W) 275 ml @ 183.708 mls/hr Q24H IVPB 07/13/16 23:00 07/18/16 22:59 07/14/16 00:30 Vitamin A/Vitamin D (A & D Oint) 1 applic EVERY 12 HOURS TOPIC 07/13/16 21:00 08/12/16 20:59 07/14/16 08:32 Warfarin Sodium (Coumadin per pharmacy) 1 ea DAILY PRN MISC Per rx protocol 07/14/16 09:00 08/13/16 08:59 Allergies: Coded Allergies: CODEINE (Verified Allergy, Intermediate, 07/09/16) MORPHINE (Verified Allergy, Intermediate, 07/09/16) PENICILLINS (Verified Allergy, Intermediate, 07/09/16) Subjective 86 YO F admitted with abdominal pain, now urinary tract infection. Now acute deep venous thrombosis left leg, despite eliquis therapy. Cover for Int Med-Dr Farah. Await assisted facility placement Objective Last Vital Signs Date Time Temp Pulse Resp B/P Pulse Ox O2 Delivery O2 Flow Rate FiO2 07/14/16 11:37 97.0 99 19 139/69 96 Room Air Laboratory Tests Test 07/13/16 16:50 07/14/16 03:50 07/14/16 05:10 Activated Partial Thromboplast Time 89 SEC (23-33) H 75 SEC (23-33) H White Blood Count 6.6 K/UL (4.8-10.8) Red Blood Count 3.90 M/UL (4.20-5.40) L Hemoglobin 12.1 G/DL (12.0-16.0) Hematocrit 37.8 % (37.0-47.0) Mean Corpuscular Volume 97 FL (80-99) Mean Corpuscular Hemoglobin 31.0 PG (27.0-31.0) Mean Corpuscular Hemoglobin Concent 32.0 G/DL (32.0-36.0) Red Cell Distribution Width 13.3 % (11.6-14.8) Platelet Count 134 K/UL (150-450) L Mean Platelet Volume 11.0 FL (6.5-10.1) H Neutrophils (%) (Auto) 48.5 % (45.0-75.0) Lymphocytes (%) (Auto) 39.3 % (20.0-45.0) Monocytes (%) (Auto) 7.0 % (1.0-10.0) Eosinophils (%) (Auto) 3.9 % (0.0-3.0) H Basophils (%) (Auto) 1.3 % (0.0-2.0) Prothrombin Time 24.0 SEC (9.30-11.50) H Prothromb Time International Ratio 2.3 (0.9-1.1) H Sodium Level 138 mEQ/L (135-145) Potassium Level 3.5 mEQ/L (3.4-4.9) Chloride Level 101 mEQ/L (98-107) Carbon Dioxide Level 25 mEQ/L (20-30) Anion Gap 12 (5-15) Blood Urea Nitrogen 4 mg/dL (7-23) L Creatinine 0.6 mg/dL (0.5-0.9) Estimat Glomerular Filtration Rate mL/min (>60) Glucose Level 97 mg/dL (74-106) Calcium Level 9.6 mg/dL (8.6-10.2) Urine Eosinophils None seen Intake and Output 07/13/16 07/14/16 19:00 07:00 Intake Total 502.092 ml 727.416 ml Output Total 220 ml 250 ml Balance 282.092 ml 477.416 ml Intake Oral 360 ml 360 ml IV Total 142.092 ml 367.416 ml Output Urine Total 220 ml 250 ml # Bowel Movements 2 Objective General Appearance: WD/WN, no apparent distress EENT: PERRL/EOMI, normal ENT inspection Neck: non-tender, normal alignment, supple, normal inspection, abnormal alignment Cardiovascular: normal rate, regular rhythm, no gallop/murmur, no JVD Respiratory/Chest: chest wall non-tender, lungs clear, normal breath sounds, no respiratory distress, no accessory muscle use Abdomen: no organomegaly, no mass, decreased bowel sounds, tender Extremities: normal range of motion, non-tender Edema: trace edema Skin: normal pigmentation, warm/dry Assessment/Plan Problem List: (1) HTN (hypertension) Assessment & Plan: Continue diltiazem (2) Decubitus ulcer (3) Alzheimer's dementia (4) Renal failure (5) Abdominal pain (6) DVT (deep venous thrombosis) Assessment & Plan: Acute left femoral despite eliquis. Start coumadin per pharmacy protocol. (7) UTI (urinary tract infection) Assessment & Plan: E. Coli and streptococcus. See ID note. Cont cefepime (8) Atrial fibrillation with rapid ventricular response (9) Hypothyroidism Assessment & Plan: Cont levoxyl Status: stable Assessment/Plan Discharge planning: residential facility HORACIO DA SILVA Jul 14, 2016 12:53
--- NOTE | 2016-07-14 12:55 | General Progress Note ---
Assessment/Plan Status: stable Assessment/Plan Renal failure, likely acute on chronic factors; DM , HTN , ? Medications ( NSAIDs) then superimposed dehydration - Lower abdominal pain most likely secondary to the urinary tract infection. - Left eye blindness. - Diabetes type 2. - Atrial fibrillation with rapid ventricular rate. - Hypertension. - Functional quadriplegia. - Decubitus ulcer. - Bilateral lower extremity edema with a deep venous thrombosis. - Venous stasis of bilateral lower extremities with hyperpigmentation. - Cognitive communication deficit. - HypoThyroidism Plan: K and Phos and Mag supplement as needed Stop all NSAIDs urine studies- monitor renal parameters slow hydrate watch for CHF symptoms per orders Subjective ROS Limited/Unobtainable: No Constitutional: Reports: other - feels good Allergies: Coded Allergies: CODEINE (Verified Allergy, Intermediate, 07/09/16) MORPHINE (Verified Allergy, Intermediate, 07/09/16) PENICILLINS (Verified Allergy, Intermediate, 07/09/16) Objective Last 24 Hour Vital Signs Date Time Temp Pulse Resp B/P Pulse Ox O2 Delivery O2 Flow Rate FiO2 07/14/16 11:37 97.0 99 19 139/69 96 Room Air 07/14/16 08:09 98.0 96 20 130/69 97 Room Air 07/14/16 05:52 106 131/76 07/14/16 04:00 97.3 106 20 131/76 100 Room Air 07/14/16 00:00 96.3 98 20 132/86 100 Room Air 07/13/16 22:14 84 130/72 07/13/16 19:00 97.3 84 18 130/72 97 Room Air 07/13/16 16:00 97.6 87 18 134/74 99 Room Air 07/13/16 14:00 94 118/57 Intake and Output 07/13/16 07/14/16 19:00 07:00 Intake Total 502.092 ml 727.416 ml Output Total 220 ml 250 ml Balance 282.092 ml 477.416 ml Intake Oral 360 ml 360 ml IV Total 142.092 ml 367.416 ml Output Urine Total 220 ml 250 ml # Bowel Movements 2 Laboratory Tests 07/13/16 16:50: Activated Partial Thromboplast Time 89H 07/14/16 03:50: Activated Partial Thromboplast Time 75H, White Blood Count 6.6, Red Blood Count 3.90L, Hemoglobin 12.1, Hematocrit 37.8, Mean Corpuscular Volume 97, Mean Corpuscular Hemoglobin 31.0, Mean Corpuscular Hemoglobin Concent 32.0, Red Cell Distribution Width 13.3, Platelet Count 134L, Mean Platelet Volume 11.0H, Neutrophils (%) (Auto) 48.5, Lymphocytes (%) (Auto) 39.3, Monocytes (%) (Auto) 7.0, Eosinophils (%) (Auto) 3.9H, Basophils (%) (Auto) 1.3, Prothrombin Time 24.0H, Prothromb Time International Ratio 2.3H, Sodium Level 138, Potassium Level 3.5, Chloride Level 101, Carbon Dioxide Level 25, Anion Gap 12, Blood Urea Nitrogen 4L, Creatinine 0.6, Estimat Glomerular Filtration Rate , Glucose Level 97, Calcium Level 9.6 07/14/16 05:10: Urine Eosinophils None seen Height (Feet): 5 Height (Inches): 5.00 Weight (Pounds): 160 General Appearance: no apparent distress Objective other physical exam not changed YOGESH PERRY Jul 14, 2016 12:55
[2016-07-14] MEDS: Cefepime HCl 1 GM in D5W 55 ML IVPB SCH (13:37)
[2016-07-14] MEDS: Heparin 25,000u/D5W 500ml 500 ML IV SCH ×2 (13:48→17:17)
[2016-07-14 16:00] VITALS: BP 123/57
[2016-07-14 20:00] VITALS: BP 128/61
[2016-07-14] MEDS: Miralax 17gm pkt ORAL SCH (21:00)
--- NOTE | 2016-07-14 21:35 | Pulmonology Progress Note ---
Assessment/Plan Problems: (1) Atrial fibrillation with rapid ventricular response (2) DVT (deep venous thrombosis) (3) UTI (urinary tract infection) Assessment/Plan on heparin drip and coumadine INR therapeutic f/u pt, ptt check sensitivity of urine organism heart rate controlled med/surg same antibiotics E, coli and pseudomonas in urine all labs/ meds reviewed dc planning Subjective ROS Limited/Unobtainable: No Interval Events: comfortable Allergies: Coded Allergies: CODEINE (Verified Allergy, Intermediate, 07/09/16) MORPHINE (Verified Allergy, Intermediate, 07/09/16) PENICILLINS (Verified Allergy, Intermediate, 07/09/16) Objective Last 24 Hour Vital Signs Date Time Temp Pulse Resp B/P Pulse Ox O2 Delivery O2 Flow Rate FiO2 07/14/16 21:12 110 128/61 07/14/16 20:00 99.5 110 18 128/61 99 Room Air 07/14/16 16:00 97.6 104 17 123/57 100 Room Air 07/14/16 14:00 99 139/69 07/14/16 11:37 97.0 99 19 139/69 96 Room Air 07/14/16 08:09 98.0 96 20 130/69 97 Room Air 07/14/16 05:52 106 131/76 07/14/16 04:00 97.3 106 20 131/76 100 Room Air 07/14/16 00:00 96.3 98 20 132/86 100 Room Air 07/13/16 22:14 84 130/72 Intake and Output 07/13/16 07/14/16 19:00 07:00 Intake Total 502.092 ml 727.416 ml Output Total 220 ml 250 ml Balance 282.092 ml 477.416 ml Intake Oral 360 ml 360 ml IV Total 142.092 ml 367.416 ml Output Urine Total 220 ml 250 ml # Bowel Movements 2 Objective General Appearance: WD/WN HEENT: normocephalic, atraumatic Respiratory/Chest: chest wall non-tender, lungs clear Cardiovascular: normal peripheral pulses, normal rate Abdomen: normal bowel sounds, soft, non tender, Extremities: no cyanosis, no clubbing Skin: no rash Laboratory Tests 07/14/16 03:50: White Blood Count 6.6, Red Blood Count 3.90L, Hemoglobin 12.1, Hematocrit 37.8, Mean Corpuscular Volume 97, Mean Corpuscular Hemoglobin 31.0, Mean Corpuscular Hemoglobin Concent 32.0, Red Cell Distribution Width 13.3, Platelet Count 134L, Mean Platelet Volume 11.0H, Neutrophils (%) (Auto) 48.5, Lymphocytes (%) (Auto) 39.3, Monocytes (%) (Auto) 7.0, Eosinophils (%) (Auto) 3.9H, Basophils (%) (Auto ) 1.3, Prothrombin Time 24.0H, Prothromb Time International Ratio 2.3H, Activated Partial Thromboplast Time 75H, Sodium Level 138, Potassium Level 3.5, Chloride Level 101, Carbon Dioxide Level 25, Anion Gap 12, Blood Urea Nitrogen 4L, Creatinine 0.6, Estimat Glomerular Filtration Rate , Glucose Level 97, Calcium Level 9.6 07/14/16 05:10: Urine Eosinophils None seen Current Medications Medications (Trade) Dose Ordered Sig/Gt Route PRN Reason Start Time Stop Time Status Last Admin Dose Admin Acetaminophen (Tylenol) 650 mg Q4H PRN ORAL fever 07/13/16 16:45 08/12/16 16:44 Cefepime HCl/ Dextrose (Maxipime/D5W) 55 ml @ 110 mls/hr Q24H IVPB 07/13/16 14:00 07/19/16 13:59 07/14/16 13:37 Dextrose (Dextrose 50%) STAT PRN IV Hypoglycemia 07/13/16 20:45 08/12/16 20:44 Diltiazem HCl (Cardizem) 30 mg EVERY 8 HOURS ORAL 07/13/16 14:00 08/12/16 13:59 07/14/16 21:12 Lactulose (Cephulac) 30 gm THREE TIMES A DAY ORAL 07/13/16 18:00 08/12/16 17:59 07/13/16 18:16 Levothyroxine Sodium (Synthroid) 125 mcg ACBREAKFAST ORAL 07/14/16 06:30 08/13/16 06:29 07/14/16 05:52 Mineral Oil (Fleet's Mineral Oil Enema) 133 ml EVERY OTHER DAY RECTAL 07/14/16 09:00 08/13/16 08:59 Nitroglycerin (Ntg) 0.4 mg Q5M X 3 DOSES PRN SL Prn Chest Pain 07/13/16 13:30 08/12/16 13:29 Ondansetron HCl (Zofran) 4 mg Q6H PRN IVP Nausea & Vomiting 07/13/16 14:45 08/12/16 14:44 Polyethylene Glycol (Miralax) 17 gm BEDTIME ORAL 07/13/16 21:00 08/12/16 20:59 07/13/16 22:14 Polyethylene Glycol (Miralax) 17 gm HSPRN PRN ORAL Constipation 07/13/16 20:45 08/12/16 20:44 Sennosides (Senokot) 8.6 mg DAILY ORAL 07/14/16 09:00 08/13/16 08:59 07/14/16 08:29 Temazepam (Restoril) 15 mg HSPRN PRN ORAL Insomnia 07/13/16 20:45 07/20/16 20:44 Vancomycin HCl 1 ea 1 ea DAILY PRN MISC Per rx protocol 07/13/16 22:00 08/12/16 21:59 Vancomycin HCl/ Dextrose (Vancomycin/D5W) 275 ml @ 183.708 mls/hr Q24H IVPB 07/13/16 23:00 07/18/16 22:59 07/14/16 00:30 Vitamin A/Vitamin D (A & D Oint) 1 applic EVERY 12 HOURS TOPIC 07/13/16 21:00 08/12/16 20:59 07/14/16 21:12 Warfarin Sodium (Coumadin per pharmacy) 1 ea DAILY PRN MISC Per rx protocol 07/14/16 09:00 08/13/16 08:59 MIMI MCMILLAN Jul 14, 2016 21:35
[2016-07-15] VITALS (7 sets, daily range): BP systolic 106–155; BP diastolic 52–89
[2016-07-15] MEDS: Levothyroxine 125mcg tab ORAL SCH (06:16)
[2016-07-15 07:46] LABS: MEAN CORPUSCULAR HEMOGLOBIN 30.7 PG (27.0-31.0); MEAN CORPUSCULAR HGB CONC 31.5 G/DL (32.0-36.0); MEAN CORPUSCULAR VOLUME 97 FL (80-99); MEAN PLATELET VOLUME 10.8 FL (6.5-10.1); PLATELET COUNT 95 K/UL (150-450); RED BLOOD COUNT 4.08 M/UL (4.20-5.40); RED CELL DISTRIBUTION WIDTH 13.4 % (11.6-14.8); WHITE BLOOD COUNT 6.5 K/UL (4.8-10.8)
[2016-07-15 08:00] LABS: INR 1.5 (0.9-1.1); PROTHROMBIN TIME 15.4 SEC (9.30-11.50)
[2016-07-15 08:13] LABS: ANION GAP 17 (5-15); CALCIUM 9.8 mg/dL (8.6-10.2); CARBON DIOXIDE 24 mEQ/L (20-30); CHLORIDE 95 mEQ/L (98-107); CREATININE 0.6 mg/dL (0.5-0.9); HEMOLYSIS 37; POTASSIUM 3.9 mEQ/L (3.4-4.9); SODIUM 136 mEQ/L (135-145)
[2016-07-15 08:24] LABS: BAND NEUTROPHILS % (MANUAL) 0 % (0-8); BASOPHILS % (MANUAL) 1 % (0-2); EOSINOPHILS % (MANUAL) 2 % (0-3); LYMPHOCYTES % (MANUAL) 39 % (20-45); NEUTROPHILS % (MANUAL) 49 % (45-75); PLATELET ESTIMATE DECREASED; TOTAL CELLS COUNTED 100
[2016-07-15 08:25] LABS: PLATELET MORPHOLOGY NORMAL
[2016-07-15] MEDS: Vitamin A&D Oint 2oz Tube TOPIC SCH ×2 (08:55→21:24)
[2016-07-15] MEDS: Lactulose 20gm/30ml UDC ORAL SCH ×3 (08:55→17:40)
--- NOTE | 2016-07-15 11:47 | Infectious Diseases Prog Note ---
Assessment/Plan Assessment/Plan ASSESSMENT AND PLAN: 1. e.coli uti and pseudomonas enterococcus uti - cefepime - day # 4, vancomycin - day # 3 - watch cr on vancomycin - clinically stable 2. Atrial fibrillation with rapid ventricular response. 3. Acute kidney injury on chronic renal failure. 4. Dehydration. 5. Hyponatremia. 6. Hypothyroidism. 7. Hyperuricemia. 8. Hypertension. 9. Diabetes. 10. Continue blood pressure treatment per primary consultants. 11. Deep venous thrombosis. 12. Coronary artery disease. 13. Tachycardia. 14. Atrial fibrillation. 15. Allergies to codeine, morphine, and penicillin. 16. mar noted 17. Case discussed with RN. 18. Family history noncontributory. 19. Social history negative for smoking, alcohol, or drug abuse. 20. Notes and records reviewed. 21. Continue treatment per primary and consultants. 22. Skin care per protocol. 23. Treatment for edema. 24. Case discussed with the patient. Subjective Constitutional: Denies: fever HEENT: Denies: congestion Respiratory: Denies: shortness of breath Cardiovascular: Denies: chest pain Gastrointestinal/Abdominal: Denies: constipation, nausea, vomiting Neurologic: Denies: headache Psychiatric: Denies: depression Skin: Denies: rash Hematologic: Denies: bleeding Musculoskeletal: Denies: pain Allergies: Coded Allergies: CODEINE (Verified Allergy, Intermediate, 07/09/16) MORPHINE (Verified Allergy, Intermediate, 07/09/16) PENICILLINS (Verified Allergy, Intermediate, 07/09/16) Objective Vital Signs Last 24 Hour Vital Signs Date Time Temp Pulse Resp B/P Pulse Ox O2 Delivery O2 Flow Rate FiO2 07/15/16 08:13 97.9 91 21 150/65 97 Room Air 07/15/16 06:00 98 106/52 07/15/16 04:00 97.0 98 20 106/52 99 Room Air 07/15/16 00:00 97.7 96 20 121/55 100 Room Air 07/14/16 21:12 110 128/61 07/14/16 20:00 99.5 110 18 128/61 99 Room Air 07/14/16 16:00 97.6 104 17 123/57 100 Room Air 07/14/16 14:00 99 139/69 Height (Feet): 5 Height (Inches): 5.00 Weight (Pounds): 160 General Appearance: no acute distress HEENT: normocephalic, atraumatic, anicteric, mucous membranes moist, PERRL, EOMI, pharynx normal, supple, no JVD Respiratory/Chest: lungs clear, normal breath sounds, no respiratory distress, no accessory muscle use Cardiovascular: normal rate, regular rhythm, no gallop/murmur, no JVD Abdomen: normal bowel sounds, soft, non tender, no organomegaly, non distended Genitourinary: other - + pena - urine slt cloudy but clearer Extremities: no cyanosis Skin: no rash 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 Complete 07/10/16 14:35 Urine,Clean Catch Urine Culture - Final Escherichia Coli Enterococcus Faecalis Complete 07/09/16 17:54 Rectum VRE Culture - Final NO VANCOMYCIN RESISTANT ENTEROCOCCUS ... Complete Laboratory Tests Test 07/15/16 06:55 White Blood Count 6.5 K/UL (4.8-10.8) Red Blood Count 4.08 M/UL (4.20-5.40) L Hemoglobin 12.5 G/DL (12.0-16.0) Hematocrit 39.8 % (37.0-47.0) Mean Corpuscular Volume 97 FL (80-99) Mean Corpuscular Hemoglobin 30.7 PG (27.0-31.0) Mean Corpuscular Hemoglobin Concent 31.5 G/DL (32.0-36.0) L Red Cell Distribution Width 13.4 % (11.6-14.8) Platelet Count 95 K/UL (150-450) L Mean Platelet Volume 10.8 FL (6.5-10.1) H Neutrophils (%) (Auto) % (45.0-75.0) Lymphocytes (%) (Auto) % (20.0-45.0) Monocytes (%) (Auto) % (1.0-10.0) Eosinophils (%) (Auto) % (0.0-3.0) Basophils (%) (Auto) % (0.0-2.0) Differential Total Cells Counted 100 Neutrophils % (Manual) 49 % (45-75) Lymphocytes % (Manual) 39 % (20-45) Monocytes % (Manual) 9 % (1-10) Eosinophils % (Manual) 2 % (0-3) Basophils % (Manual) 1 % (0-2) Band Neutrophils 0 % (0-8) Platelet Estimate Decreased L Platelet Morphology Normal Red Blood Cell Morphology Normal Prothrombin Time 15.4 SEC (9.30-11.50) H Prothromb Time International Ratio 1.5 (0.9-1.1) H Activated Partial Thromboplast Time 31 SEC (23-33) Sodium Level 136 mEQ/L (135-145) Potassium Level 3.9 mEQ/L (3.4-4.9) Chloride Level 95 mEQ/L (98-107) L Carbon Dioxide Level 24 mEQ/L (20-30) Anion Gap 17 (5-15) H Blood Urea Nitrogen 5 mg/dL (7-23) L Creatinine 0.6 mg/dL (0.5-0.9) Estimat Glomerular Filtration Rate mL/min (>60) Glucose Level 89 mg/dL (74-106) Calcium Level 9.8 mg/dL (8.6-10.2) Current Medications Medications (Trade) Dose Ordered Sig/Gt Route PRN Reason Start Time Stop Time Status Last Admin Dose Admin Acetaminophen (Tylenol) 650 mg Q4H PRN ORAL fever 07/13/16 16:45 08/12/16 16:44 Cefepime HCl/ Dextrose (Maxipime/D5W) 55 ml @ 110 mls/hr Q24H IVPB 07/13/16 14:00 07/19/16 13:59 07/14/16 13:37 Dextrose (Dextrose 50%) STAT PRN IV Hypoglycemia 07/13/16 20:45 08/12/16 20:44 Diltiazem HCl (Cardizem) 30 mg EVERY 8 HOURS ORAL 07/13/16 14:00 08/12/16 13:59 07/14/16 21:12 Lactulose (Cephulac) 30 gm THREE TIMES A DAY ORAL 07/13/16 18:00 08/12/16 17:59 07/15/16 08:55 Levothyroxine Sodium (Synthroid) 125 mcg ACBREAKFAST ORAL 07/14/16 06:30 08/13/16 06:29 07/15/16 06:16 Mineral Oil (Fleet's Mineral Oil Enema) 133 ml EVERY OTHER DAY RECTAL 07/14/16 09:00 08/13/16 08:59 Nitroglycerin (Ntg) 0.4 mg Q5M X 3 DOSES PRN SL Prn Chest Pain 07/13/16 13:30 08/12/16 13:29 Ondansetron HCl (Zofran) 4 mg Q6H PRN IVP Nausea & Vomiting 07/13/16 14:45 08/12/16 14:44 Polyethylene Glycol (Miralax) 17 gm BEDTIME ORAL 07/13/16 21:00 08/12/16 20:59 07/13/16 22:14 Polyethylene Glycol (Miralax) 17 gm HSPRN PRN ORAL Constipation 07/13/16 20:45 08/12/16 20:44 Sennosides (Senokot) 8.6 mg DAILY ORAL 07/14/16 09:00 08/13/16 08:59 07/15/16 08:55 Temazepam (Restoril) 15 mg HSPRN PRN ORAL Insomnia 07/13/16 20:45 07/20/16 20:44 Vancomycin HCl 1 ea 1 ea DAILY PRN MISC Per rx protocol 07/13/16 22:00 08/12/16 21:59 Vancomycin HCl/ Dextrose (Vancomycin/D5W) 275 ml @ 183.708 mls/hr Q24H IVPB 07/13/16 23:00 07/18/16 22:59 07/14/16 22:04 Vitamin A/Vitamin D (A & D Oint) 1 applic EVERY 12 HOURS TOPIC 07/13/16 21:00 08/12/16 20:59 07/15/16 08:55 Warfarin Sodium (Coumadin per pharmacy) 1 ea DAILY PRN MISC Per rx protocol 07/14/16 09:00 08/13/16 08:59 Warfarin Sodium (Coumadin) 4 mg COUMADIN ONCE PO 07/15/16 17:00 07/15/16 17:01 WISAM LAURA Jul 15, 2016 11:47
[2016-07-15] MEDS ORDERED: TYLENOL650 MG/20. ORAL (13:48)
[2016-07-15] MEDS ORDERED: CARDIZEM30 M1 PO (13:49)
[2016-07-15] MEDS ORDERED: MINERAL OIL EN133 ML RC (13:50)
[2016-07-15] MEDS ORDERED: NITROGLYCERIN0.4 MG SL (13:54)
[2016-07-15] MEDS ORDERED: ZOFRAN4 M1 ORAL (13:54)
[2016-07-15] MEDS ORDERED: POLYETHYLENE GL17 GM ORAL (13:55)
[2016-07-15] MEDS ORDERED: SENNOSIDES8.6 MG ORAL (13:56)
[2016-07-15] MEDS ORDERED: RESTORIL15 MG ORAL (13:57)
[2016-07-15] MEDS ORDERED: A & D OINT1 APPLI1 (14:00)
[2016-07-15] MEDS ORDERED: WARFARIN SODIUM4 MG ORAL (14:06)
--- NOTE | 2016-07-15 14:30 | General Progress Note ---
Assessment/Plan Status: stable Assessment/Plan Renal failure, likely acute on chronic factors; DM , HTN , ? Medications ( NSAIDs) then superimposed dehydration - Lower abdominal pain most likely secondary to the urinary tract infection. - Left eye blindness. - Diabetes type 2. - Atrial fibrillation with rapid ventricular rate. - Hypertension. - Functional quadriplegia. - Decubitus ulcer. - Bilateral lower extremity edema with a deep venous thrombosis. - Venous stasis of bilateral lower extremities with hyperpigmentation. - Cognitive communication deficit. - HypoThyroidism Plan: K and Phos and Mag supplement as needed Stop all NSAIDs urine studies- monitor renal parameters slow hydrate watch for CHF symptoms per orders Subjective ROS Limited/Unobtainable: No Allergies: Coded Allergies: CODEINE (Verified Allergy, Intermediate, 07/09/16) MORPHINE (Verified Allergy, Intermediate, 07/09/16) PENICILLINS (Verified Allergy, Intermediate, 07/09/16) Objective Last 24 Hour Vital Signs Date Time Temp Pulse Resp B/P Pulse Ox O2 Delivery O2 Flow Rate FiO2 07/15/16 11:45 98.6 101 20 147/89 97 Room Air 07/15/16 08:13 97.9 91 21 150/65 97 Room Air 07/15/16 06:00 98 106/52 07/15/16 04:00 97.0 98 20 106/52 99 Room Air 07/15/16 00:00 97.7 96 20 121/55 100 Room Air 07/14/16 21:12 110 128/61 07/14/16 20:00 99.5 110 18 128/61 99 Room Air 07/14/16 16:00 97.6 104 17 123/57 100 Room Air Intake and Output 07/14/16 07/15/16 19:00 07:00 Intake Total 240 ml 360 ml Output Total 800 ml 450 ml Balance -560 ml -90 ml Intake Oral 240 ml 360 ml Output Urine Total 800 ml 450 ml Laboratory Tests 07/15/16 06:55: White Blood Count 6.5, Red Blood Count 4.08L, Hemoglobin 12.5, Hematocrit 39.8, Mean Corpuscular Volume 97, Mean Corpuscular Hemoglobin 30.7, Mean Corpuscular Hemoglobin Concent 31.5L, Red Cell Distribution Width 13.4, Platelet Count 95L, Mean Platelet Volume 10.8H, Neutrophils (%) (Auto) , Lymphocytes (%) (Auto) , Monocytes (%) (Auto) , Eosinophils (%) (Auto) , Basophils (%) (Auto) , Differential Total Cells Counted 100, Neutrophils % (Manual) 49, Lymphocytes % ( Manual) 39, Monocytes % (Manual) 9, Eosinophils % (Manual) 2, Basophils % ( Manual) 1, Band Neutrophils 0, Platelet Estimate DecreasedL, Platelet Morphology Normal, Red Blood Cell Morphology Normal, Prothrombin Time 15.4H, Prothromb Time International Ratio 1.5H, Activated Partial Thromboplast Time 31 , Sodium Level 136, Potassium Level 3.9, Chloride Level 95L, Carbon Dioxide Level 24, Anion Gap 17H, Blood Urea Nitrogen 5L, Creatinine 0.6, Estimat Glomerular Filtration Rate , Glucose Level 89, Calcium Level 9.8 Height (Feet): 5 Height (Inches): 5.00 Weight (Pounds): 160 General Appearance: no apparent distress Objective other physical exam not changed YOGESH PERRY Jul 15, 2016 14:30
[2016-07-15] MEDS ORDERED: CEPHALEXIN500 M1 ORAL (14:31)
[2016-07-15] MEDS ORDERED: NITROFURANTOIN100 M2 ORAL (14:36)
[2016-07-15] MEDS ORDERED: D5W 275ml ONE (14:45)
[2016-07-15] MEDS ORDERED: Tubing IV Secondary IV ONE ×3 (14:45→21:54)
[2016-07-15] MEDS: Cefepime HCl 1 GM in D5W 55 ML IVPB SCH (14:45)
--- NOTE | 2016-07-15 16:11 | Internal Med Progress Note ---
Subjective Date of Service: Jul 15, 2016 Physician Name Da Silva,Luis Felipe Attending Physician Darvin Farah MD Current Medications Medications (Trade) Dose Ordered Sig/Gt Route PRN Reason Start Time Stop Time Status Last Admin Dose Admin Acetaminophen (Tylenol) 650 mg Q4H PRN ORAL fever 07/13/16 16:45 08/12/16 16:44 Cefepime HCl/ Dextrose (Maxipime/D5W) 55 ml @ 110 mls/hr Q24H IVPB 07/13/16 14:00 07/19/16 13:59 07/15/16 14:45 Dextrose (Dextrose 50%) STAT PRN IV Hypoglycemia 07/13/16 20:45 08/12/16 20:44 Diltiazem HCl (Cardizem) 30 mg EVERY 8 HOURS ORAL 07/13/16 14:00 08/12/16 13:59 07/15/16 14:44 Lactulose (Cephulac) 30 gm THREE TIMES A DAY ORAL 07/13/16 18:00 08/12/16 17:59 07/15/16 14:44 Levothyroxine Sodium (Synthroid) 125 mcg ACBREAKFAST ORAL 07/14/16 06:30 08/13/16 06:29 07/15/16 06:16 Mineral Oil (Fleet's Mineral Oil Enema) 133 ml EVERY OTHER DAY RECTAL 07/14/16 09:00 08/13/16 08:59 Nitroglycerin (Ntg) 0.4 mg Q5M X 3 DOSES PRN SL Prn Chest Pain 07/13/16 13:30 08/12/16 13:29 Ondansetron HCl (Zofran) 4 mg Q6H PRN IVP Nausea & Vomiting 07/13/16 14:45 08/12/16 14:44 Polyethylene Glycol (Miralax) 17 gm BEDTIME ORAL 07/13/16 21:00 08/12/16 20:59 07/13/16 22:14 Polyethylene Glycol (Miralax) 17 gm HSPRN PRN ORAL Constipation 07/13/16 20:45 08/12/16 20:44 Sennosides (Senokot) 8.6 mg DAILY ORAL 07/14/16 09:00 08/13/16 08:59 07/15/16 08:55 Temazepam (Restoril) 15 mg HSPRN PRN ORAL Insomnia 07/13/16 20:45 07/20/16 20:44 Vancomycin HCl 1 ea 1 ea DAILY PRN MISC Per rx protocol 07/13/16 22:00 08/12/16 21:59 Vancomycin HCl/ Dextrose (Vancomycin/D5W) 275 ml @ 183.708 mls/hr Q24H IVPB 07/13/16 23:00 07/18/16 22:59 07/14/16 22:04 Vitamin A/Vitamin D (A & D Oint) 1 applic EVERY 12 HOURS TOPIC 07/13/16 21:00 08/12/16 20:59 07/15/16 08:55 Warfarin Sodium (Coumadin per pharmacy) 1 ea DAILY PRN MISC Per rx protocol 07/14/16 09:00 08/13/16 08:59 Warfarin Sodium (Coumadin) 4 mg COUMADIN ONCE PO 07/15/16 17:00 07/15/16 17:01 Allergies: Coded Allergies: CODEINE (Verified Allergy, Intermediate, 07/09/16) MORPHINE (Verified Allergy, Intermediate, 07/09/16) PENICILLINS (Verified Allergy, Intermediate, 07/09/16) ROS Limited/Unobtainable: Yes Subjective 86 YO F admitted with abdominal pain, now urinary tract infection. Now acute deep venous thrombosis left leg, despite eliquis therapy. Cover for Int Med-Dr Farah. Await transfer [facility] today. Objective Last Vital Signs Date Time Temp Pulse Resp B/P Pulse Ox O2 Delivery O2 Flow Rate FiO2 07/15/16 14:44 101 147/89 07/15/16 11:45 98.6 20 97 Room Air Laboratory Tests Test 07/15/16 06:55 White Blood Count 6.5 K/UL (4.8-10.8) Red Blood Count 4.08 M/UL (4.20-5.40) L Hemoglobin 12.5 G/DL (12.0-16.0) Hematocrit 39.8 % (37.0-47.0) Mean Corpuscular Volume 97 FL (80-99) Mean Corpuscular Hemoglobin 30.7 PG (27.0-31.0) Mean Corpuscular Hemoglobin Concent 31.5 G/DL (32.0-36.0) L Red Cell Distribution Width 13.4 % (11.6-14.8) Platelet Count 95 K/UL (150-450) L Mean Platelet Volume 10.8 FL (6.5-10.1) H Neutrophils (%) (Auto) % (45.0-75.0) Lymphocytes (%) (Auto) % (20.0-45.0) Monocytes (%) (Auto) % (1.0-10.0) Eosinophils (%) (Auto) % (0.0-3.0) Basophils (%) (Auto) % (0.0-2.0) Differential Total Cells Counted 100 Neutrophils % (Manual) 49 % (45-75) Lymphocytes % (Manual) 39 % (20-45) Monocytes % (Manual) 9 % (1-10) Eosinophils % (Manual) 2 % (0-3) Basophils % (Manual) 1 % (0-2) Band Neutrophils 0 % (0-8) Platelet Estimate Decreased L Platelet Morphology Normal Red Blood Cell Morphology Normal Prothrombin Time 15.4 SEC (9.30-11.50) H Prothromb Time International Ratio 1.5 (0.9-1.1) H Activated Partial Thromboplast Time 31 SEC (23-33) Sodium Level 136 mEQ/L (135-145) Potassium Level 3.9 mEQ/L (3.4-4.9) Chloride Level 95 mEQ/L (98-107) L Carbon Dioxide Level 24 mEQ/L (20-30) Anion Gap 17 (5-15) H Blood Urea Nitrogen 5 mg/dL (7-23) L Creatinine 0.6 mg/dL (0.5-0.9) Estimat Glomerular Filtration Rate mL/min (>60) Glucose Level 89 mg/dL (74-106) Calcium Level 9.8 mg/dL (8.6-10.2) Intake and Output 07/14/16 07/15/16 19:00 07:00 Intake Total 240 ml 360 ml Output Total 800 ml 450 ml Balance -560 ml -90 ml Intake Oral 240 ml 360 ml Output Urine Total 800 ml 450 ml Objective General Appearance: WD/WN, no apparent distress EENT: PERRL/EOMI, normal ENT inspection Neck: non-tender, normal alignment, supple, normal inspection, abnormal alignment Cardiovascular: normal rate, regular rhythm, no gallop/murmur, no JVD Respiratory/Chest: chest wall non-tender, lungs clear, normal breath sounds, no respiratory distress, no accessory muscle use Abdomen: no organomegaly, no mass, decreased bowel sounds, tender Extremities: normal range of motion, non-tender Edema: trace edema Skin: normal pigmentation, warm/dry Assessment/Plan Problem List: (1) HTN (hypertension) Assessment & Plan: Continue diltiazem (2) Decubitus ulcer (3) Alzheimer's dementia (4) Renal failure (5) Abdominal pain (6) DVT (deep venous thrombosis) Assessment & Plan: Acute left femoral despite eliquis. Continue coumadin per pharmacy protocol. (7) UTI (urinary tract infection) Assessment & Plan: E. Coli and streptococcus. See ID note. Cont cefepime (8) Atrial fibrillation with rapid ventricular response (9) Hypothyroidism Assessment & Plan: Cont levoxyl Assessment/Plan Discharge planning: Transfer to [facility] today LUIS FELIPE DA SILVA Jul 15, 2016 16:11
--- NOTE | 2016-07-15 16:19 | Pulmonology Progress Note ---
Assessment/Plan Problems: (1) Atrial fibrillation with rapid ventricular response (2) DVT (deep venous thrombosis) (3) UTI (urinary tract infection) Assessment/Plan off heparin drip and coumadine INR therapeutic f/u pt, ptt heart rate controlled med/surg same antibiotics E, coli and pseudomonas in urine all labs/ meds reviewed dc planning for today to long-term Subjective ROS Limited/Unobtainable: No Interval Events: comfortable Allergies: Coded Allergies: CODEINE (Verified Allergy, Intermediate, 07/09/16) MORPHINE (Verified Allergy, Intermediate, 07/09/16) PENICILLINS (Verified Allergy, Intermediate, 07/09/16) Objective Last 24 Hour Vital Signs Date Time Temp Pulse Resp B/P Pulse Ox O2 Delivery O2 Flow Rate FiO2 07/15/16 14:44 101 147/89 07/15/16 11:45 98.6 101 20 147/89 97 Room Air 07/15/16 08:13 97.9 91 21 150/65 97 Room Air 07/15/16 06:00 98 106/52 07/15/16 04:00 97.0 98 20 106/52 99 Room Air 07/15/16 00:00 97.7 96 20 121/55 100 Room Air 07/14/16 21:12 110 128/61 07/14/16 20:00 99.5 110 18 128/61 99 Room Air Intake and Output 07/14/16 07/15/16 19:00 07:00 Intake Total 240 ml 360 ml Output Total 800 ml 450 ml Balance -560 ml -90 ml Intake Oral 240 ml 360 ml Output Urine Total 800 ml 450 ml Objective General Appearance: WD/WN HEENT: normocephalic, atraumatic Respiratory/Chest: chest wall non-tender, lungs clear Cardiovascular: normal peripheral pulses, normal rate Abdomen: normal bowel sounds, soft, non tender, Extremities: no cyanosis, no clubbing Skin: no rash Laboratory Tests 07/15/16 06:55: White Blood Count 6.5, Red Blood Count 4.08L, Hemoglobin 12.5, Hematocrit 39.8, Mean Corpuscular Volume 97, Mean Corpuscular Hemoglobin 30.7, Mean Corpuscular Hemoglobin Concent 31.5L, Red Cell Distribution Width 13.4, Platelet Count 95L, Mean Platelet Volume 10.8H, Neutrophils (%) (Auto) , Lymphocytes (%) (Auto) , Monocytes (%) (Auto) , Eosinophils (%) (Auto) , Basophils (%) (Auto) , Differential Total Cells Counted 100, Neutrophils % (Manual) 49, Lymphocytes % ( Manual) 39, Monocytes % (Manual) 9, Eosinophils % (Manual) 2, Basophils % ( Manual) 1, Band Neutrophils 0, Platelet Estimate DecreasedL, Platelet Morphology Normal, Red Blood Cell Morphology Normal, Prothrombin Time 15.4H, Prothromb Time International Ratio 1.5H, Activated Partial Thromboplast Time 31 , Sodium Level 136, Potassium Level 3.9, Chloride Level 95L, Carbon Dioxide Level 24, Anion Gap 17H, Blood Urea Nitrogen 5L, Creatinine 0.6, Estimat Glomerular Filtration Rate , Glucose Level 89, Calcium Level 9.8 Current Medications Medications (Trade) Dose Ordered Sig/Gt Route PRN Reason Start Time Stop Time Status Last Admin Dose Admin Acetaminophen (Tylenol) 650 mg Q4H PRN ORAL fever 07/13/16 16:45 08/12/16 16:44 Cefepime HCl/ Dextrose (Maxipime/D5W) 55 ml @ 110 mls/hr Q24H IVPB 07/13/16 14:00 07/19/16 13:59 07/15/16 14:45 Dextrose (Dextrose 50%) STAT PRN IV Hypoglycemia 07/13/16 20:45 08/12/16 20:44 Diltiazem HCl (Cardizem) 30 mg EVERY 8 HOURS ORAL 07/13/16 14:00 08/12/16 13:59 07/15/16 14:44 Lactulose (Cephulac) 30 gm THREE TIMES A DAY ORAL 07/13/16 18:00 08/12/16 17:59 07/15/16 14:44 Levothyroxine Sodium (Synthroid) 125 mcg ACBREAKFAST ORAL 07/14/16 06:30 08/13/16 06:29 07/15/16 06:16 Mineral Oil (Fleet's Mineral Oil Enema) 133 ml EVERY OTHER DAY RECTAL 07/14/16 09:00 08/13/16 08:59 Nitroglycerin (Ntg) 0.4 mg Q5M X 3 DOSES PRN SL Prn Chest Pain 07/13/16 13:30 08/12/16 13:29 Ondansetron HCl (Zofran) 4 mg Q6H PRN IVP Nausea & Vomiting 07/13/16 14:45 08/12/16 14:44 Polyethylene Glycol (Miralax) 17 gm BEDTIME ORAL 07/13/16 21:00 08/12/16 20:59 07/13/16 22:14 Polyethylene Glycol (Miralax) 17 gm HSPRN PRN ORAL Constipation 07/13/16 20:45 08/12/16 20:44 Sennosides (Senokot) 8.6 mg DAILY ORAL 07/14/16 09:00 08/13/16 08:59 07/15/16 08:55 Temazepam (Restoril) 15 mg HSPRN PRN ORAL Insomnia 07/13/16 20:45 07/20/16 20:44 Vancomycin HCl 1 ea 1 ea DAILY PRN MISC Per rx protocol 07/13/16 22:00 08/12/16 21:59 Vancomycin HCl/ Dextrose (Vancomycin/D5W) 275 ml @ 183.708 mls/hr Q24H IVPB 07/13/16 23:00 07/18/16 22:59 07/14/16 22:04 Vitamin A/Vitamin D (A & D Oint) 1 applic EVERY 12 HOURS TOPIC 07/13/16 21:00 08/12/16 20:59 07/15/16 08:55 Warfarin Sodium (Coumadin per pharmacy) 1 ea DAILY PRN MISC Per rx protocol 07/14/16 09:00 08/13/16 08:59 Warfarin Sodium (Coumadin) 4 mg COUMADIN ONCE PO 07/15/16 17:00 07/15/16 17:01 MIMI MCMILLAN Jul 15, 2016 16:19
[2016-07-15] MEDS ORDERED: Warfarin Sodium 4mg PO ONE (17:00)
[2016-07-15] MEDS: Miralax 17gm pkt ORAL SCH (21:00)
--- NOTE | 2016-07-16 14:57 | Discharge Summary ---
Discharge Summary Hospital Course Date of Admission Jul 09, 2016 at 16:13 Date of Discharge Jul 15, 2016 at 21:55 Admitting Diagnosis AFIB HPI Marjorie Swan is a 86 year old female who was admitted on Jul 09, 2016 at 16:13 for AFIB Hospital Course [id number] Discharge Discharge Disposition Patient was discharged to SNF/Subacute Facility(03) Discharge Diagnoses: Amparo Jovel NP Jul 16, 2016 14:57
--- NOTE | 2016-07-17 02:08 | Discharge Summary 2 SIG ---
DATE OF ADMISSION: 07/09/2016 DATE OF DISCHARGE: 07/15/2016 CONSULTANTS: 1. Glenna Calderón M.D. 2. Fer Caldera M.D. 3. Attila Archer M.D. BRIEF HOSPITAL COURSE: The patient is an 86-year-old, female with history of venous insufficiency, chronic edema, hypothyroidism, blindness, hypertension, functional quadriplegia, GERD, anemia, heart failure, gout, dysphagia, diabetes, morbid obesity, and dermatitis, who presented to ED complaining of flank pain. The patient is mostly bedbound and nonambulatory. The patient was admitted to the hospital for atrial fibrillation with rapid ventricular response as well as acute DVT and urinary tract infection. She was admitted to telemetry and was given IV hydration and was started on heparin drip. The patient's renal failure is likely acute on chronic. The patient's EKG shows atrial fibrillation and developed acute DVT despite being on Eliquis. Echocardiogram done showed good left ventricular function with pulmonary hypertension of moderate degree. Since left ventricular function is good, does not need SINTIA inhibitor and we will use calcium channel billie, Cardizem for heart rate control. She was given Coumadin bridge with heparin. Urine culture showed growth of E. coli, Pseudomonas, and Enterococcus. She was given IV cefepime and vancomycin and was discharged on p.o. Keflex and Macrobid to continue for four more days. FINAL DIAGNOSES: 1. Acute deep venous thrombosis on the left leg. 2. Urinary tract infection with Escherichia coli and Pseudomonas. 3. Atrial fibrillation with rapid ventricular response. 4. Acute on chronic renal failure. 5. Alzheimer's dementia. 6. Hypertension. 7. Functional quadriplegia. 8. Venous stasis of bilateral lower extremities with hyperpigmentation. 9. Left eye blindness. 10. Severe dehydration. 11. Cognitive communication deficit. 12. Sacral left and right buttock full-thickness scar and right medial unstageable pressure ulcer present on admission. Darvin Farah M.D. I have been assigned to dictate discharge summary on this account and I was not involved in the patient's management. Amparo Jovel N.P. DR: DOMINGO JOB#: [id number] CC:
== END 2016-07-15 21:55 | DRG 299 ==
LOC: EDBD 14:54 → EMR 16:12 → 2E 16:13 → EDBEDREQ 18:11 → 4E 07-13 13:26
DX: I82.412 Acute embolism and thrombosis of left femoral vein (principal); R53.2 Functional quadriplegia; N17.0 Acute kidney failure with tubular necrosis; L89.159 Pressure ulcer of sacral region, unspecified stage; L89.313 Pressure ulcer of right buttock, stage 3; I27.2 Other secondary pulmonary hypertension; E11.22 Type 2 diabetes mellitus with diabetic chronic kidney disease; L89.323 Pressure ulcer of left buttock, stage 3; N39.0 Urinary tract infection, site not specified; E87.1 Hypo-osmolality and hyponatremia; I48.2 Chronic atrial fibrillation; I12.9 Hypertensive chronic kidney disease with stage 1 through stage 4 chronic kidney disease, or unspecified chronic kidney disease; N18.9 Chronic kidney disease, unspecified; E03.9 Hypothyroidism, unspecified; I25.10 Atherosclerotic heart disease of native coronary artery without angina pectoris; H54.42 Blindness, left eye, normal vision right eye; I87.8 Other specified disorders of veins; E86.0 Dehydration; K21.9 Gastro-esophageal reflux disease without esophagitis; E83.52 Hypercalcemia; B96.20 Unspecified Escherichia coli [E. coli] as the cause of diseases classified elsewhere; B96.5 Pseudomonas (aeruginosa) (mallei) (pseudomallei) as the cause of diseases classified elsewhere; G30.9 Alzheimer's disease, unspecified; F02.80 Dementia in other diseases classified elsewhere, unspecified severity, without behavioral disturbance, psychotic disturbance, mood disturbance, and anxiety; Z88.0 Allergy status to penicillin; L89.610 Pressure ulcer of right heel, unstageable; Z74.01 Bed confinement status
CPT/HCPCS: 36415; 71010; 76775; 80048; 80053; 80061; 81001; 81003; 82248; 82330; 82436; 82533; 82550; 82553; 82977; 83036; 83735; 83880; 83930; 83935; 84100; 84133; 84300; 84439; 84443; 84481; 84484; 84550; 85007; 85025; 85610; 85651; 85730; 86140; 87081; 87086; 87181; 89050; 93005; 93306; 93970; C9399